=== PATIENT | female | born 1935 | race Caucasian/White ===

== ENCOUNTER 2018-10-15 16:42 | Inpatient (IN) ==
[2018-10-16] MEDS ORDERED: Naloxone 0.4 MG/ML INJ IVP PRN (03:35)
[2018-10-16] MEDS ORDERED: Ondansetron 4 MG/2 ML VIAL IVP PRN (03:35)
--- NOTE | 2018-10-16 03:49 | Internal Med History&Physical ---
<Maria Luisa Smith - Last Filed: 10/16/18 04:41> Date of Encounter: 10/16/18 Time of Encounter: 03:00 Internal Medicine - H&P: HPI Chief complaint: leg edema History of present illness: Ms. Peng is a 83 year old female past medical history of atrial fibrillation, provoked right lower extremity blood clot, diabetes on insulin, CHF, CKD stage IV, hypertension, hypothyroidism, hyperlipidemia who was transferred from [facility]. She was presented to [facility] after noticing +3 pitting edema bilateral lower extremities. She reported yesterday she started having episodes of emesis which was clear in nature she is unsure of the etiology of emesis but reported she was recently on antibiotics for UTI although no further symptoms of UTI. Emesis was nonbloody and she had no dysphasia or abdominal pain associated with it. She was able to tolerate oral intake although was limited. She reported the lower extremity edema was new in onset although she was taking her oral Lasix but she does have history of CHF. At [facility] she was noted to have elevated BNP at 693 with elevated creatinine of 2.8 and BUN at 44. She was also noted to have troponin 0.07. His morning she is resting comfortably in bed and reports after receiving IV Lasix at the outside facility she had significant improvement in lower extremity edema is feeling much better now. She denies any further episode of nausea or emesis since presenting to [facility]. She also denies chest pain, shortness of breath, follow pain, hematochezia, hematemesis or dysuria. Past Med Surg Social Fam HX - Past Medical History Medical history: arthritis, atrial fibrillation, CHF, COPD, coronary artery disease, DVT, diabetes, hyperlipidemia, hypertension, myocardial infarction, renal disease, thyroid disease Additional medical history: rt leg mole, melanoma, removed Psychiatric history: anxiety - Past Surgical History Surgical History: , cataract, hysterectomy, orthopedic, other, RAYMOND/BSO Additional surgical history: cardiac stents, cataracts,gall stones removed - Social History Smoking Status: Never smoker Smokeless Tobacco Status: No Alcohol use: none Drug use: none - Family History Mother Living Status: Hx Family Cardiac Disorders: Yes Father Adopted: No Family Member Ethnicity: Non- Living Status: Hx Family Cardiac Disorders: Yes (unknown type but of cardiac disease) Hx Family Respiratory Disorders: No Hx Family Cancer: No Hx Family GI Disorders: No Hx Family Endocrine Disorder: Yes Hx Family Neuromuscular Disorders: No Hx Family Neurologic Disorders: No Hx Family HEENT Disorders: No Hx Family Autoimmune Disorders: No Internal Medicine - H&P: Meds Levothyroxine [Synthroid] 88 mcg PO DAILY 01/22/16 [History] hydrALAZINE [HydrALAZINE] 25 mg PO QID 01/22/16 [History] Amiodarone [Cordarone] 200 mg PO DAILY 03/25/16 [History] Docusate [Colace] 100 mg PO BID 03/25/16 [History] Acetaminophen [Tylenol] 650 mg PO Q6HR PRN #0 tablet 04/15/16 [Rx] Albuterol Sulfate [Ventolin Hfa] 1 puff IH Q4H PRN 06/13/16 [History] Allopurinol [Zyloprim 100 MG] 100 mg PO DAILY 03/19/18 [History] Atorvastatin [Lipitor] 10 mg PO DAILY 03/19/18 [History] Carvedilol 3.125 mg PO BID #60 tab 03/19/18 [Rx] Cholecalciferol (Vitamin D3) [Vitamin D3] 2,000 unit PO DAILY 03/19/18 [History] Furosemide [Lasix] 40 mg PO DAILY #60 tablet 03/19/18 [Rx] Aspirin [Lo-Dose Aspirin EC] 81 mg PO DAILY 08/25/18 [History] HYDROcodone/Acet 5/325 mg [[place] 5-325 mg] 1 tab PO Q6H PRN 08/25/18 [History] Hydralazine HCl 50 mg PO QID 08/25/18 [History] Insulin DETEMIR [Levemir] 10 unit SQ HS 08/25/18 [History] Insulin DETEMIR [Levemir] 15 unit SQ QAM 08/25/18 [History] Isosorbide MONOnitrate (24 HR) [Imdur] 60 mg PO DAILY 08/25/18 [History] Loperamide HCl [Imodium A-D] 2 mg PO Q4H PRN 08/25/18 [History] NIFEdipine [Nifedipine ER] 30 mg PO DAILY 08/25/18 [History] Polyethylene Glycol 3350 [MiraLAX] 17 gm PO DAILY 08/25/18 [History] Promethazine [Phenergan] 25 mg PO Q6HR PRN 08/25/18 [History] Saliva Stimulant [Biotene Moisturizing Rinse] 44.3 ml MM TID PRN 08/25/18 [History] Sennosides [Senna] 17.2 mg PO BID 08/25/18 [History] Allergy/AdvReac Type Severity Reaction Status Date / Time acetaminophen [From Vicodin] Allergy See Verified 03/19/18 12:28 Comments Cyclobenzaprine Allergy See Verified 03/19/18 12:28 [From Flexeril] Comments hydrocodone [From Vicodin] Allergy See Verified 03/19/18 12:28 Comments simvastatin AdvReac Muscle Pain Verified 03/19/18 12:28 All Systems PM: A 10-system review of systems was performed and is negative for pertinent findings except as documented above in the HPI. - Constitutional Constitutional: no chills, no fever(s), no weakness - EENT Eyes: no blurry vision, no loss of vision Nose, mouth and throat: dry mouth, no dysphagia, no epistaxis - Cardiovascular Cardiovascular ROS IM: edema, no chest pain, no diaphoresis, no dyspnea, no orthopnea, no palpitations - Respiratory Respiratory: no cough, no dyspnea, no hemoptysis, no wheezing - Gastrointestinal Gastrointestinal: nausea, vomiting, no abdominal pain, no constipation, no diarrhea - Genitourinary Genitourinary: urinary incontinence, no difficulty urinating, no difficulty voiding, no dysuria - Musculoskeletal Musculoskeletal ROS IM: no myalgias, no numbness, no tingling - Integumentary Integumentary IM: no new lesions, no skin ulcer (sacral), no jaundice - Neurological Neurological ROS: no numbness, no paresthesias, no tingling - Psychiatric Psychiatric: no anxiety, no depression - Constitutional Vitals: Temp Pulse Resp BP Pulse Ox 99.6 F 75 15 167/68 91 10/16/18 02:41 10/16/18 02:41 10/16/18 02:41 10/16/18 02:41 10/16/18 02:41 Exam: Gen: Vitals noted. No acute distress. Appears comfortable. Eyes: anicteric sclerae, moist conjunctivae; no lid-lag HENT: Atraumatic; oropharynx clear with dry mucus membranes, and no mucosal ulcerations; normal hard and soft palate Neck: Trachea midline; supple, no thyromegaly Cardiac: RRR, no murmur, +S1/S2. No JVD noted. Pulmonary: CTA bilaterally, no wheezes, rales; mild rhonchi at all lung lobes, equal chest expansion Abdomen: soft, nontender, no guarding. No masses or hepatosplenomegaly MSK: ROM intact, no joint swelling noted Extremities: trace pitting edema bilateral lower extremities, nontender calf Skin: Normal temperature, turgor; no rash, ulcers or subcutaneous nodules Neuro: moves all extremities, no focal deficits. Psych: Appropriate mood and behavior. A&Ox3 - Assessment and Plan (1) CHF exacerbation Current Visit: Yes Status: Acute Assessment and plan: Presented to an outside facility due to bilateral lower extremity edema which was +3 in nature. Received 40 mg IV furosemide at outside facility and lower extremity edema has decreased significantly to trace pitting edema. Exacerbation likely secondary to nonabsorbing oral furosemide due to nausea and emesis. Previous echo was on 08/24/18 and showed EF of 50-55% with mild LVH and mild LV diastolic dysfunction. Continue to monitor intake and output. Continue 40 mg IV Lasix daily. Continue monitor BMP. Continue fluid restriction diet of 1.5 L Daily weight TSH peding Qualifiers: Heart failure type: diastolic Qualified Code(s): I50.33 - Acute on chronic diastolic (congestive) heart failure (2) Nausea & vomiting Current Visit: Yes Status: Acute Assessment and plan: Reports nausea and vomiting onset yesterday it was nonbloody and nonbilious in nature; unknown etiology. Denied any abdominal pain, fever or chills. Has had no further episodes of nausea and emesis since presenting to [facility] and has been tolerating diet. When necessary Zofran ordered. Qualifiers: Vomiting type: unspecified Vomiting Intractability: non-intractable Qualified Code(s): R11.2 - Nausea with vomiting, unspecified (3) Diabetes mellitus Current Visit: Yes Status: Acute Assessment and plan: History of type 2 diabetes is on long-acting insulin outside facility. Continue sliding-scale insulin with diabetic diet. Qualifiers: Diabetes mellitus type: type 2 Diabetes mellitus [facility] insulin use: with exterminator use Diabetes mellitus complication status: with unspecified complications Qualified Code(s): E11.8 - Type 2 diabetes mellitus with unspecified complications; Z79.4 - custodial (current) use of insulin (4) Elevated troponin Current Visit: Yes Status: Acute Assessment and plan: Troponin noted to be 0.07 at the outside facility, likely demand ischemia EKG does not show any acute changes Not complaining of chest pain Trending troponin (5) CKD (chronic kidney disease), stage IV Current Visit: Yes Status: Acute Assessment and plan: History of CKD stage IV baseline GFR since June has been 15. Her creatinine is 2.88 which also appears to be at baseline. Currently producing urine although she is incontinent. (6) Hypertension Current Visit: Yes Status: Acute Assessment and plan: Continue home hydralazine and carvedilol Qualifiers: Hypertension type: essential hypertension Qualified Code(s): I10 - Essential (primary) hypertension (7) Hyperlipidemia Current Visit: Yes Status: Acute Assessment and plan: Continue home atorvastatin Qualifiers: Hyperlipidemia type: unspecified Qualified Code(s): E78.5 - Hyperlipidemia, unspecified (8) Sacral decubitus ulcer, stage II Current Visit: Yes Status: Acute Assessment and plan: Decubital ulcer from outside facility received daily wound care by nursing Continue daily dressing change by nursing here. (9) Hypothyroidism Current Visit: Yes Status: Acute Assessment and plan: Continue home levothyroxine. TSH pending Qualifiers: Hypothyroidism type: unspecified Qualified Code(s): E03.9 - Hypothyroidism, unspecified (10) DVT prophylaxis Current Visit: No Status: Acute Assessment and plan: Subcutaneous heparin every 12 hours - Time Spent With Patient Total time spent is greater than 50% in coordination of care (as documented) at patient's floor/unit and/or counseling patient: <Logan Beltran - Last Filed: 10/16/18 05:44> Date of Encounter: 10/16/18 Internal Medicine - H&P: HPI History of present illness: Ms. Peng is a 83 year old female All Systems PM: A 10-system review of systems was performed and is negative for pertinent findings except as documented above in the HPI. - Constitutional Vitals: Temp Pulse Resp BP Pulse Ox 99.6 F 75 15 167/68 91 10/16/18 02:41 10/16/18 02:41 10/16/18 02:41 10/16/18 02:41 10/16/18 02:41 Internal Med - H&P Results - Labs CBC & Chem 7: 10/16/18 04:18 10/16/18 04:18 Labs: Short CBC 10/16/18 Range/Units 04:18 WBC 12.9 H (4.3-11.1) K/mcL Hgb 9.9 L (11.5-15.4) g/dL Hct 29.1 L (35.3-44.9) % Plt Count 195 (140-400) K/mcL Neutrophils # 11.0 H (1.6-8.9) K/mcL BMP 10/16/18 04:18 Sodium 137 Potassium 3.4 L Chloride 97 L Carbon Dioxide 28 BUN 43 H Creatinine 2.70 H Glucose 164 H Calcium 9.4 Cardiac Enzymes 10/16/18 Range/Units 04:18 Troponin I 0.07 H* (< 0.04) ng/mL - Time Spent With Patient Total time spent is greater than 50% in coordination of care (as documented) at patient's floor/unit and/or counseling patient: - Attending Attestation I saw and evaluated the patient. I reviewed the residents note, performed my own physical examination and agree with findings and plan as documented in the residents note. Patient seen and examined on 10/16/18. Patient presented with CHF exacerbation and lower extremity edema. Elevated troponin likely secondary to CHF as well as kidney disease. Patient also has a sacral decubital ulcer, we will continue with dressing changes, and consider wound care consult if needed. Patient does not see wound care for it out patient. We will continue with lasix, and monitor her renal function. If renal function continues to worsen, consider nephrology c onsultation.
[2018-10-16] MEDS ORDERED: Dextrose Gel 15 GM/37.5 ML TUBE PO PRN ×2 (03:55)
[2018-10-16] MEDS ORDERED: D5% in Water 1,000 ML IVC PRN (03:55)
[2018-10-16] MEDS ORDERED: *HR* Dextrose 50 % in Water (Syg) 50 ML SYRINGE IVP PRN (03:55)
[2018-10-16 04:49] LABS: Basophils % 0.2 %; Eosinophils % 0.2 %; Hematocrit 29.1 % (35.3-44.9); Hemoglobin 9.9 g/dL (11.5-15.4); Immature Granulocytes % 0.4 % (0-4); Lymphocytes # 0.8 K/mcL (0.6-4.6); Lymphocytes % 6.1 %; Mean Corpuscular Hemoglobin 35.4 pg (28.0-33.3); Mean Corpuscular Volume 103.9 fL (83.0-100.0); Mean Platelet Volume 11.2 fL (9.4-12.4); Monocytes # 0.9 K/mcL (0.0-1.3); Monocytes % 7.3 %; Platelet Count 195 K/mcL (140-400); Red Cell Distribution Width 14.6 % (11.5-14.5); Segmented Neutrophils % 85.8 %
[2018-10-16] MEDS: *HR* Heparin 5,000 UNIT/ML VIAL SQ SCH ×2 (04:56→17:55)
[2018-10-16 05:07] LABS: Magnesium 1.9 mg/dL (1.6-2.6)
[2018-10-16 05:08] LABS: Calcium 9.4 mg/dL (8.6-10.3); Potassium 3.4 mEq/L (3.5-5.1)
[2018-10-16 05:18] LABS: Troponin I 0.07 ng/mL (< 0.04)
[2018-10-16] MEDS: hydrALAZINE 25 MG TABLET PO SCH ×4 (08:33→19:49)
[2018-10-16] MEDS: Aspirin Enteric Coated 81 MG Tablet PO SCH (08:33)
[2018-10-16] MEDS: *HR* Amiodarone 200 MG TABLET PO SCH (08:33)
[2018-10-16] MEDS: Furosemide 40 MG/4 ML VIAL IVP SCH (08:34)
[2018-10-16] MEDS: Insulin LISPRO 300 UNITS/3 ML VIAL SQ SCH ×4 (08:34→21:04)
[2018-10-16] MEDS: Isosorbide MONOnitrate (24 HR) 30 MG TAB.ER.24H PO SCH (17:13)
[2018-10-17 04:46] LABS: Basophils % 0.3 %; Eosinophils # 0.2 K/mcL (0.0-0.6); Eosinophils % 2.4 %; Hematocrit 27.8 % (35.3-44.9); Hemoglobin 9.2 g/dL (11.5-15.4); Immature Granulocytes % 0.3 % (0-4); Lymphocytes % 14.7 %; Mean Corpuscular HGB Conc 33.1 g/dL (31.6-35.5); Mean Corpuscular Volume 105.7 fL (83.0-100.0); Mean Platelet Volume 11.2 fL (9.4-12.4); Monocytes # 0.7 K/mcL (0.0-1.3); Monocytes % 9.9 %; Neutrophils # 4.9 K/mcL (1.6-8.9); Platelet Count 180 K/mcL (140-400); Red Blood Count 2.63 M/mcL (3.82-4.97); Red Cell Distribution Width 14.5 % (11.5-14.5); Segmented Neutrophils % 72.4 %
[2018-10-17 05:05] LABS: Calcium 9.7 mg/dL (8.6-10.3); Potassium 3.9 mEq/L (3.5-5.1)
[2018-10-17] MEDS: *HR* Heparin 5,000 UNIT/ML VIAL SQ SCH ×2 (05:20→17:16)
[2018-10-17] MEDS: Aspirin Enteric Coated 81 MG Tablet PO SCH (09:21)
[2018-10-17] MEDS: hydrALAZINE 25 MG TABLET PO SCH ×4 (09:21→21:41)
[2018-10-17] MEDS: Furosemide 40 MG/4 ML VIAL IVP SCH (09:21)
[2018-10-17] MEDS: *HR* Amiodarone 200 MG TABLET PO SCH (09:21)
[2018-10-17] MEDS: Cholecalciferol (D-3) 1,000 UNIT TABLET PO SCH (09:21)
[2018-10-17] MEDS: Isosorbide MONOnitrate (24 HR) 30 MG TAB.ER.24H PO SCH (09:21)
[2018-10-17] MEDS: Insulin LISPRO 300 UNITS/3 ML VIAL SQ SCH ×4 (09:24→21:40)
[2018-10-17] MEDS ORDERED: Acetaminophen 325 MG TABLET PO PRN (16:05)
[2018-10-17] MEDS ORDERED: *HR* HYDROcodone/Acet 5/325 mg TABLET PO PRN (16:05)
--- NOTE | 2018-10-17 16:20 | Internal Med Progress Note ---
Hospitalist Progress Note - Encounter Date of Encounter: 10/17/18 Time of Encounter: 14:00 - Subjective Interval History: Patient was seen and examined at bedside currently states that her breathing has improved as well as lower extremity edema and is feeling much better. Denies any chest pain or shortness of breath - Exam Vitals: Temp Pulse Resp BP Pulse Ox 98.8 F 60 16 120/64 89 10/17/18 15:26 10/17/18 15:26 10/17/18 15:26 10/17/18 15:26 10/17/18 15:26 Exam: Gen: Vitals noted. No acute distress. Appears comfortable. Eyes: anicteric sclerae, moist conjunctivae; no lid-lag HENT: Atraumatic; oropharynx clear with dry mucus membranes, and no mucosal ulcerations; normal hard and soft palate Neck: Trachea midline; supple, no thyromegaly Cardiac: RRR, no murmur, +S1/S2. No JVD noted. Pulmonary: CTA bilaterally, no wheezes, rales; mild rhonchi at all lung lobes, equal chest expansion Abdomen: soft, nontender, no guarding. No masses or hepatosplenomegaly MSK: ROM intact, no joint swelling noted Extremities: trace pitting edema bilateral lower extremities, nontender calf Skin: Normal temperature, turgor; no rash, ulcers or subcutaneous nodules Neuro: moves all extremities, no focal deficits. Psych: Appropriate mood and behavior. A&Ox3 - Assessment and Plan (1) CHF exacerbation Current Visit: Yes Status: Acute Assessment and Plan: Presented to an outside facility due to bilateral lower extremity edema which was +3 in nature.- Edema has improved trace edema to lower strength bilaterally We will continue with IV Lasix today and convert to oral in the a.m. Monitor intake and output daily weights Low-sodium diet with 1.5 L fluid restriction TSH within normal limits Oxygen as needed to maintain SPO2 greater than 90% (2) DVT prophylaxis Current Visit: No Status: Acute Assessment and Plan: Subcutaneous heparin every 12 hours (3) Nausea & vomiting Current Visit: Yes Status: Acute Assessment and Plan: Reports nausea and vomiting onset it was nonbloody and nonbilious in nature; unknown etiology. Denied any abdominal pain, fever or chills. Has had no further episodes of nausea and emesis since presenting to [facility] and has been tolerating diet. When necessary Zofran ordered. (4) Diabetes mellitus Current Visit: Yes Status: Acute Assessment and Plan: History of type 2 diabetes is on long-acting insulin outside facility. Continue sliding-scale insulin with diabetic diet. (5) CKD (chronic kidney disease), stage IV Current Visit: Yes Status: Acute Assessment and Plan: History of CKD stage IV baseline GFR since June has been 15. Her creatinine is 2.75 which also appears to be at baseline. Currently producing urine although she is incontinent. (6) Hypertension Current Visit: Yes Status: Acute Assessment and Plan: Continue home hydralazine and carvedilol (7) Hyperlipidemia Current Visit: Yes Status: Acute Assessment and Plan: Continue home atorvastatin (8) Hypothyroidism Current Visit: Yes Status: Acute Assessment and Plan: Continue home levothyroxine. TSH within normal limits (9) Sacral decubitus ulcer, stage II Current Visit: Yes Status: Acute Assessment and Plan: Decubital ulcer from outside facility received daily wound care by nursing Continue daily dressing change by nursing here. (10) Elevated troponin Current Visit: Yes Status: Acute Assessment and Plan: Troponin elevated, likely demand ischemia-denies any chest pain EKG does not show any acute changes Continuous cardiac monitoring - Time Spent with Patient Total time spent is greater than 50% in coordination of care (as documented) at patient's floor/unit and/or counseling patient: Internal Medicine: Result - Labs CBC & Chem 7: 10/17/18 04:01 10/17/18 04:01 Labs: Short CBC 10/17/18 Range/Units 04:01 WBC 6.8 (4.3-11.1) K/mcL Hgb 9.2 L (11.5-15.4) g/dL Hct 27.8 L (35.3-44.9) % Plt Count 180 (140-400) K/mcL Neutrophils # 4.9 (1.6-8.9) K/mcL BMP 10/17/18 04:01 Sodium 138 Potassium 3.9 Chloride 99 Carbon Dioxide 29 BUN 49 H Creatinine 2.75 H Glucose 166 H Calcium 9.7 Cardiac Enzymes 10/16/18 Range/Units 17:51 Troponin I 0.12 H* (< 0.04) ng/mL Consult Discharge Plan - Plan Referrals: Tacos Fox MD [Partnered Physician] - (Appointment has been requested.) __ (1) CHF exacerbation Qualifiers: Heart failure type: diastolic Qualified Code(s): I50.33 - Acute on chronic diastolic (congestive) heart failure (3) Nausea & vomiting Qualifiers: Vomiting type: unspecified Vomiting Intractability: non-intractable Qualified Code(s): R11.2 - Nausea with vomiting, unspecified (4) Diabetes mellitus Qualifiers: Diabetes mellitus type: type 2 Diabetes mellitus shelter insulin use: with superintendent marine oil [employer] use Diabetes mellitus complication status: with unspecified complica tions Qualified Code(s): E11.8 - Type 2 diabetes mellitus with unspecified complications; Z79.4 - group home (current) use of insulin (6) Hypertension Qualifiers: Hypertension type: essential hypertension Qualified Code(s): I10 - Essential (primary) hypertension (7) Hyperlipidemia Qualifiers: Hyperlipidemia type: unspecified Qualified Code(s): E78.5 - Hyperlipidemia, unspecified (8) Hypothyroidism Qualifiers: Hypothyroidism type: unspecified Qualified Code(s): E03.9 - Hypothyroidism, unspecified
[2018-10-18] MEDS: *HR* Heparin 5,000 UNIT/ML VIAL SQ SCH (05:49)
[2018-10-18 06:42] LABS: Basophils % 0.2 %; Eosinophils # 0.2 K/mcL (0.0-0.6); Eosinophils % 2.7 %; Hematocrit 27.7 % (35.3-44.9); Hemoglobin 9.1 g/dL (11.5-15.4); Immature Granulocytes % 0.5 % (0-4); Lymphocytes % 18.8 %; Mean Corpuscular HGB Conc 32.9 g/dL (31.6-35.5); Mean Corpuscular Volume 106.5 fL (83.0-100.0); Mean Platelet Volume 11.1 fL (9.4-12.4); Monocytes # 0.6 K/mcL (0.0-1.3); Neutrophils # 3.7 K/mcL (1.6-8.9); Platelet Count 199 K/mcL (140-400); Red Cell Distribution Width 14.3 % (11.5-14.5); Segmented Neutrophils % 67.8 %
[2018-10-18 07:00] LABS: Calcium 10.1 mg/dL (8.6-10.3); Potassium 3.7 mEq/L (3.5-5.1)
[2018-10-18] MEDS: Aspirin Enteric Coated 81 MG Tablet PO SCH (08:13)
[2018-10-18] MEDS: Cholecalciferol (D-3) 1,000 UNIT TABLET PO SCH (08:13)
[2018-10-18] MEDS: Isosorbide MONOnitrate (24 HR) 30 MG TAB.ER.24H PO SCH (08:14)
[2018-10-18] MEDS: Insulin LISPRO 300 UNITS/3 ML VIAL SQ SCH ×2 (08:14→11:41)
[2018-10-18] MEDS: hydrALAZINE 25 MG TABLET PO SCH ×2 (08:14→11:41)
[2018-10-18] MEDS: *HR* Amiodarone 200 MG TABLET PO SCH (08:14)
[2018-10-18] MEDS ORDERED: Furosemide 40 MG TABLET PO SCH (09:00)
[2018-10-18 11:24] VITALS: BP 154/64
--- NOTE | 2018-10-18 13:32 | Discharge Summary ---
- NOTES TO OUTPATIENT PROVIDER Notes to Outpatient Provider: monitor chemistry - cont lasix 40mg daily Date of Encounter: 10/18/18 Time of Encounter: 13:29 - Discharge Diagnosis (1) CHF exacerbation Priority: Primary Status: Acute Qualifiers: Heart failure type: diastolic Qualified Code(s): I50.33 - Acute on chronic diastolic (congestive) heart failure (2) Nausea & vomiting Priority: Secondary Status: Acute Qualifiers: Vomiting type: unspecified Vomiting Intractability: non-intractable Qualified Code(s): R11.2 - Nausea with vomiting, unspecified (3) Diabetes mellitus Priority: Secondary Status: Acute Qualifiers: Diabetes mellitus type: type 2 Diabetes mellitus bliss press operator insulin use: with bliss press operator use Diabetes mellitus complication status: with unspecified complications Qualified Code(s): E11.8 - Type 2 diabetes mellitus with unspecified complications; Z79.4 - order manager (current) use of insulin (4) CKD (chronic kidney disease), stage IV Priority: Secondary Status: Acute (5) Hypertension Priority: Secondary Status: Acute Qualifiers: Hypertension type: essential hypertension Qualified Code(s): I10 - Essential (primary) hypertension (6) Hyperlipidemia Priority: Secondary Status: Acute Qualifiers: Hyperlipidemia type: unspecified Qualified Code(s): E78.5 - Hyperlipidemia, unspecified (7) Hypothyroidism Priority: Secondary Status: Acute Qualifiers: Hypothyroidism type: unspecified Qualified Code(s): E03.9 - Hypothyroidism, unspecified (8) Sacral decubitus ulcer, stage II Priority: Secondary Status: Acute (9) Elevated troponin Priority: Secondary Status: Acute Hospital course: Ms. Peng is a 83 year old female astragal history of atrial fibrillation provoked right lower extremity blood clot diabetes on insulin CHF CKG stage IV hypertension hypothyroid hyperlipidemia transferred from [facility] after presenting with 3+ pitting edema to lower extremities bilaterally. She did have episode of emesis prior to presentation was recently treated for UTI she was noted to have elevated BNP and elevated creatinine she was given IV Lasix and transferred to [facility] for further workup and evaluation. Patient was diuresed placed on fluid restriction lower extremity swelling improved-previous echo completed on 08/24/18 showed EF of 50-55% with mild LVH and mild LV diastolic dysfunction. Troponin initially elevated but no chest pain -most likely demand ischemia Patient states lower extremity swelling greatly improved no nausea or vomiting during admission or urinary complaints.-Creatinine remained around baseline during admission-patient was transitioned back to oral Lasix-vital signs are stable at this time-advised patient to follow-up with primary care provider and nephrology. Patient verbalized understanding - Time Spent with Patient Total time spent providing and/or coordinating discharge services: - Discharge Medications Prescriptions: Continue Levothyroxine [Synthroid] 88 mcg PO QAM hydrALAZINE [HydrALAZINE] 25 mg PO QID Hydralazine HCl 50 mg PO QID HYDROcodone/Acet 5/325 mg [Weldon 5-325 mg] 1 tab PO Q6H PRN PRN Reason: Pain Isosorbide MONOnitrate (24 HR) [Imdur] 60 mg PO DAILY Loperamide HCl [Imodium A-D] 2 mg PO Q4H PRN PRN Reason: Diarrhea Promethazine [Phenergan] 25 mg PO Q6HR PRN PRN Reason: Nausea Saliva Stimulant [Biotene Moisturizing Rinse] 0 ml MM AD PRN PRN Reason: Dry Mouth Insulin DETEMIR [Levemir] 15 unit SQ HS Insulin DETEMIR [Levemir] 20 unit SQ QAM Sennosides [Senna] 17.2 mg PO BID Acetaminophen [Tylenol] 650 mg PO Q6HR PRN PRN Reason: PAIN/FEVER Aspirin 81 mg PO QAM NIFEdipine [Nifedipine ER] 60 mg PO DAILY Polyethylene Glycol 3350 [Natura-Lax] 17 gm PO DAILY Docusate [Colace] 100 mg PO BID Amiodarone [Cordarone] 200 mg PO QAM Albuterol Sulfate [Ventolin Hfa] 2 puff IH Q4H PRN PRN Reason: Shortness Of Breath/Wheezing Allopurinol [Zyloprim 100 MG] 100 mg PO DAILY Atorvastatin [Lipitor] 10 mg PO DAILY Cholecalciferol (Vitamin D3) [Vitamin D3] 2,000 unit PO DAILY Carvedilol 3.125 mg PO BID #60 tab Furosemide [Lasix] 40 mg PO DAILY #60 tablet Home Medications: Levothyroxine [Synthroid] 88 mcg PO QAM 01/22/16 [History] hydrALAZINE [HydrALAZINE] 25 mg PO QID 01/22/16 [History] Amiodarone [Cordarone] 200 mg PO QAM 03/25/16 [History] Docusate [Colace] 100 mg PO BID 03/25/16 [History] Albuterol Sulfate [Ventolin Hfa] 2 puff IH Q4H PRN 06/13/16 [History] Allopurinol [Zyloprim 100 MG] 100 mg PO DAILY 03/19/18 [History] Atorvastatin [Lipitor] 10 mg PO DAILY 03/19/18 [History] Carvedilol 3.125 mg PO BID #60 tab 03/19/18 [Rx] Cholecalciferol (Vitamin D3) [Vitamin D3] 2,000 unit PO DAILY 03/19/18 [History] Furosemide [Lasix] 40 mg PO DAILY #60 tablet 03/19/18 [Rx] HYDROcodone/Acet 5/325 mg [Weldon 5-325 mg] 1 tab PO Q6H PRN 08/25/18 [History] Hydralazine HCl 50 mg PO QID 08/25/18 [History] Insulin DETEMIR [Levemir] 15 unit SQ HS 08/25/18 [History] Insulin DETEMIR [Levemir] 20 unit SQ QAM 08/25/18 [History] Isosorbide MONOnitrate (24 HR) [Imdur] 60 mg PO DAILY 08/25/18 [History] Loperamide HCl [Imodium A-D] 2 mg PO Q4H PRN 08/25/18 [History] Promethazine [Phenergan] 25 mg PO Q6HR PRN 08/25/18 [History] Saliva Stimulant [Biotene Moisturizing Rinse] 0 ml MM AD PRN 08/25/18 [History] Sennosides [Senna] 17.2 mg PO BID 08/25/18 [History] Acetaminophen [Tylenol] 650 mg PO Q6HR PRN 10/17/18 [History] Aspirin 81 mg PO QAM 10/17/18 [History] NIFEdipine [Nifedipine ER] 60 mg PO DAILY 10/17/18 [History] Polyethylene Glycol 3350 [Natura-Lax] 17 gm PO DAILY 10/17/18 [History] Allergies/Adverse Reactions: Allergy/AdvReac Type Severity Reaction Status Date / Time acetaminophen [From Vicodin] Allergy See Verified 03/19/18 12:28 Comments Cyclobenzaprine Allergy See Verified 03/19/18 12:28 [From Flexeril] Comments hydrocodone [From Vicodin] Allergy See Verified 03/19/18 12:28 Comments simvastatin AdvReac Muscle Pain Verified 03/19/18 12:28 Date of admission: 10/17/18 17:56 Primary care physician: PCP NONE Consults: 10/16/18 08:22 Consult to Nurse Navigator [CONS] Routine Comment: CHF Discharging clinician: Gloria Herrera Anticipated date of discharge: 10/18/18 - Constitutional Vitals: Temp Pulse Resp BP Pulse Ox 98.9 F 54 20 154/64 94 10/18/18 11:22 10/18/18 11:22 10/18/18 11:22 10/18/18 11:22 10/18/18 12:11 Exam: Skin: Free of rash and discoloration. Eyes: Sclera is white. There is no discharge from eyes. ENMT: Oral/pharyngeal mucosa is normal in appearance. There is no discharge from nose or ears. Respiratory: Normal breath sounds with no crackles and wheezes bilaterally. CV: Heart is regular with no gallop or murmur. GI: Abdomen is flat and soft with no palpable mass or visceromegaly. : There is no tenderness in patient's flanks bilaterally. Neuro exam: He has good strength in upper and lower extremities. He has normal eye movements. Psychiatric: He has normal affect. His thought process is appropriate to the situation. - Patient Status Disposition: Home, Self-Care Condition: Good Functional capacity at discharge: wheelchair bound Overall status at discharge: patient is back to baseline - Discharge Instructions Follow Up With: Tacos Fox MD [Partnered Physician] - (Appointment has been requested.) - Diet and Activity Activity: wear oxygen at all times Diet: advance to your usual diet
== END 2018-10-18 17:28 | disposition home or self-care (01) | DRG 291 ==
LOC: 3BNU
PROVIDERS: ADMIT Internal Medicine Nephrology; ATTEND Internal Medicine Nephrology

== ENCOUNTER 2019-02-25 18:16 | Inpatient (IN) ==
[2019-02-26] MEDS ORDERED: D5% in Water 1,000 ML IVC PRN
[2019-02-26] MEDS ORDERED: Dextrose Gel 15 GM/37.5 ML TUBE PO PRN ×2
[2019-02-26] MEDS ORDERED: *HR* Dextrose 50 % in Water (Syg) 50 ML SYRINGE IVP PRN
[2019-02-26] MEDS ORDERED: Albuterol 2.5 MG/3 ML NEBULIZER IH PRN (01:14)
[2019-02-26] MEDS ORDERED: 0.9 % Sodium Chloride 1,000 ML IVC SCH (01:15)
[2019-02-26] MEDS ORDERED: *HR* HYDROcodone/Acet 5/325 mg TABLET PO PRN (01:19)
[2019-02-26] MEDS ORDERED: Naloxone 0.4 MG/ML INJ IVP PRN (01:21)
[2019-02-26 01:55] LABS: Basophils % 0.1 %; Eosinophils # 0.2 K/mcL (0.0-0.6); Eosinophils % 1.7 %; Hematocrit 27.6 % (35.3-44.9); Hemoglobin 9.2 g/dL (11.5-15.4); Immature Granulocytes % 0.4 % (0-4); Lymphocytes # 1.1 K/mcL (0.6-4.6); Mean Corpuscular HGB Conc 33.3 g/dL (31.6-35.5); Mean Corpuscular Hemoglobin 34.2 pg (28.0-33.3); Mean Corpuscular Volume 102.6 fL (83.0-100.0); Monocytes % 9.3 %; Neutrophils # 8.6 K/mcL (1.6-8.9); Platelet Count 194 K/mcL (140-400); Red Blood Count 2.69 M/mcL (3.82-4.97); Red Cell Distribution Width 14.3 % (11.5-14.5); Segmented Neutrophils % 78.5 %
[2019-02-26] MEDS ORDERED: cefTRIAXone 2,000 MG in Water for inj. (sterile) 20 ML IVP SCH ×2 (02:00→11:00)
[2019-02-26] MEDS ORDERED: Azithromycin 500 MG in 0.9 % Sodium Chloride 250 ML IVPB SCH (02:00)
[2019-02-26 02:04] LABS: Albumin 3.7 g/dL (3.5-5.7); Albumin/Globulin Ratio 1.7 (1.1-2.2); Bilirubin,Total 1.3 mg/dL (0.3-1.0); Calcium 9.7 mg/dL (8.6-10.3); Globulin 2.2 g/dL (2.4-3.5); Magnesium 2.1 mg/dL (1.6-2.6); Potassium 3.4 mEq/L (3.5-5.1); Total Protein 5.9 g/dL (6.4-8.9)
[2019-02-26 02:08] LABS: Prothrombin Time 11.8 Seconds (9.4-12.1)
[2019-02-26 02:11] LABS: Activated Partial Thrombo Time 23.1 Seconds (26.0-36.0)
[2019-02-26] MEDS: *HR* Promethazine 25 MG/ML VIAL IVP PRN (02:50)
[2019-02-26] MEDS: *HR* Heparin 5,000 UNIT/ML VIAL SQ SCH ×3 (05:06→21:41)
[2019-02-26] MEDS ORDERED: Prochlorperazine 10 MG/2 ML VIAL IVP PRN (05:22)
[2019-02-26] MEDS ORDERED: Pantoprazole 40 MG VIAL IVP SCH (06:00)
[2019-02-26 07:34] LABS: Estimated Average Glucose 137 mg/dl
[2019-02-26] MEDS: Insulin LISPRO 300 UNITS/3 ML VIAL SQ SCH ×3 (08:05→16:46)
[2019-02-26] MEDS: carvediloL 6.25 MG TABLET PO SCH ×2 (08:06→17:42)
[2019-02-26] MEDS: Isosorbide MONOnitrate (24 HR) 60 MG TAB.ER.24H PO SCH (08:06)
[2019-02-26] MEDS: Sennosides 8.6 MG TABLET PO SCH ×2 (08:06→21:44)
[2019-02-26] MEDS: Aspirin 81 MG TAB.CHEW PO SCH (08:06)
[2019-02-26] MEDS: *HR* Amiodarone 200 MG TABLET PO SCH (08:06)
[2019-02-26] MEDS: Cholecalciferol (D-3) 1,000 UNIT (25MCG) TABLET PO SCH (08:06)
[2019-02-26] MEDS: hydrALAZINE 25 MG TABLET PO SCH ×4 (08:07→21:41)
[2019-02-26] MEDS: Insulin DETEMIR 100 UNIT/ML X5UNITS SQ SCH ×2 (08:11→21:41)
[2019-02-26] MEDS ORDERED: Azithromycin 250 MG TABLET PO SCH (11:00)
[2019-02-26] MEDS: Azithromycin 250 MG TABLET PO SCH (14:31)
[2019-02-27] MEDS ORDERED: *HR* Metoprolol 5 MG/5 ML VIAL IVP ONE (00:55)
[2019-02-27 04:21] LABS: Folate 11.6 ng/mL (3.0-16.0)
[2019-02-27] MEDS: *HR* Heparin 5,000 UNIT/ML VIAL SQ SCH ×3 (05:43→21:38)
[2019-02-27] MEDS: hydrALAZINE 25 MG TABLET PO SCH ×4 (07:20→22:22)
[2019-02-27] MEDS: Azithromycin 250 MG TABLET PO SCH (07:20)
[2019-02-27] MEDS: Cholecalciferol (D-3) 1,000 UNIT (25MCG) TABLET PO SCH (07:20)
[2019-02-27] MEDS: carvediloL 6.25 MG TABLET PO SCH ×2 (07:21→16:36)
[2019-02-27] MEDS: Aspirin 81 MG TAB.CHEW PO SCH (07:21)
[2019-02-27] MEDS: Insulin LISPRO 300 UNITS/3 ML VIAL SQ SCH ×3 (07:21→17:59)
[2019-02-27] MEDS: Sennosides 8.6 MG TABLET PO SCH ×2 (07:21→21:38)
[2019-02-27] MEDS: Isosorbide MONOnitrate (24 HR) 60 MG TAB.ER.24H PO SCH (07:21)
[2019-02-27] MEDS: Cefdinir 300 MG CAPSULE PO SCH (07:21)
[2019-02-27] MEDS: *HR* Amiodarone 200 MG TABLET PO SCH (07:21)
[2019-02-27] MEDS: Insulin DETEMIR 100 UNIT/ML X5UNITS SQ SCH ×2 (07:24→19:52)
[2019-02-27] MEDS: *HR* Promethazine 25 MG/ML VIAL IVP PRN (07:29)
[2019-02-27 09:28] LABS: Calcium 9.8 mg/dL (8.6-10.3)
[2019-02-27] MEDS ORDERED: Albuterol 2.5 MG/3 ML NEBULIZER IH PRN (10:07)
[2019-02-27] MEDS ORDERED: Lactulose Oral Soln 20 GM/30 ML UDC PO ONE (10:32)
[2019-02-27] MEDS: MethylPREDNISolone 40 MG/ML VIAL IVP SCH ×2 (11:11→16:36)
[2019-02-27] MEDS: Ipratropium/Albuterol Neb 3 ML IH SCH ×3 (11:20→19:52)
[2019-02-27] MEDS ORDERED: Albumin 25% 25gram/100mL 25 GM/100 ML IV.SOLN IVPB SCH (16:01)
[2019-02-27] MEDS: Albumin 25% 25gram/100mL 25 GM/100 ML IV.SOLN IVPB SCH (16:36)
[2019-02-27] MEDS: Furosemide 40 MG/4 ML VIAL IVP SCH (17:59)
[2019-02-28 05:15] LABS: Calcium 9.5 mg/dL (8.6-10.3); Potassium 3.8 mEq/L (3.5-5.1)
[2019-02-28] MEDS: *HR* Heparin 5,000 UNIT/ML VIAL SQ SCH ×3 (06:46→21:04)
[2019-02-28] MEDS: MethylPREDNISolone 40 MG/ML VIAL IVP SCH ×2 (06:46→17:07)
[2019-02-28] MEDS: Albumin 25% 25gram/100mL 25 GM/100 ML IV.SOLN IVPB SCH ×2 (06:47→14:46)
[2019-02-28] MEDS: Ipratropium/Albuterol Neb 3 ML IH SCH ×4 (07:27→20:04)
[2019-02-28] MEDS: Insulin LISPRO 300 UNITS/3 ML VIAL SQ SCH ×3 (08:58→17:07)
[2019-02-28] MEDS: Furosemide 40 MG/4 ML VIAL IVP SCH ×2 (08:58→17:07)
[2019-02-28] MEDS: Azithromycin 250 MG TABLET PO SCH (08:58)
[2019-02-28] MEDS: Cholecalciferol (D-3) 1,000 UNIT (25MCG) TABLET PO SCH (08:58)
[2019-02-28] MEDS: Cefdinir 300 MG CAPSULE PO SCH (08:59)
[2019-02-28] MEDS: Aspirin 81 MG TAB.CHEW PO SCH (08:59)
[2019-02-28] MEDS: *HR* Amiodarone 200 MG TABLET PO SCH (08:59)
[2019-02-28] MEDS: Sennosides 8.6 MG TABLET PO SCH ×2 (08:59→21:04)
[2019-02-28] MEDS: carvediloL 6.25 MG TABLET PO SCH ×2 (08:59→17:07)
[2019-02-28] MEDS: Isosorbide MONOnitrate (24 HR) 60 MG TAB.ER.24H PO SCH (08:59)
[2019-02-28] MEDS: hydrALAZINE 25 MG TABLET PO SCH ×4 (08:59→21:04)
[2019-02-28] MEDS: Insulin DETEMIR 100 UNIT/ML X5UNITS SQ SCH ×2 (10:21→21:04)
[2019-03-01] MEDS: Albumin 25% 25gram/100mL 25 GM/100 ML IV.SOLN IVPB SCH (06:02)
[2019-03-01] MEDS: *HR* Heparin 5,000 UNIT/ML VIAL SQ SCH ×3 (06:07→21:41)
[2019-03-01] MEDS: MethylPREDNISolone 40 MG/ML VIAL IVP SCH ×2 (06:07→18:01)
[2019-03-01 06:09] LABS: Calcium 9.9 mg/dL (8.6-10.3); Potassium 3.7 mEq/L (3.5-5.1)
[2019-03-01] MEDS: Ipratropium/Albuterol Neb 3 ML IH SCH ×4 (07:23→19:58)
[2019-03-01] MEDS: Insulin LISPRO 300 UNITS/3 ML VIAL SQ SCH ×3 (09:31→18:00)
[2019-03-01] MEDS: Furosemide 40 MG/4 ML VIAL IVP SCH (09:34)
[2019-03-01] MEDS: Aspirin 81 MG TAB.CHEW PO SCH (10:16)
[2019-03-01] MEDS: Sennosides 8.6 MG TABLET PO SCH ×2 (10:16→21:42)
[2019-03-01] MEDS: hydrALAZINE 25 MG TABLET PO SCH ×4 (10:16→21:42)
[2019-03-01] MEDS: Azithromycin 250 MG TABLET PO SCH (10:16)
[2019-03-01] MEDS: Cefdinir 300 MG CAPSULE PO SCH (10:16)
[2019-03-01] MEDS: Isosorbide MONOnitrate (24 HR) 60 MG TAB.ER.24H PO SCH (10:17)
[2019-03-01] MEDS: *HR* Amiodarone 200 MG TABLET PO SCH (10:17)
[2019-03-01] MEDS: carvediloL 6.25 MG TABLET PO SCH ×2 (10:17→17:59)
[2019-03-01] MEDS: Cholecalciferol (D-3) 1,000 UNIT (25MCG) TABLET PO SCH (10:17)
[2019-03-01] MEDS: Insulin DETEMIR 100 UNIT/ML X5UNITS SQ SCH ×2 (10:31→21:42)
[2019-03-02] MEDS: *HR* Heparin 5,000 UNIT/ML VIAL SQ SCH ×3 (05:31→21:57)
[2019-03-02 06:23] LABS: Hematocrit 26.4 % (35.3-44.9); Hemoglobin 8.5 g/dL (11.5-15.4); Immature Granulocytes % 0.3 % (0-4); Lymphocytes # 0.4 K/mcL (0.6-4.6); Lymphocytes % 5.5 %; Mean Corpuscular HGB Conc 32.2 g/dL (31.6-35.5); Mean Corpuscular Hemoglobin 33.7 pg (28.0-33.3); Mean Corpuscular Volume 104.8 fL (83.0-100.0); Mean Platelet Volume 11.8 fL (9.4-12.4); Monocytes # 0.3 K/mcL (0.0-1.3); Monocytes % 4.8 %; Neutrophils # 5.8 K/mcL (1.6-8.9); Platelet Count 194 K/mcL (140-400); Red Blood Count 2.52 M/mcL (3.82-4.97); Red Cell Distribution Width 14.5 % (11.5-14.5); Segmented Neutrophils % 89.4 %; White Blood Count 6.5 K/mcL (4.3-11.1)
[2019-03-02 06:40] LABS: BUN/Creatinine Ratio 23 (6-26); Blood Urea Nitrogen 76 mg/dL (8-23); Carbon Dioxide 30 mEq/L (23-29); Chloride 99 mEq/L (98-107); Glucose 93 mg/dL (70-105); Lactate Dehydrogenase 194 Units/L (140-271); Magnesium 2.9 mg/dL (1.6-2.6); Osmolality,Calculated 314 (280-300); Sodium 141 mEq/L (136-145); Total Protein 6.3 g/dL (6.4-8.9); eGFR For African Americans 16 (> 60); eGFR For Non-African Americans 13 (> 60)
[2019-03-02] MEDS: Ipratropium/Albuterol Neb 3 ML IH SCH ×4 (07:31→20:21)
[2019-03-02] MEDS: hydrALAZINE 25 MG TABLET PO SCH ×4 (07:56→21:58)
[2019-03-02] MEDS: Cefdinir 300 MG CAPSULE PO SCH (07:57)
[2019-03-02] MEDS: Cholecalciferol (D-3) 1,000 UNIT (25MCG) TABLET PO SCH (07:57)
[2019-03-02] MEDS: *HR* Amiodarone 200 MG TABLET PO SCH (07:57)
[2019-03-02] MEDS: Aspirin 81 MG TAB.CHEW PO SCH (07:57)
[2019-03-02] MEDS: carvediloL 6.25 MG TABLET PO SCH ×2 (07:57→18:02)
[2019-03-02] MEDS: Azithromycin 250 MG TABLET PO SCH (07:57)
[2019-03-02] MEDS: Isosorbide MONOnitrate (24 HR) 60 MG TAB.ER.24H PO SCH (07:57)
[2019-03-02] MEDS: Sennosides 8.6 MG TABLET PO SCH ×2 (07:57→21:58)
[2019-03-02] MEDS: Insulin LISPRO 300 UNITS/3 ML VIAL SQ SCH ×3 (07:58→18:02)
[2019-03-02] MEDS ORDERED: MethylPREDNISolone 40 MG/ML VIAL IVP SCH (09:00)
[2019-03-02] MEDS: Insulin DETEMIR 100 UNIT/ML X5UNITS SQ SCH ×2 (09:56→21:57)
[2019-03-03] MEDS: *HR* Heparin 5,000 UNIT/ML VIAL SQ SCH ×2 (05:44→21:06)
[2019-03-03 07:23] LABS: Calcium 9.6 mg/dL (8.6-10.3); Potassium 4.4 mEq/L (3.5-5.1)
[2019-03-03] MEDS: Ipratropium/Albuterol Neb 3 ML IH SCH ×4 (07:54→20:09)
[2019-03-03] MEDS: Sennosides 8.6 MG TABLET PO SCH ×2 (08:29→21:06)
[2019-03-03] MEDS: carvediloL 6.25 MG TABLET PO SCH (08:30)
[2019-03-03] MEDS: *HR* Amiodarone 200 MG TABLET PO SCH (08:30)
[2019-03-03] MEDS: hydrALAZINE 25 MG TABLET PO SCH ×2 (08:30→21:06)
[2019-03-03] MEDS: Isosorbide MONOnitrate (24 HR) 60 MG TAB.ER.24H PO SCH (08:30)
[2019-03-03] MEDS: Cefdinir 300 MG CAPSULE PO SCH (08:30)
[2019-03-03] MEDS: Insulin DETEMIR 100 UNIT/ML X5UNITS SQ SCH (08:31)
[2019-03-03] MEDS: Insulin LISPRO 300 UNITS/3 ML VIAL SQ SCH ×2 (08:37→12:03)
[2019-03-03] MEDS: Cholecalciferol (D-3) 1,000 UNIT (25MCG) TABLET PO SCH (08:37)
[2019-03-03] MEDS ORDERED: *HR* PHENYLEPHRINE 1,000 MCG/10 ML SYRINGE IVP ONE (12:37)
[2019-03-03] MEDS ORDERED: Lidocaine -MPF 4% 5 ML AMPUL ONE (12:38)
[2019-03-03] MEDS ORDERED: Dexamethasone 4 MG/ML VIAL ONE (12:38)
[2019-03-03] MEDS ORDERED: *HR* Rocuronium Bromide 50 MG/5 ML VIAL ONE (12:38)
[2019-03-03] MEDS ORDERED: Lidocaine -MPF 2% 2 ML VIAL ONE (12:38)
[2019-03-03] MEDS ORDERED: Ondansetron 4 MG/2 ML VIAL ONE (12:38)
[2019-03-03] MEDS ORDERED: *HR* Propofol 200 MG/20 ML VIAL IVP ONE (12:38)
[2019-03-03] MEDS ORDERED: *HR* FentaNYL (PF) 100 MCG/2 ML VIAL ONE (12:38)
[2019-03-03] MEDS ORDERED: *HR* OxyCODONE Immed Rel 5 MG TABLET PO PRN (13:36)
[2019-03-03] MEDS ORDERED: *HR* HYDROmorphone (PF) 1 MG/ML SYRINGE IVP PRN (13:36)
[2019-03-03] MEDS ORDERED: Bupivacaine/EPI 1:200k 0.5%PF 30 ML VIAL ONE (13:44)
[2019-03-03] MEDS ORDERED: Isovue-300 50ML VIAL ONE (13:44)
[2019-03-03] MEDS ORDERED: *HR* Atropine Sulfate 8 MG/20 ML VIAL IVP ONE (14:33)
[2019-03-03] MEDS ORDERED: Neostigmine Methylsulfate 3 MG/3 ML SYRINGE ONE (15:36)
[2019-03-03] MEDS ORDERED: D5% in 0.45% NACL 1,000 ML IVC ONE (16:16)
[2019-03-03] MEDS ORDERED: Dextrose Gel 15 GM/37.5 ML TUBE PO PRN ×2 (17:08)
[2019-03-03] MEDS ORDERED: *HR* Promethazine 25 MG/ML VIAL IVP PRN (17:08)
[2019-03-03] MEDS ORDERED: Prochlorperazine 10 MG/2 ML VIAL IVP PRN (17:08)
[2019-03-03] MEDS ORDERED: Naloxone 0.4 MG/ML INJ IVP PRN (17:08)
[2019-03-03] MEDS ORDERED: *HR* HYDROcodone/Acet 5/325 mg TABLET PO PRN (17:08)
[2019-03-03] MEDS ORDERED: *HR* Dextrose 50 % in Water (Syg) 50 ML SYRINGE IVP PRN (17:08)
[2019-03-03] MEDS ORDERED: Albuterol 2.5 MG/3 ML NEBULIZER IH PRN (17:08)
[2019-03-03] MEDS ORDERED: D5% in Water 1,000 ML IVC PRN (17:08)
[2019-03-03] MEDS ORDERED: Insulin DETEMIR 100 UNIT/ML X5UNITS SQ SCH (21:00)
[2019-03-04] MEDS: *HR* Heparin 5,000 UNIT/ML VIAL SQ SCH (05:18)
[2019-03-04 06:15] LABS: Hematocrit 25.7 % (35.3-44.9); Hemoglobin 8.3 g/dL (11.5-15.4)
[2019-03-04 06:36] LABS: Calcium 9.4 mg/dL (8.6-10.3); Potassium 4.6 mEq/L (3.5-5.1)
[2019-03-04] MEDS: Ipratropium/Albuterol Neb 3 ML IH SCH ×2 (07:34→11:12)
[2019-03-04] MEDS: Insulin LISPRO 300 UNITS/3 ML VIAL SQ SCH ×2 (07:57→11:54)
[2019-03-04] MEDS: hydrALAZINE 25 MG TABLET PO SCH ×2 (07:59→11:54)
[2019-03-04] MEDS ORDERED: carvediloL 6.25 MG TABLET PO SCH (08:00)
[2019-03-04] MEDS: Sennosides 8.6 MG TABLET PO SCH (08:00)
[2019-03-04] MEDS ORDERED: Cholecalciferol (D-3) 1,000 UNIT (25MCG) TABLET PO SCH (09:00)
[2019-03-04] MEDS ORDERED: Isosorbide MONOnitrate (24 HR) 60 MG TAB.ER.24H PO SCH (09:00)
[2019-03-04] MEDS ORDERED: *HR* Amiodarone 200 MG TABLET PO SCH (09:00)
[2019-03-04] MEDS ORDERED: Insulin DETEMIR 100 UNIT/ML X5UNITS SQ SCH (09:00)
[2019-03-04 10:48] VITALS: BP 176/71
== END 2019-03-04 14:47 | DRG 417 ==
LOC: 2ANU → SUATTDRO 21:16
PROVIDERS: ADMIT Internal Medicine; ATTEND Internal Medicine

== ENCOUNTER 2019-03-09 02:32 | Inpatient (IN) ==
[2019-03-09] MEDS ORDERED: Naloxone 0.4 MG/ML INJ IVP PRN (08:22)
--- NOTE | 2019-03-09 08:29 | Internal Med History&Physical ---
Date of Encounter: 03/09/19 Time of Encounter: 08:28 Internal Medicine - H&P: HPI Chief complaint: Abd pain Admitted From: Intrahospital Transfer History of present illness: Juanita Peng is an 83 F w hx HFpEF, A-Fib not on AC, DM2, CKD4, hypothyroidism, who is transferred from [place] [facility] for abd pain. Patient recently admitted here, discharged 03/04, for CAP and CHF exacerbation requiring intubation, abx, and neph-guided diuresis. A pleural effusion was tapped; transudative. During her stay, noted to have constipation w no BMs, and thus CT abd obtained which showed stable/known retroperitoneal hematoma but also pneumobilia and choledocho lithiasis. MRCP confirmed filling defect and thus GenSurg took patient for lap igor. She completed abx and was discharged to SNF. During her stay, she did have imaging evidence of cirrhosis felt possibly 2/2 amiodarone use. Mildly elevated troponin felt 2/2 CKD and demand ischemia. Given iron for iron deficiency anemia. During her stay, despite aggressive efforts, she did not have a BM although no stool burden was appreciated on imaging. Her PO intake remains poor. Following discharge to SNF, a few days later she developed lower abdominal pain. She did have her first BM yesterday, which was quite loose, and then today has had three subsequent small episodes diarrhea. She went to [place] [facility] yesterday, where a CT scan showed all stable findings as mentioned above but also colon wall thickening and edema suggestive of colitis. Pt WBC up to 13. They checked BCx x2, gave fluids and started Zosyn, and transferred to [place]. During my interview, pt and family do have some concerns. Say that her appetite is absent. Thrush in mouth. Difficulty swallowing. Abd pain and diarrhea as noted above. Skin breakdown on sacrum. Past medical, surgical, social, and family histories reviewed and updated as below. Past Med Surg Social Fam HX - Past Medical History Medical history: arthritis, atrial fibrillation, CHF, COPD, coronary artery disease, DVT, diabetes, hyperlipidemia, hypertension, myocardial infarction, renal disease, thyroid disease Additional medical history: left leg mole, melanoma, removed Psychiatric history: anxiety - Past Surgical History Surgical History: cataract, hysterectomy, knee replacement, orthopedic, other, T AH/BSO Additional surgical history: cardiac stents, cataracts,gall stones removed, right knee - Social History Smoking Status: Never smoker Smokeless Tobacco Status: No Alcohol use: none Drug use: none - Family History Mother Living Status: Hx Family Cardiac Disorders: Yes Father Adopted: No Family Member Ethnicity: Non- Living Status: Hx Family Cardiac Disorders: Yes (unknown type but of cardiac disease) Hx Family Respiratory Disorders: No Hx Family Cancer: No Hx Family GI Disorders: No Hx Family Endocrine Disorder: Yes Hx Family Neuromuscular Disorders: No Hx Family Neurologic Disorders: No Hx Family HEENT Disorders: No Hx Family Autoimmune Disorders: No Internal Medicine - H&P: Meds Levothyroxine [Synthroid] 88 mcg PO QAM 01/22/16 [History] hydrALAZINE [HydrALAZINE] 25 mg PO QID 01/22/16 [History] Amiodarone [Cordarone] 200 mg PO QAM 03/25/16 [History] Docusate [Colace] 100 mg PO BID 03/25/16 [History] Albuterol Sulfate [Ventolin Hfa] 1 - 2 puff IH Q4H PRN 06/13/16 [History] Allopurinol [Zyloprim 100 MG] 100 mg PO QAM 03/19/18 [History] Atorvastatin [Lipitor] 10 mg PO QAM 03/19/18 [History] Carvedilol 3.125 mg PO BID #60 tab 03/19/18 [Rx] Cholecalciferol (Vitamin D3) [Vitamin D3] 2,000 unit PO QAM 03/19/18 [History] Hydralazine HCl 50 mg PO QID 08/25/18 [History] Insulin DETEMIR [Levemir] 12 unit SQ HS 08/25/18 [History] Insulin DETEMIR [Levemir] 20 unit SQ QAM 08/25/18 [History] Isosorbide MONOnitrate (24 HR) [Imdur] 60 mg PO QAM 08/25/18 [History] Loperamide HCl [Imodium A-D] 2 mg PO Q4H PRN 08/25/18 [History] Promethazine [Phenergan] 25 mg PO Q6HR PRN 08/25/18 [History] Saliva Stimulant [Biotene Moisturizing Rinse] 0 ml MM AD PRN 08/25/18 [History] Sennosides [Senna] 17.2 mg PO BID 08/25/18 [History] Acetaminophen [Tylenol] 650 mg PO Q6HR PRN 10/17/18 [History] Aspirin 81 mg PO QAM 10/17/18 [History] NIFEdipine [Nifedipine ER] 60 mg PO QAM 10/17/18 [History] Polyethylene Glycol 3350 [Natura-Lax] 17 gm PO QAM 10/17/18 [History] Furosemide [Lasix] 40 mg PO QAM 02/25/19 [History] Ferrous Sulfate 325 mg PO BIDWM 30 Days #60 tablet 03/04/19 [Rx] Allergy/AdvReac Type Severity Reaction Status Date / Time Cyclobenzaprine Allergy Dizziness Verified 02/25/19 21:54 [From Flexeril] simvastatin AdvReac Muscle Pain Verified 02/25/19 21:54 All Systems PM: A 10-system review of systems was performed and is negative for pertinent findings except as documented above in the HPI. - Constitutional Vitals: Temp Pulse Resp BP Pulse Ox 98.1 F 60 15 157/69 95 03/09/19 06:52 03/09/19 06:52 03/09/19 06:52 03/09/19 06:52 03/09/19 06:52 Exam: General: NAD, good eye contact, elderly and frail appearing Head: Atraumatic, normocephalic. Face symmetric Eyes: EOMI, sclerae anicteric ENT: Mucous membranes moist. Oral mucosa with whitish plaques. Trachea midline. Thoracic: No visible chest wall deformities. Bibasilar blunted breath sounds Cardio: Normal S1 and S2, regular rate and rhythm, no murmurs. Abdomen: Soft, nontender, nondistended. Bowel sounds present. No rebound Extremities: Warm, well perfused. DP pulses 2+ b/l. No clubbing, cyanosis. Does have mild pitting edema b/l legs Skin: Mild irritation of sacral skin Neuro: Awake, fully oriented. Good memory, concentration, attention. Speech fluent. CN II-XII grossly intact. Strength 5/5 in b/l UE and LE Internal Med - H&P Results - Labs CBC & Chem 7: 03/09/19 09:56 03/09/19 09:56 - Summary of Assessment and Plan Summary of Assessment and Plan: Juanita Peng is an 83 F w hx HFpEF, HTN, A-Fib not on AC, DM2, CKD4, hypothyroidism, recent admission for PNA and CHF and cholecystectomy, who p/w abd pain and diarrhea, found to have leukocytosis, CT showing colonic wall thickening and surrounding edema, concerning for colitis. Colitis: ?stercoral given no BMs for last 2 weeks despite laxatives - molecular enteric panel - Zosyn, anticipate end date 03/18, consider switch to PO augmentin or cipro/flagyl when symptoms improve Oral candidiasis: - nystatin swish and swallow HFpEF: mild pedal edema and pleural effusions but no crackles, is making urine - continue home lasix 40 daily and monitor weight/UOP - consider neph consult if continues with or has progression from her mild hypervolemic state at present CKD4: baseline Cr ~3 noted, monitor renal function daily Poor appetite: multifactorial, contributors include oral thrush, colitis, concern for fluid overload and gut edema - nutrition consult Skin breakdown: woundRN consult HTN: home coreg 3 bid, nifedipine 60, hydral 75 qid, imdur 60 A-Fib: not on AC, rate on coreg 3 bid, rhythm on amio 200 daily DM2: home basal 20/12 bid, +SSI Hypothyroidism: home synthroid PPx: SCDs Tele: no Activity: up w assist FEN: cardiac ADA, no MIVF Lines: PIV Consults: speech, wound, nutrition, SW, PT/OT Code: Full Dispo: obs for abd pain and colitis, anticipate 2-3 days, will return to SNF
[2019-03-09] MEDS: Acetaminophen 325 MG TABLET PO PRN (09:34)
[2019-03-09] MEDS: Ondansetron 4 MG/2 ML VIAL IVP PRN (09:38)
[2019-03-09 10:15] LABS: Hematocrit 27.4 % (35.3-44.9); Hemoglobin 8.8 g/dL (11.5-15.4); Mean Corpuscular HGB Conc 32.1 g/dL (31.6-35.5); Mean Corpuscular Hemoglobin 34.4 pg (28.0-33.3); Mean Platelet Volume 11.3 fL (9.4-12.4); Platelet Count 242 K/mcL (140-400); Red Blood Count 2.56 M/mcL (3.82-4.97); Red Cell Distribution Width 15.1 % (11.5-14.5); White Blood Count 13.9 K/mcL (4.3-11.1)
[2019-03-09 10:23] LABS: Prothrombin Time 11.1 Seconds (9.4-12.1)
[2019-03-09 10:36] LABS: Albumin 3.7 g/dL (3.5-5.7); Albumin/Globulin Ratio 1.8 (1.1-2.2); Bilirubin,Direct 0.2 mg/dL (0.0-0.2); Bilirubin,Indirect 0.6 mg/dL (0.0-1.2); Bilirubin,Total 0.8 mg/dL (0.3-1.0); Calcium 9.9 mg/dL (8.6-10.3); Globulin 2.1 g/dL (2.4-3.5); Phosphorous 2.9 mg/dL (2.7-4.5); Potassium 4.1 mEq/L (3.5-5.1); Total Protein 5.8 g/dL (6.4-8.9)
[2019-03-09] MEDS ORDERED: Piperacillin/Tazobactam 3.375 GM in 0.9 % Sodium Chloride Mini Bag 100 ML IVPB ONE (10:42)
[2019-03-09] MEDS: Furosemide 40 MG TABLET PO SCH (12:40)
[2019-03-09] MEDS: Aspirin 81 MG TAB.CHEW PO SCH (12:40)
[2019-03-09] MEDS: Nystatin SUSP 5 ML UD.LIQ PO SCH ×4 (12:40→22:04)
[2019-03-09] MEDS: *HR* Amiodarone 200 MG TABLET PO SCH (12:40)
[2019-03-09] MEDS: hydrALAZINE 25 MG TABLET PO SCH ×3 (12:40→22:02)
[2019-03-09] MEDS: Isosorbide MONOnitrate (24 HR) 60 MG TAB.ER.24H PO SCH (12:40)
[2019-03-09] MEDS: Insulin DETEMIR 100 UNIT/ML X5UNITS SQ SCH ×2 (12:41→22:04)
[2019-03-09] MEDS: NIFEdipine XL (24 HR) 60 MG TAB.ER.24 PO SCH (12:46)
[2019-03-09] MEDS ORDERED: HYDRALAZINE HCL 50 MG PO SCH (13:00)
[2019-03-09] MEDS ORDERED: Dextrose Gel 15 GM/37.5 ML TUBE PO PRN ×2 (23:44)
[2019-03-10] MEDS: Piperacillin/Tazobactam 3.375 GM in 0.9 % Sodium Chloride Mini Bag 100 ML IVPB SCH ×2 (02:51→14:07)
[2019-03-10] MEDS: D5% in Water 1,000 ML IVC PRN (03:03)
[2019-03-10 05:03] LABS: Hematocrit 24.7 % (35.3-44.9); Hemoglobin 7.9 g/dL (11.5-15.4); Mean Corpuscular Hemoglobin 34.3 pg (28.0-33.3); Mean Corpuscular Volume 107.4 fL (83.0-100.0); Mean Platelet Volume 11.2 fL (9.4-12.4); Platelet Count 204 K/mcL (140-400); Red Cell Distribution Width 15.2 % (11.5-14.5); White Blood Count 8.9 K/mcL (4.3-11.1)
[2019-03-10 05:16] LABS: Calcium 9.2 mg/dL (8.6-10.3); Magnesium 2.8 mg/dL (1.6-2.6); Potassium 3.9 mEq/L (3.5-5.1)
[2019-03-10] MEDS: hydrALAZINE 25 MG TABLET PO SCH ×3 (11:21→18:16)
[2019-03-10] MEDS: Nystatin SUSP 5 ML UD.LIQ PO SCH ×2 (11:21→14:07)
[2019-03-10] MEDS: NIFEdipine XL (24 HR) 60 MG TAB.ER.24 PO SCH (11:27)
[2019-03-10] MEDS: Aspirin 81 MG TAB.CHEW PO SCH (11:27)
[2019-03-10] MEDS: Furosemide 40 MG TABLET PO SCH (11:27)
[2019-03-10] MEDS: Isosorbide MONOnitrate (24 HR) 60 MG TAB.ER.24H PO SCH (11:27)
[2019-03-10] MEDS: *HR* Amiodarone 200 MG TABLET PO SCH (11:27)
[2019-03-10] MEDS: Insulin DETEMIR 100 UNIT/ML X5UNITS SQ SCH (11:53)
--- NOTE | 2019-03-10 14:34 | Internal Med Progress Note ---
Hospitalist Progress Note - Encounter Date of Encounter: 03/10/19 Time of Encounter: 14:31 - Subjective Interval History: Had formed bowel movement yesterday so stool sample could not be collected. Still having abdominal pain today. - Exam Vitals: Temp Pulse Resp BP Pulse Ox 97.7 F 57 17 145/65 96 03/10/19 11:12 03/10/19 11:12 03/10/19 11:12 03/10/19 11:12 03/10/19 11:12 Exam: General: Ill-appearing and in no acute distress HEENT: No erythema of posterior pharynx. No exudates. Lymphatics: No mandibular or cervical lymphadenopathy Cardiovascular: RRR. No murmurs. No chest wall tenderness. Lungs: Clear to auscelltation bilaterally. Regular chest rise. Abdomen: LLQ tenderness. No rebound or gaurding. Nl bowel sounds. Extremities: No edema. 2+ pulses radial and pedal pulses Skin: No rahses, abrasions, or contusions. Nl cap refill. Psych: Nl attention. A&Ox3 Neuro: television mechanic II-XII intact. 5/5 strength. Sensation to light touch and pinprick intact. - Assessment and Plan (1) Colitis Current Visit: Yes Status: Acute Assessment and Plan: Patient with history of recent admission in which she underwent a laparoscopic cholecystectomy for choledocholithiasis complicated by post-op constipation after surgery presents with left lower quadrant pain and loose stools in the setting of stable vitals, left lower quadrant abdominal tenderness on physical exam, leukocytosis, and CT with evidence of stool burden with concern for colitis distal perirectal segments of colon. -Concern for stercoral colitis given evidence of colitis in the setting of significant stool burden Patient clinically stable, however, given recent surgery and high mortality with stercoral colitis will consult general surgery -Also concern for infectious colitis (C diff) but stool has been formed since admission so unable to get stool sample -Will also obtain lactate to eval for ischemia PLAN: - General surgery consult - Zosyn - Lactate - Will consider empiric Vancomycin for C diff if worsens, however, no diarrhea currently so low suspicion for this (2) History of recent surgery Current Visit: Yes Status: Acute Assessment and Plan: Recent admission in which she underwent a laparoscopic cholecystectomy for choledocholithiasis (3) CKD (chronic kidney disease), stage IV Current Visit: Yes Status: Chronic Assessment and Plan: Currently appears to be at baseline. Appears to be slightly hypervolemic, however, given severe CTV will not push for more diuresis. - Home lasix 40mg qd (4) Thrush Current Visit: Yes Status: Acute Assessment and Plan: Will switch patient from nystatin to fluconazole given superior therapy. DVT Prophylaxis: heparin Internal Medicine: Result - Labs CBC & Chem 7: 03/10/19 04:53 03/10/19 04:53 Labs: Short CBC 03/10/19 Range/Units 04:53 WBC 8.9 (4.3-11.1) K/mcL Hgb 7.9 L (11.5-15.4) g/dL Hct 24.7 L (35.3-44.9) % Plt Count 204 (140-400) K/mcL BMP 03/10/19 04:53 Sodium 139 Potassium 3.9 Chloride 102 Carbon Dioxide 29 BUN 63 H Creatinine 3.04 H Glucose 72 Calcium 9.2 - ABG Interpretation ABG results: PT/INR, D-dimer PT 11.1 Seconds (9.4-12.1) 03/09/19 09:56 - Impressions Impressions Chest X-Ray 03/10/19 10:42 IMPRESSION: Progressing edema and small effusions. D/ / 03/10/2019 14:10:58 Gurpreet May MD / son Interpreting Provider: Gurpreet May MD KUB X-Ray 03/10/19 10:48 IMPRESSION: Large amount of colonic stool burden. Bowel gas pattern is nonspecific and nonobstructive. Severe degenerative changes of the right hip, with [id number] articulation. D/ / 03/10/2019 14:16:01 Kendall Caruso MD / son Interpreting Provider: Kendall Caruso MD Consult Discharge Plan - Plan Referrals: NONE,PCP [Primary Care Provider] -
[2019-03-10] MEDS: Fluconazole 40 MG/ML UDC PO SCH (16:16)
[2019-03-10] MEDS: *HR* Heparin 5,000 UNIT/ML VIAL SQ SCH (18:16)
--- NOTE | 2019-03-10 19:32 | AcuteCare Surgery Consult Note ---
Date of Encounter: 03/10/19 Time of Encounter: 19:30 Assessment and Plan (1) Colitis Current Visit: Yes Status: Acute Concern for stercoral colitis. Recommend colonoscopy. Indications for colonoscopy are discussed in detail. Procedure, risk and benefits of colonscopy are discussed. Pt understands risks and possible complications. Possible complications include but, are not limited to bleeding, infection or perforation. Pt understands and wishes to proceed as recommended. Consent is obtained. Inpatient colonoscopy is scheduled. Prep today and scope tomorrow. (2) Insulin dependent diabetes mellitus Current Visit: No Status: Chronic (3) CKD (chronic kidney disease) stage 3, GFR 30-59 ml/min Current Visit: No Status: Chronic (4) Essential hypertension Current Visit: No Status: Chronic (5) Physical deconditioning Current Visit: No Status: Chronic History of Present Illness Consult date: 03/10/19 Reason for consult: other (constipation) Requesting physician: Zeke Rodriguez History of present illness: Pt presents to [facility] from [facility] c/o new onset lower abdominal pain. She has had chronic upper abdominal pain that has recently resolved since lap igor a couple of weeks ago. She has a known hx of severe and chronic constipation. She did have her first BM yesterday, which was quite loose, and then today has had three subsequent small episodes diarrhea. She went to [facility] yesterday, where a CT scan showed all stable findings as mentioned above but also colon wall thickening and edema suggestive of colitis associated with heavy stool burden and concern for stercoral colitis. s/p Lap igor recently. Past Med Surg Social Fam HX - Past Medical History Medical history: arthritis, atrial fibrillation, CHF, COPD, coronary artery disease, DVT, diabetes, hyperlipidemia, hypertension, myocardial infarction, renal disease, thyroid disease Additional medical history: left leg mole, melanoma, removed Psychiatric history: anxiety - Past Surgical History Surgical History: cataract, hysterectomy, knee replacement, orthopedic, other, RAYMOND/BSO Additional surgical history: cardiac stents, cataracts,gall stones removed, right knee - Social History Smoking Status: Never smoker Smokeless Tobacco Status: No Alcohol use: none Drug use: none - Family History Mother Living Status: Hx Family Cardiac Disorders: Yes Father Adopted: No Family Member Ethnicity: Non- Living Status: Hx Family Cardiac Disorders: Yes (unknown type but of cardiac disease) Hx Family Respiratory Disorders: No Hx Family Cancer: No Hx Family GI Disorders: No Hx Family Endocrine Disorder: Yes Hx Family Neuromuscular Disorders: No Hx Family Neurologic Disorders: No Hx Family HEENT Disorders: No Hx Family Autoimmune Disorders: No Medications and Allergies Levothyroxine [Synthroid] 88 mcg PO QAM 01/22/16 [History] hydrALAZINE [HydrALAZINE] 25 mg PO QID 01/22/16 [History] Amiodarone [Cordarone] 200 mg PO QAM 03/25/16 [History] Docusate [Colace] 100 mg PO BID 03/25/16 [History] Albuterol Sulfate [Ventolin Hfa] 1 - 2 puff IH Q4H PRN 06/13/16 [History] Allopurinol [Zyloprim 100 MG] 100 mg PO QAM 03/19/18 [History] Atorvastatin [Lipitor] 10 mg PO QAM 03/19/18 [History] Carvedilol 3.125 mg PO BID #60 tab 03/19/18 [Rx] Cholecalciferol (Vitamin D3) [Vitamin D3] 2,000 unit PO QAM 03/19/18 [History] Hydralazine HCl 50 mg PO QID 08/25/18 [History] Insulin DETEMIR [Levemir] 12 unit SQ HS 08/25/18 [History] Insulin DETEMIR [Levemir] 20 unit SQ QAM 08/25/18 [History] Isosorbide MONOnitrate (24 HR) [Imdur] 60 mg PO QAM 08/25/18 [History] Loperamide HCl [Imodium A-D] 2 mg PO Q4H PRN 08/25/18 [History] Promethazine [Phenergan] 25 mg PO Q6HR PRN 08/25/18 [History] Saliva Stimulant [Biotene Moisturizing Rinse] 0 ml MM AD PRN 08/25/18 [History] Sennosides [Senna] 17.2 mg PO BID 08/25/18 [History] Acetaminophen [Tylenol] 650 mg PO Q6HR PRN 10/17/18 [History] Aspirin 81 mg PO QAM 10/17/18 [History] NIFEdipine [Nifedipine ER] 60 mg PO QAM 10/17/18 [History] Polyethylene Glycol 3350 [Natura-Lax] 17 gm PO QAM 10/17/18 [History] Furosemide [Lasix] 40 mg PO QAM 02/25/19 [History] HYDROcodone/Acet 5/325 mg [[place] 5-325 mg] 1 tab PO Q6H PRN 03/09/19 [History] Ondansetron HCl [Zofran] 4 mg PO Q6H PRN 03/09/19 [History] Pyridoxine HCl [Vitamin B-6] 50 mg PO QAM 03/09/19 [History] Allergy/AdvReac Type Severity Reaction Status Date / Time Cyclobenzaprine Allergy Dizziness Verified 02/25/19 21:54 [From Flexeril] simvastatin AdvReac Muscle Pain Verified 02/25/19 21:54 Review of Systems All systems PM: The remainder of the systems were reviewed and are negative - Constitutional fatigue, weakness, no anorexia, no chills, no fever(s), no night sweats - EENT Nose, mouth and throat: no dizziness, no dysphagia, no nasal congestion, no reji al discharge, no sinus pain, no sinus pressure, no sore throat - Cardiovascular no chest pain, no diaphoresis, no dyspnea, no edema - Respiratory no cough, no dyspnea, no wheezing - Gastrointestinal abdominal pain, belching, bloating, constipation, diarrhea, no nausea, no vomiting - Genitourinary Genitourinary: no dysuria, no flank pain, no urinary frequency - Musculoskeletal back pain, limited range of motion, no joint swelling, no neck pain - Integumentary no dry skin, no pruritus, no rash, no wounds, no jaundice - Neurological weakness, no confusion, no dizziness, no focal weakness - Psychiatric anxiety, depression - Hematologic/Lymphatic no easy bleeding, no easy bruising General Surgery Exam Initial Vital Signs Temp Pulse Resp BP Pulse Ox 98.1 F 60 15 157/69 95 03/09/19 06:52 03/09/19 06:52 03/09/19 06:52 03/09/19 06:52 03/09/19 06:52 - General physical appearance moderate distress, moderate pain. negative: jaundice - Eyes PERRL, normal ocular movement. negative: icteric - ENT no congestion, dry mucosa. negative: nasal discharge - Neck no masses, trachea midline, no lymphadectomy, no venous distension - Respiratory normal respiratory effort, clear to auscultation - Cardiovascular Cardiovascular exam: Present: RRR. Absent: JVD - Abdomen Abdomen general surgery: Present: bowel sounds present, soft, distended, tender. Absent: guarding, rebound Abdominal Tenderness: Present: diffusely - Genitourinary Present: normal external genitalia - Neurologic Present: CN 2-12 grossly intact, normal coordination - Musculoskeletal Present: normal posture - Psychiatric Psychiatric general surgery: Present: A&Ox3, appropriate Exam Initial Vital Signs Temp Pulse Resp BP Pulse Ox 98.1 F 60 15 157/69 95 03/09/19 06:52 03/09/19 06:52 03/09/19 06:52 03/09/19 06:52 03/09/19 06:52 Results - Labs 03/10/19 04:53 03/10/19 04:53 Abnormal lab results WBC 13.9 K/mcL (4.3-11.1) H 03/09/19 09:56 RBC 2.30 M/mcL (3.82-4.97) L 03/10/19 04:53 Hgb 7.9 g/dL (11.5-15.4) L 03/10/19 04:53 Hct 24.7 % (35.3-44.9) L 03/10/19 04:53 MCV 107.4 fL (83.0-100.0) H 03/10/19 04:53 MCH 34.3 pg (28.0-33.3) H 03/10/19 04:53 RDW 15.2 % (11.5-14.5) H 03/10/19 04:53 BUN 63 mg/dL (8-23) H 03/10/19 04:53 Creatinine 3.04 mg/dL (0.60-1.20) H 03/10/19 04:53 Est GFR ( Amer) 18 (> 60) L 03/10/19 04:53 Est GFR (Non-Af Amer) 15 (> 60) L 03/10/19 04:53 Glucose 128 mg/dL (70-105) H 03/09/19 09:56 POC Glucose 166 mg/dL (70-99) H 03/09/19 16:18 Calculated Osmolality 305 (280-300) H 03/10/19 04:53 Magnesium 2.8 mg/dL (1.6-2.6) H 03/10/19 04:53 Serum Total Protein 5.8 g/dL (6.4-8.9) L 03/09/19 09:56 Globulin 2.1 g/dL (2.4-3.5) L 03/09/19 09:56 Prealbumin 15.5 mg/dL (17.0-34.0) L 03/09/19 09:56 Diabetes panel 03/10/19 Range/Units 04:53 Sodium 139 (136-145) mEq/L Potassium 3.9 (3.5-5.1) mEq/L Chloride 102 (98-107) mEq/L Carbon Dioxide 29 (23-29) mEq/L BUN 63 H (8-23) mg/dL Creatinine 3.04 H (0.60-1.20) mg/dL Glucose 72 (70-105) mg/dL Calcium 9.2 (8.6-10.3) mg/dL Calcium panel 03/10/19 Range/Units 04:53 Calcium 9.2 (8.6-10.3) mg/dL Pituitary panel 03/10/19 Range/Units 04:53 Sodium 139 (136-145) mEq/L Potassium 3.9 (3.5-5.1) mEq/L Chloride 102 (98-107) mEq/L Carbon Dioxide 29 (23-29) mEq/L BUN 63 H (8-23) mg/dL Creatinine 3.04 H (0.60-1.20) mg/dL Glucose 72 (70-105) mg/dL Calcium 9.2 (8.6-10.3) mg/dL Adrenal panel 03/10/19 Range/Units 04:53 Sodium 139 (136-145) mEq/L Potassium 3.9 (3.5-5.1) mEq/L Chloride 102 (98-107) mEq/L Carbon Dioxide 29 (23-29) mEq/L BUN 63 H (8-23) mg/dL Creatinine 3.04 H (0.60-1.20) mg/dL Glucose 72 (70-105) mg/dL Calcium 9.2 (8.6-10.3) mg/dL All other labs normal. - Imaging CT scan - abdomen: report reviewed (some findings c/w colitis) CT scan - pelvis: report reviewed Consult Discharge Plan - Plan Referrals: NONE,PCP [Primary Care Provider] -
[2019-03-10] MEDS ORDERED: Milk and Molasses Enema 200 ML RC ONE (19:38)
[2019-03-11] MEDS: Insulin DETEMIR 100 UNIT/ML X5UNITS SQ SCH ×2 (00:03→10:11)
[2019-03-11] MEDS: Piperacillin/Tazobactam 3.375 GM in 0.9 % Sodium Chloride Mini Bag 100 ML IVPB SCH ×2 (00:53→12:40)
[2019-03-11] MEDS: hydrALAZINE 25 MG TABLET PO SCH ×3 (00:54→21:08)
[2019-03-11 04:37] LABS: Hematocrit 26.8 % (35.3-44.9); Hemoglobin 8.6 g/dL (11.5-15.4); Mean Corpuscular HGB Conc 32.1 g/dL (31.6-35.5); Mean Corpuscular Hemoglobin 34.8 pg (28.0-33.3); Mean Corpuscular Volume 108.5 fL (83.0-100.0); Mean Platelet Volume 10.7 fL (9.4-12.4); Platelet Count 226 K/mcL (140-400); Red Blood Count 2.47 M/mcL (3.82-4.97); Red Cell Distribution Width 15.1 % (11.5-14.5); White Blood Count 7.8 K/mcL (4.3-11.1)
[2019-03-11 04:56] LABS: Calcium 9.3 mg/dL (8.6-10.3); Magnesium 2.7 mg/dL (1.6-2.6); Potassium 4.1 mEq/L (3.5-5.1)
[2019-03-11] MEDS: *HR* Heparin 5,000 UNIT/ML VIAL SQ SCH ×2 (07:47→18:46)
--- NOTE | 2019-03-11 09:15 | AcuteCareSurgery Progress Note ---
Date of Encounter: 03/11/19 Time of Encounter: 08:00 - Assessment and Plan (1) Colitis Current Visit: Yes Status: Acute The patient has abnormal CAT scan of the abdomen suggesting colitis area and certainly there is abnormal colon wall. Colonoscopy will be required. The patient has chronic constipation. The patient did not finish her bowel prep yesterday and has inadequate prep for colonoscopy. I recommended that she complete her bowel prep with additional bowel cleanout this afternoon. We will try again tomorrow for colonoscopy and this depends on her ability to adequately prep the colon for visualization Subjective Narrative: The patient is seen and evaluated on morning rounds with the acute care surgery team. The patient did not complete her bowel prep. She has only had 1 bowel movement and this was solid. This is completely inadequate. She will need to finish her bowel prep today with additional bowel prep this afternoon. She needs to finish her bowel prep and then have additional magnesium citrate. We will try to reschedule her for tomorrow. Objective Vital Signs - Last 8 Hours Temp Pulse Resp BP Pulse Ox 03/11/19 07:16 98.5 F 57 16 125/67 92 03/11/19 03:38 98.3 F 56 15 149/70 93 Intake and Output 03/10/19 03/11/19 03/11/19 23:59 07:59 15:59 Intake Total 220 / 1360 Balance 220 / 1360 Intake: IV Fluids 100 / 1000 Zosyn 3.375 GM In 0.9 % Sodium 100 / 200 Chloride (Mini-Bag +) 100 ML @ 25 mls/hr IVPB Q12H [facility] Rx#: [id number] Oral 120 / 360 Other: Percent of Meal Consumed 100% Stool Size Large Small Stool Consistency soft liquid Stool Color Brown Brown # Voids 1 # Urine Diapers 1 # Bowel Movements 1 Weight 86.6 kg Blood Glucose* 182 225 Patient Weight 03/11/19 23:59 Weight 86.6 kg - General physical appearance well developed, well nourished, chronically ill - Respiratory normal respiratory effort, clear to auscultation - Cardiovascular Cardiovascular exam: Present: RRR, no murmurs/rubs/gallops - Abdomen Abdomen: Present: bowel sounds present, soft, non tender - Incision Incision: Present: clean and dry - Neurologic CN 2-12 grossly intact - Psychiatric oriented to time, oriented to person, oriented to place, speech is normal, memory intact - Labs 03/11/19 04:16 03/11/19 04:16 Diabetes panel 03/11/19 Range/Units 04:16 Sodium 139 (136-145) mEq/L Potassium 4.1 (3.5-5.1) mEq/L Chloride 97 L (98-107) mEq/L Carbon Dioxide 31 H (23-29) mEq/L BUN 54 H (8-23) mg/dL Creatinine 3.11 H (0.60-1.20) mg/dL Glucose 232 H (70-105) mg/dL Calcium 9.3 (8.6-10.3) mg/dL Calcium panel 03/11/19 Range/Units 04:16 Calcium 9.3 (8.6-10.3) mg/dL Pituitary panel 03/11/19 Range/Units 04:16 Sodium 139 (136-145) mEq/L Potassium 4.1 (3.5-5.1) mEq/L Chloride 97 L (98-107) mEq/L Carbon Dioxide 31 H (23-29) mEq/L BUN 54 H (8-23) mg/dL Creatinine 3.11 H (0.60-1.20) mg/dL Glucose 232 H (70-105) mg/dL Calcium 9.3 (8.6-10.3) mg/dL Adrenal panel 03/11/19 Range/Units 04:16 Sodium 139 (136-145) mEq/L Potassium 4.1 (3.5-5.1) mEq/L Chloride 97 L (98-107) mEq/L Carbon Dioxide 31 H (23-29) mEq/L BUN 54 H (8-23) mg/dL Creatinine 3.11 H (0.60-1.20) mg/dL Glucose 232 H (70-105) mg/dL Calcium 9.3 (8.6-10.3) mg/dL Consult Discharge Plan - Plan Referrals: NONE,PCP [Primary Care Provider] -
[2019-03-11] MEDS: *HR* Amiodarone 200 MG TABLET PO SCH (09:53)
[2019-03-11] MEDS: Isosorbide MONOnitrate (24 HR) 60 MG TAB.ER.24H PO SCH (09:53)
[2019-03-11] MEDS: NIFEdipine XL (24 HR) 60 MG TAB.ER.24 PO SCH (09:53)
[2019-03-11] MEDS: Aspirin 81 MG TAB.CHEW PO SCH (09:53)
[2019-03-11] MEDS: Furosemide 40 MG TABLET PO SCH (09:53)
[2019-03-11] MEDS: Fluconazole 40 MG/ML UDC PO SCH (10:11)
--- NOTE | 2019-03-11 10:27 | Internal Med Progress Note ---
Hospitalist Progress Note - Encounter Date of Encounter: 03/11/19 Time of Encounter: 10:25 - Subjective Interval History: Has had a few small bowel movements but not enough to undergo colonoscopy today. Feeling better than yesterday with regards to abdominal pain. - Exam Vitals: Temp Pulse Resp BP Pulse Ox 98.5 F 57 16 125/67 92 03/11/19 07:16 03/11/19 07:16 03/11/19 07:16 03/11/19 07:16 03/11/19 07:16 Exam: General: Ill-appearing and in no acute distress HEENT: No erythema of posterior pharynx. No exudates. Lymphatics: No mandibular or cervical lymphadenopathy Cardiovascular: RRR. No murmurs. No chest wall tenderness. Lungs: Clear to auscelltation bilaterally. Regular chest rise. Abdomen: LLQ tenderness. No rebound or gaurding. Nl bowel sounds. Extremities: No edema. 2+ pulses radial and pedal pulses Skin: No rahses, abrasions, or contusions. Nl cap refill. Psych: Nl attention. A&Ox3 Neuro: batch room technician II-XII intact. 5/5 strength. Sensation to light touch and pinprick intact. - Assessment and Plan (1) Colitis Current Visit: Yes Status: Acute Assessment and Plan: Patient with history of recent admission in which she underwent a laparoscopic cholecystectomy for choledocholithiasis complicated by post-op constipation after surgery presents with left lower quadrant pain and loose stools in the setting of stable vitals, left lower quadrant abdominal tenderness on physical exam, leukocytosis, and CT with evidence of stool burden with concern for colitis distal perirectal segments of colon. -Concern for stercoral colitis given evidence of colitis in the setting of significant stool burden Patient clinically stable, however, given recent surgery and high mortality with stercoral colitis will consult general surgery Gen. surgery recommending colonoscopy. Patient unable to complete enough bowel prep yesterday so we will plan to prep today with colonoscopy tomorrow PLAN: - Bowel prep - Colonoscopy tomorrow - Zosyn - Will consider empiric Vancomycin for C diff if worsens, however, no diarrhea currently so low suspicion for this (2) History of recent surgery Current Visit: Yes Status: Acute Assessment and Plan: Recent admission in which she underwent a laparoscopic cholecystectomy for choledocholithiasis (3) CKD (chronic kidney disease), stage IV Current Visit: Yes Status: Chronic Assessment and Plan: Currently appears to be at baseline. Appears to be slightly hypervolemic, however, given severe CTV will not push for more diuresis. - Home lasix 40mg qd (4) Thrush Current Visit: Yes Status: Acute Assessment and Plan: Will switch patient from nystatin to fluconazole given superior therapy. DVT Prophylaxis: heparin Internal Medicine: Result - Labs CBC & Chem 7: 03/11/19 04:16 03/11/19 04:16 Labs: Short CBC 03/11/19 Range/Units 04:16 WBC 7.8 (4.3-11.1) K/mcL Hgb 8.6 L (11.5-15.4) g/dL Hct 26.8 L (35.3-44.9) % Plt Count 226 (140-400) K/mcL BMP 03/11/19 04:16 Sodium 139 Potassium 4.1 Chloride 97 L Carbon Dioxide 31 H BUN 54 H Creatinine 3.11 H Glucose 232 H Calcium 9.3 - ABG Interpretation ABG results: PT/INR, D-dimer PT 11.1 Seconds (9.4-12.1) 03/09/19 09:56 - Impressions Impressions Chest X-Ray 03/10/19 10:42 IMPRESSION: Progressing edema and small effusions. D/ / 03/10/2019 14:10:58 Gurpreet May MD / son Interpreting Provider: Gurpreet May MD X-Ray 03/10/19 10:48 IMPRESSION: Large amount of colonic stool burden. Bowel gas pattern is nonspecific and nonobstructive. Severe degenerative changes of the right hip, with [id number] articulation. D/ / 03/10/2019 14:16:01 Kendall Caruso MD / son Interpreting Provider: Kendall Caruso MD Consult Discharge Plan - Plan Referrals: NONE,PCP [Primary Care Provider] -
[2019-03-11] MEDS: *HR* Dextrose 50 % in Water (Syg) 50 ML SYRINGE IVP PRN ×2 (20:09→22:31)
[2019-03-11] MEDS: Insulin LISPRO 300 UNITS/3 ML VIAL SQ SCH (20:10)
[2019-03-11] MEDS ORDERED: Simethicone 80 MG TAB.CHEW PO PRN (20:18)
[2019-03-12] MEDS: Piperacillin/Tazobactam 3.375 GM in 0.9 % Sodium Chloride Mini Bag 100 ML IVPB SCH (00:13)
[2019-03-12] MEDS: D5% in Water 1,000 ML IVC PRN (03:53)
[2019-03-12] MEDS: *HR* Heparin 5,000 UNIT/ML VIAL SQ SCH ×2 (04:52→17:43)
--- NOTE | 2019-03-12 05:24 | Event Note ---
Date of Encounter: 03/11/19 Time of Encounter: 19:58 Alerted by patient's nurse ROXANA Melton that the pts. BG was 45 and 47 on recheck. Patient lethargic and diaphoretic. Two calls to Pharmacy for D50 and nurse finally took dextrose from crash cart to administer. Went to see the pt. immediately and family present. Pt. stated she was feeling better. I told her that I would be monitoring her BG closely overnight. She reported she drops quickly. Patient is on bowel prep and currently NPO for colonoscopy planned for Monday. Nurse instructed to check BG Q15MIN and alert me of results. 20:20 BG was 129. 20:59 BG was 107. 21:21 BG 93. Nurse instructed to give 25 ml dextrose if 90 or below. 22:06 BG 91. Nurse instructed to give IVP dextrose. 22:54 BG 155. Nurse instructed to check hourly. 23:01 BG 124. 02:30 BG 113. 03:41 BG 99. Nurse instructed to hang D5 IVPB at 100/hr. 04:50 BG 93. 04:51 BG 100. Nurse instructed to check BG Q30MIN, give me the results, and continue monitoring the pt. very closely and alert me immediately of any adverse changes.
[2019-03-12] MEDS ORDERED: D10% in Water 500 ML IVC SCH (06:15)
[2019-03-12] MEDS ORDERED: *HR* Propofol 200 MG/20 ML VIAL IVP ONE (09:39)
[2019-03-12] MEDS ORDERED: Lidocaine -MPF 2% 2 ML VIAL ONE (09:40)
[2019-03-12] MEDS: Insulin LISPRO 300 UNITS/3 ML VIAL SQ SCH ×4 (09:51→20:35)
[2019-03-12] MEDS: NIFEdipine XL (24 HR) 60 MG TAB.ER.24 PO SCH (09:54)
[2019-03-12] MEDS: *HR* Amiodarone 200 MG TABLET PO SCH (09:55)
[2019-03-12] MEDS: hydrALAZINE 25 MG TABLET PO SCH ×2 (09:55→20:30)
[2019-03-12] MEDS: Furosemide 40 MG TABLET PO SCH (09:55)
[2019-03-12] MEDS: Isosorbide MONOnitrate (24 HR) 60 MG TAB.ER.24H PO SCH (09:55)
[2019-03-12] MEDS: Aspirin 81 MG TAB.CHEW PO SCH (09:55)
[2019-03-12] MEDS ORDERED: *HR* Midazolam HCl 5 MG/5 ML VIAL IVP ONE (09:59)
[2019-03-12] MEDS ORDERED: *HR* FentaNYL (PF) 100 MCG/2 ML VIAL ONE (09:59)
[2019-03-12] MEDS ORDERED: Simethicone 40 MG/0.6 ML MLS IR ONE (10:28)
[2019-03-12] MEDS ORDERED: 0.9 % Sodium Chloride 1,000 ML IVC SCH (10:30)
--- NOTE | 2019-03-12 10:42 | Anesthesia Evaluation PreOp ---
Date of Encounter: 03/12/19 Time of Encounter: 10:40 - Past History Planned Operation: colonoscopy Cardiac History: CHF (preserved EF), HTN, Hyperlipidemia, Arrhythmia (Afib), Cardiac Stent (2016 x 3) Pulmonary History: COPD (2 L oxygen) METHODS EXAMINER History: Denies Any Significant HX Other Medical History: Renal (CKD stage 4), Diabetes Type II, Thyroid (hypo), Other (colitis) Anesthesia History: No Prior Anesthetic Complications, Past Anesthesia : No Alcohol Use: none Drug use: none Medications and Allergies Levothyroxine [Synthroid] 88 mcg PO QAM 01/22/16 [History] hydrALAZINE [HydrALAZINE] 25 mg PO QID 01/22/16 [History] Amiodarone [Cordarone] 200 mg PO QAM 03/25/16 [History] Docusate [Colace] 100 mg PO BID 03/25/16 [History] Albuterol Sulfate [Ventolin Hfa] 1 - 2 puff IH Q4H PRN 06/13/16 [History] Allopurinol [Zyloprim 100 MG] 100 mg PO QAM 03/19/18 [History] Atorvastatin [Lipitor] 10 mg PO QAM 03/19/18 [History] Carvedilol 3.125 mg PO BID #60 tab 03/19/18 [Rx] Cholecalciferol (Vitamin D3) [Vitamin D3] 2,000 unit PO QAM 03/19/18 [History] Hydralazine HCl 50 mg PO QID 08/25/18 [History] Insulin DETEMIR [Levemir] 12 unit SQ HS 08/25/18 [History] Insulin DETEMIR [Levemir] 20 unit SQ QAM 08/25/18 [History] Isosorbide MONOnitrate (24 HR) [Imdur] 60 mg PO QAM 08/25/18 [History] Loperamide HCl [Imodium A-D] 2 mg PO Q4H PRN 08/25/18 [History] Promethazine [Phenergan] 25 mg PO Q6HR PRN 08/25/18 [History] Saliva Stimulant [Biotene Moisturizing Rinse] 0 ml MM AD PRN 08/25/18 [History] Sennosides [Senna] 17.2 mg PO BID 08/25/18 [History] Acetaminophen [Tylenol] 650 mg PO Q6HR PRN 10/17/18 [History] Aspirin 81 mg PO QAM 10/17/18 [History] NIFEdipine [Nifedipine ER] 60 mg PO QAM 10/17/18 [History] Polyethylene Glycol 3350 [Natura-Lax] 17 gm PO QAM 10/17/18 [History] Furosemide [Lasix] 40 mg PO QAM 02/25/19 [History] HYDROcodone/Acet 5/325 mg [[place] 5-325 mg] 1 tab PO Q6H PRN 03/09/19 [History] Ondansetron HCl [Zofran] 4 mg PO Q6H PRN 03/09/19 [History] Pyridoxine HCl [Vitamin B-6] 50 mg PO QAM 03/09/19 [History] Allergy/AdvReac Type Severity Reaction Status Date / Time Cyclobenzaprine Allergy Dizziness Verified 02/25/19 21:54 [From Flexeril] simvastatin AdvReac Muscle Pain Verified 02/25/19 21:54 - Meds/Allergy Pre-op Review Medications Reviewed: Yes Allergies Reviewed: Yes Beta Blockers on Current Med List: Yes (coreg ) If Beta Blockers taken, Date/Time (Last Dose taken): 0954 Anesthesia Results - Labs 03/11/19 04:16 03/11/19 04:16 - Imaging EKG: report reviewed Additional studies: 08/2018 echocardiogram Impressions: LVEF 50-55%. Normal LV chamber size and systolic function. Mild concentric left ventricular hypertrophy. Mild left ventricular diastolic dysfunction. Moderately dilated left atrium. Normal right ventricular structure and function. Mild aortic stenosis. Mild-moderate tricuspid regurgitation. Moderate pulmonary hypertension. Anesthesia Exam Vital Signs/O2 Sat/Glucose, Most Recent Temp Pulse Resp BP Pulse Ox 98.2 F 61 16 134/63 92 03/12/19 10:17 03/12/19 10:25 03/12/19 10:25 03/12/19 10:25 03/12/19 10:25 Blood Glucose* 128 Weight: 86 kg NPO (# of Hours): > 8 hr - HEENT Pupil (Motor): Pupils equal Mallampati: II - METHODS EXAMINER LOC: Oriented - Cardiac Rhythm: Regular Murmur: None - Pulmonary Breath Sounds: bilateral Clear Respiratory Effort: Symmetrical Anesthesia Assess/Plan ASA Score: 4 Level of consciousness: Cooperative, Oriented Anesthetic Plan: MAC Monitoring Plan: Standard Monitors Recovery Plan: PACU
[2019-03-12] MEDS ORDERED: Fluconazole 100 MG TABLET PO SCH (12:00)
--- NOTE | 2019-03-12 12:29 | Internal Med Progress Note ---
Hospitalist Progress Note - Encounter Date of Encounter: 03/12/19 Time of Encounter: 12:28 - Subjective Interval History: Had episodes of hypoglycemia overnight when she is nothing by mouth. Patient underwent colonoscopy this morning with small ulcerations and polyp that was removed. Feeling well this morning without any abdominal pain. - Exam Vitals: Temp Pulse Resp BP Pulse Ox 97.6 F 58 20 117/62 92 03/12/19 11:24 03/12/19 11:24 03/12/19 11:24 03/12/19 11:24 03/12/19 11:24 Exam: General: Ill-appearing and in no acute distress HEENT: No erythema of posterior pharynx. No exudates. Lymphatics: No mandibular or cervical lymphadenopathy Cardiovascular: RRR. No murmurs. No chest wall tenderness. Lungs: Clear to auscelltation bilaterally. Regular chest rise. Abdomen: LLQ tenderness. No rebound or gaurding. Nl bowel sounds. Extremities: No edema. 2+ pulses radial and pedal pulses Skin: No rahses, abrasions, or contusions. Nl cap refill. Psych: Nl attention. A&Ox3 Neuro: medical facilities section director II-XII intact. 5/5 strength. Sensation to light touch and pinprick intact. - Assessment and Plan (1) Colitis Current Visit: Yes Status: Acute Assessment and Plan: Patient with history of recent admission in which she underwent a laparoscopic cholecystectomy for choledocholithiasis complicated by post-op constipation after surgery presents with left lower quadrant pain and loose stools in the setting of stable vitals, left lower quadrant abdominal tenderness on physical exam, leukocytosis, and CT with evidence of stool burden with concern for co litis distal perirectal segments of colon. -Concern for stercoral colitis given evidence of colitis in the setting of significant stool burden Patient clinically stable, however, given recent surgery and high mortality with stercoral colitis will consult general surgery Gen. surgery recommending colonoscopy Colonoscopy completed with small ulcerations and polyp present. Discussed with Dr. Perez - need aggressive bowel regimen going forward PLAN: - Discharge bowel regimen: Metamucil tid w/ meals Miralax bid Milk of mag if not having BM every 48hrs - Will need f/u colonoscopy in 5 years (2) History of recent surgery Current Visit: Yes Status: Acute Assessment and Plan: Recent admission in which she underwent a laparoscopic cholecystectomy for choledocholithiasis (3) CKD (chronic kidney disease), stage IV Current Visit: Yes Status: Chronic Assessment and Plan: Currently appears to be at baseline. Appears to be slightly hypervolemic, however, given severe CKD will not push for more diuresis. - Home lasix 40mg qd (4) Type 2 diabetes mellitus Current Visit: Yes Status: Acute Assessment and Plan: Has had several hypoglycemic episodes this admission when nothing by mouth for bowel prep. Insulin has been discontinued. We will likely need to scale back on insulin dosing for discharge. - Hold insulin for today and monitor - DC patient on decrease insulin dose (5) Thrush Current Visit: Yes Status: Acute Assessment and Plan: Fluconazole started this admission, stop date 03/21 (10 days of therapy) DVT Prophylaxis: heparin Internal Medicine: Result - Labs CBC & Chem 7: 03/11/19 04:16 03/11/19 04:16 - ABG Interpretation ABG results: PT/INR, D-dimer PT 11.1 Seconds (9.4-12.1) 03/09/19 09:56 Consult Discharge Plan - Plan Referrals: NONE,PCP [Primary Care Provider] -
--- NOTE | 2019-03-12 13:28 | Anesthesia Evaluation Post Op ---
Date of Encounter: 03/12/19 Time of Encounter: 13:27 - Vital Signs Vital Signs: Vital Signs/O2 Sat/Glucose, Most Recent Temp Pulse Resp BP Pulse Ox 97.6 F 58 20 117/62 92 03/12/19 11:24 03/12/19 11:24 03/12/19 11:24 03/12/19 11:24 03/12/19 11:24 Blood Glucose* 194 - Lungs Lungs: Clear Ascult./Percussion - Airway Airway: Non-obstructed - Cardiovascular Baseline Rhythm - Mental Status Mental Status: Alert & Oriented, Answers Appropriately - Pain Pain Scale: 0 - Nausea Vomiting Nausea Vomiting: Not Present - Hydration Hydration: NPO - Discharge PostOp Status: Transfer Patient to floor
[2019-03-12] MEDS: Psyllium 1 PACKET POWD.PACK PO SCH ×2 (15:08→20:30)
[2019-03-12] MEDS: Acetaminophen 325 MG TABLET PO PRN (20:30)
[2019-03-13] MEDS: *HR* Heparin 5,000 UNIT/ML VIAL SQ SCH ×2 (06:15→17:19)
[2019-03-13] MEDS ORDERED: E-Z-PAQUE (BARIUM SULF) SUSP 1 BOTTLE PO ONE (08:57)
[2019-03-13] MEDS ORDERED: E-Z-HD (BARIUM SULF) SUSPENSION PO ONE (08:57)
[2019-03-13] MEDS: Insulin LISPRO 300 UNITS/3 ML VIAL SQ SCH ×4 (09:09→21:09)
[2019-03-13] MEDS: hydrALAZINE 25 MG TABLET PO SCH ×2 (09:11→21:18)
[2019-03-13] MEDS: Aspirin 81 MG TAB.CHEW PO SCH (09:13)
[2019-03-13] MEDS: Fluconazole 100 MG TABLET PO SCH (09:13)
[2019-03-13] MEDS: NIFEdipine XL (24 HR) 60 MG TAB.ER.24 PO SCH (09:13)
[2019-03-13] MEDS: Isosorbide MONOnitrate (24 HR) 60 MG TAB.ER.24H PO SCH (09:13)
[2019-03-13] MEDS: *HR* Amiodarone 200 MG TABLET PO SCH (09:13)
[2019-03-13] MEDS: Furosemide 40 MG TABLET PO SCH (09:13)
[2019-03-13] MEDS: Psyllium 1 PACKET POWD.PACK PO SCH ×3 (09:14→21:18)
--- NOTE | 2019-03-13 11:42 | Discharge Summary ---
- NOTES TO OUTPATIENT PROVIDER Notes to Outpatient Provider: Patient was admitted to the hospital with abdominal pain with finding of large amount of colonic stool burden on abdomen x-ray. Colonoscopy was done which revealed one polyp and signs of ischemic colitis likely secondary to constipation. Patient remained asymptomatic at [facility] and she will be discharged on intensive bowel regimen. Orders not resulted at time of discharge: Pending orders 03/12/19 11:07 Surgical Pathology [PTH] Routine Date of Encounter: 03/13/19 Time of Encounter: 10:00 - Discharge Diagnosis (1) CKD (chronic kidney disease), stage IV Priority: Secondary Status: Chronic (2) Colitis Priority: Primary Status: Resolved (3) History of recent surgery Priority: Secondary Status: Acute (4) Thrush Priority: Secondary Status: Resolved (5) Type 2 diabetes mellitus Priority: Secondary Status: Chronic Qualifiers: Diabetes mellitus rat exterminator insulin use: with rat exterminator use Diabetes mellitus complication status: with kidney complications Diabetes mellitus complication detail: with chronic kidney disease Chronic kidney disease stage: stage 4 (severe) Qualified Code(s): E11.22 - Type 2 diabetes mellitus with diabetic chronic kidney disease; N18.4 - Chronic kidney disease, stage 4 (severe); Z79.4 - group home (current) use of insulin (6) CKD (chronic kidney disease), stage IV Priority: Secondary Status: Chronic Hospital course: Ms. Peng is a 83 year old female with recent cholecystectomy who came into the hospital with abdominal pain. She was found to have blood stool burden on her abdominal x-ray. Given her recent surgery, general surgery was consulted and patient had a colonoscopy which revealed one polyp and signs of ischemic colitis and the sigmoid colon. Patient was started on aggressive bowel regimen with significant improvement in her symptoms. Patient is clinically stable, asymptomatic. She will be discharged back to long term to continue physical/occupational therapies. Discharge discussed with: patient - Time Spent with Patient Total time spent providing and/or coordinating discharge services: 32 minutes - Discharge Medications Prescriptions: New Psyllium [Metamucil Fiber Singles Packet] 1 packet PO TID #60 powd.pack Continued Levothyroxine [Synthroid] 88 mcg PO QAM hydrALAZINE [HydrALAZINE] 25 mg PO QID Hydralazine HCl 50 mg PO QID Isosorbide MONOnitrate (24 HR) [Imdur] 60 mg PO QAM Promethazine [Phenergan] 25 mg PO Q6HR PRN PRN Reason: Nausea Saliva Stimulant [Biotene Moisturizing Rinse] 0 ml MM AD PRN PRN Reason: Dry Mouth Insulin DETEMIR [Levemir] 12 unit SQ HS Insulin DETEMIR [Levemir] 20 unit SQ QAM Sennosides [Senna] 17.2 mg PO BID Acetaminophen [Tylenol] 650 mg PO Q6HR PRN PRN Reason: PAIN/FEVER Aspirin 81 mg PO QAM NIFEdipine [Nifedipine ER] 60 mg PO QAM Furosemide [Lasix] 40 mg PO QAM HYDROcodone/Acet 5/325 mg [[place] 5-325 mg] 1 tab PO Q6H PRN PRN Reason: Pain Ondansetron HCl [Zofran] 4 mg PO Q6H PRN PRN Reason: Nausea Pyridoxine HCl [Vitamin B-6] 50 mg PO QAM Docusate [Colace] 100 mg PO BID Amiodarone [Cordarone] 200 mg PO QAM Albuterol Sulfate [Ventolin Hfa] 1 - 2 puff IH Q4H PRN PRN Reason: Shortness Of Breath/Wheezing Allopurinol [Zyloprim 100 MG] 100 mg PO QAM Atorvastatin [Lipitor] 10 mg PO QAM Cholecalciferol (Vitamin D3) [Vitamin D3] 2,000 unit PO QAM Carvedilol 3.125 mg PO BID #60 tab Changed Polyethylene Glycol 3350 [Natura-Lax] 17 gm PO BID #60 powder Discontinued Loperamide HCl [Imodium A-D] 2 mg PO Q4H PRN PRN Reason: Diarrhea Home Medications: Levothyroxine [Synthroid] 88 mcg PO QAM 01/22/16 [History] hydrALAZINE [HydrALAZINE] 25 mg PO QID 01/22/16 [History] Amiodarone [Cordarone] 200 mg PO QAM 03/25/16 [History] Docusate [Colace] 100 mg PO BID 03/25/16 [History] Albuterol Sulfate [Ventolin Hfa] 1 - 2 puff IH Q4H PRN 06/13/16 [History] Allopurinol [Zyloprim 100 MG] 100 mg PO QAM 03/19/18 [History] Atorvastatin [Lipitor] 10 mg PO QAM 03/19/18 [History] Carvedilol 3.125 mg PO BID #60 tab 03/19/18 [Rx] Cholecalciferol (Vitamin D3) [Vitamin D3] 2,000 unit PO QAM 03/19/18 [History] Hydralazine HCl 50 mg PO QID 08/25/18 [History] Insulin DETEMIR [Levemir] 12 unit SQ HS 08/25/18 [History] Insulin DETEMIR [Levemir] 20 unit SQ QAM 08/25/18 [History] Isosorbide MONOnitrate (24 HR) [Imdur] 60 mg PO QAM 08/25/18 [History] Promethazine [Phenergan] 25 mg PO Q6HR PRN 08/25/18 [History] Saliva Stimulant [Biotene Moisturizing Rinse] 0 ml MM AD PRN 08/25/18 [History] Sennosides [Senna] 17.2 mg PO BID 08/25/18 [History] Acetaminophen [Tylenol] 650 mg PO Q6HR PRN 10/17/18 [History] Aspirin 81 mg PO QAM 10/17/18 [History] NIFEdipine [Nifedipine ER] 60 mg PO QAM 10/17/18 [History] Furosemide [Lasix] 40 mg PO QAM 02/25/19 [History] HYDROcodone/Acet 5/325 mg [[place] 5-325 mg] 1 tab PO Q6H PRN 03/09/19 [History] Ondansetron HCl [Zofran] 4 mg PO Q6H PRN 03/09/19 [History] Pyridoxine HCl [Vitamin B-6] 50 mg PO QAM 03/09/19 [History] Polyethylene Glycol 3350 [Natura-Lax] 17 gm PO BID #60 powder 03/13/19 [Rx] Psyllium [Metamucil Fiber Singles Packet] 1 packet PO TID #60 powd.pack 03/13/19 [Rx] Allergies/Adverse Reactions: Allergy/AdvReac Type Severity Reaction Status Date / Time Cyclobenzaprine Allergy Dizziness Verified 02/25/19 21:54 [From Flexeril] simvastatin AdvReac Muscle Pain Verified 02/25/19 21:54 Date of admission: 03/11/19 12:53 Primary care physician: PCP NONE Consults: 03/09/19 08:26 Consult to Occupational Therapy [CONS] Routine Comment: Evaluate, develop and implement POC Reason for Consult: recent discharge to rehab Does patient have active BEDREST order?: No Is patient medically & hemodynamically stable?: Yes Consult to Physical Therapy [CONS] Routine Comment: Evaluate, develop and implement POC Reason for Consult: recent discharge to rehab Does patient have active BEDREST order?: No Is patient medically & hemodynamically stable?: Yes 03/09/19 09:44 Consult to Wound Care [CONS] Routine Reason for Consult: sacral skin breakdown Call Completed: No 03/09/19 09:45 Consult to Nutrition [CONS] Routine Comment: Consulting Provider: NUTRITION Reason for Dietary Consult: PO Supplementation Consult to Service Assistant [CONS] Routine Reason for SW Consult: from SNF - Constitutional Vitals: Temp Pulse Resp BP Pulse Ox 98.4 F 59 16 141/64 97 03/13/19 11:28 03/13/19 11:28 03/13/19 11:28 03/13/19 11:28 03/13/19 11:28 Exam: General: Ill-appearing and in no acute distress HEENT: No erythema of posterior pharynx. No exudates. Lymphatics: No mandibular or cervical lymphadenopathy Cardiovascular: RRR. No murmurs. No chest wall tenderness. Lungs: Clear to auscelltation bilaterally. Regular chest rise. Abdomen: No tenderness. No rebound or gaurding. Nl bowel sounds. Extremities: No edema. 2+ pulses radial and pedal pulses Skin: No rahses, abrasions, or contusions. Nl cap refill. Psych: Nl attention. A&Ox3 Neuro: correctional casework specialist II-XII intact. 5/5 strength. Sensation to light touch and pinprick intact. - Patient Status Disposition: Transfer SNF Condition: Good Functional capacity at discharge: wheelchair bound Overall status at discharge: patient is back to baseline - Discharge Instructions Follow Up With: NONE,PCP [Primary Care Provider] - - Diet and Activity Activity: as per physical therapy Diet: diabetic diet, low salt diet
--- NOTE | 2019-03-13 12:04 | Physician Discharge Referral ---
ExtendedCare Referral Info Transfer To: [facility] Provider in Charge after Transfer: PCP Institutional Level of Care: Skilled - Diagnosis (1) Colitis Priority: Primary Status: Resolved (2) CKD (chronic kidney disease), stage IV Priority: Secondary Status: Chronic (3) History of recent surgery Priority: Secondary Status: Acute (4) Thrush Priority: Secondary Status: Resolved (5) Type 2 diabetes mellitus Priority: Secondary Status: Chronic (6) CKD (chronic kidney disease), stage IV Priority: Secondary Status: Chronic Prognosis: Good - Transfer Medications Prescriptions: Psyllium [Metamucil Fiber Singles Packet] 1 packet PO TID #60 powd.pack Polyethylene Glycol 3350 [Natura-Lax] 17 gm PO BID #60 powder Home Medications: Levothyroxine [Synthroid] 88 mcg PO QAM 01/22/16 [History] hydrALAZINE [HydrALAZINE] 25 mg PO QID 01/22/16 [History] Amiodarone [Cordarone] 200 mg PO QAM 03/25/16 [History] Docusate [Colace] 100 mg PO BID 03/25/16 [History] Albuterol Sulfate [Ventolin Hfa] 1 - 2 puff IH Q4H PRN 06/13/16 [History] Allopurinol [Zyloprim 100 MG] 100 mg PO QAM 03/19/18 [History] Atorvastatin [Lipitor] 10 mg PO QAM 03/19/18 [History] Carvedilol 3.125 mg PO BID #60 tab 03/19/18 [Rx] Cholecalciferol (Vitamin D3) [Vitamin D3] 2,000 unit PO QAM 03/19/18 [History] Hydralazine HCl 50 mg PO QID 08/25/18 [History] Insulin DETEMIR [Levemir] 12 unit SQ HS 08/25/18 [History] Insulin DETEMIR [Levemir] 20 unit SQ QAM 08/25/18 [History] Isosorbide MONOnitrate (24 HR) [Imdur] 60 mg PO QAM 08/25/18 [History] Promethazine [Phenergan] 25 mg PO Q6HR PRN 08/25/18 [History] Saliva Stimulant [Biotene Moisturizing Rinse] 0 ml MM AD PRN 08/25/18 [History] Sennosides [Senna] 17.2 mg PO BID 08/25/18 [History] Acetaminophen [Tylenol] 650 mg PO Q6HR PRN 10/17/18 [History] Aspirin 81 mg PO QAM 10/17/18 [History] NIFEdipine [Nifedipine ER] 60 mg PO QAM 10/17/18 [History] Furosemide [Lasix] 40 mg PO QAM 02/25/19 [History] HYDROcodone/Acet 5/325 mg [[place] 5-325 mg] 1 tab PO Q6H PRN 03/09/19 [History] Ondansetron HCl [Zofran] 4 mg PO Q6H PRN 03/09/19 [History] Pyridoxine HCl [Vitamin B-6] 50 mg PO QAM 03/09/19 [History] Polyethylene Glycol 3350 [Natura-Lax] 17 gm PO BID #60 powder 03/13/19 [Rx] Psyllium [Metamucil Fiber Singles Packet] 1 packet PO TID #60 powd.pack 03/13/19 [Rx] Allergies/Adverse Reactions: Allergy/AdvReac Type Severity Reaction Status Date / Time Cyclobenzaprine Allergy Dizziness Verified 02/25/19 21:54 [From Flexeril] simvastatin AdvReac Muscle Pain Verified 02/25/19 21:54 - Respiratory Orders Oxygen / L per min (2 L PRN) Smoking Cessation: Smoking cessation has been advised. For more information, call the [place] Tobacco Quit Line at 3-648-QWRA-NOW. - Rehabiliation Orders Rehab Potential: Good Rehab Orders: Evaluation for Physical Therapy, Evaluation for Occupational Therapy - Treatments May check for fecal impaction rectally daily PRN - Diet Orders Regular (thin) CERTIFICATION: I certify that the transfer of the above named patient to an Extended Care Facility is necessary for the continuing treatment of the diagnosis listed. The above information is true and accurate reflection of patient's current condition. Confidential - Redisclosure prohibited without a patient's written consent.
--- NOTE | 2019-03-13 14:22 | Internal Med Progress Note ---
Hospitalist Progress Note - Encounter Date of Encounter: 03/13/19 Time of Encounter: 10:20 - Subjective Interval History: No new events overnight. Patient denied any abdominal pain, chest pain, nausea or vomiting. She did not have any bowel movement today however she had multiple yesterday before her colonoscopy. - Exam Vitals: Temp Pulse Resp BP Pulse Ox 98.4 F 59 16 141/64 97 03/13/19 11:28 03/13/19 11:28 03/13/19 11:28 03/13/19 11:28 03/13/19 11:28 Exam: General: Ill-appearing and in no acute distress HEENT: No erythema of posterior pharynx. No exudates. Lymphatics: No mandibular or cervical lymphadenopathy Cardiovascular: RRR. No murmurs. No chest wall tenderness. Lungs: Clear to auscelltation bilaterally. Regular chest rise. Abdomen: No tenderness. No rebound or gaurding. Nl bowel sounds. Extremities: No edema. 2+ pulses radial and pedal pulses Skin: No rahses, abrasions, or contusions. Nl cap refill. Psych: Nl attention. A&Ox3 Neuro: product ambassador II-XII intact. 5/5 strength. Sensation to light touch and pinprick intact. - Assessment and Plan (1) Colitis Current Visit: Yes Status: Resolved Assessment and Plan: Colonoscopy revealed signs of ischemic colitis in the sigmoid colon likely from her huge stool burden. Patient is asymptomatic today and she denied any abdominal pain. Continue aggressive bowel regimen, encourage ambulation and hydration (2) CKD (chronic kidney disease), stage IV Current Visit: Yes Status: Chronic Assessment and Plan: Currently appears to be at baseline. (3) History of recent surgery Current Visit: Yes Status: Acute Assessment and Plan: Recent admission in which she underwent a laparoscopic cholecystectomy for choledocholithiasis (4) Thrush Current Visit: Yes Status: Resolved Assessment and Plan: Fluconazole started this admission, stop date 03/21 (10 days of therapy) (5) Type 2 diabetes mellitus Current Visit: Yes Status: Chronic Assessment and Plan: Has had several hypoglycemic episodes this admission when nothing by mouth for bowel prep. on SSI now requiring 4u on average which we can continue at dis charge. (6) CKD (chronic kidney disease), stage IV Current Visit: No Status: Chronic DVT Prophylaxis: heparin sc - Time Spent with Patient Total time spent is greater than 50% in coordination of care (as documented) at patient's floor/unit and/or counseling patient: Internal Medicine: Result - Labs CBC & Chem 7: 03/11/19 04:16 03/11/19 04:16 - ABG Interpretation ABG results: PT/INR, D-dimer PT 11.1 Seconds (9.4-12.1) 03/09/19 09:56 - Impressions Impressions Videofluoroscopic Swallow 03/13/19 08:00 IMPRESSION: Swallowing mechanism grossly within normal limits without evidence of aspiration. Please see separate speech pathology report for full discussion of findings and recommendations. D/ / Brooks Gilbert MD / Brooks Gilbert MD Interpreting Provider: Brooks Gilbert MD Consult Discharge Plan - Plan Referrals: NONE,PCP [Primary Care Provider] - Prescriptions: Psyllium [Metamucil Fiber Singles Packet] 1 packet PO TID #60 powd.pack Polyethylene Glycol 3350 [Natura-Lax] 17 gm PO BID #60 powder (5) Type 2 diabetes mellitus Qualifiers: Diabetes mellitus halfway insulin use: with halfway use Diabetes mellitus complication status: with kidney complications Diabetes mellitus complication detail: with chronic kidney disease Chronic kidney disease stage: stage 4 (severe) Qualified Code(s): E11.22 - Type 2 diabetes mellitus with diabetic chronic kidney disease; N18.4 - Chronic kidney disease, stage 4 (severe); Z79.4 - correction (current) use of insulin
[2019-03-13] MEDS: Fluconazole 40 MG/ML UDC PO SCH (22:00)
[2019-03-13] MEDS: Piperacillin/Tazobactam 3.375 GM in 0.9 % Sodium Chloride Mini Bag 100 ML IVPB SCH (22:01)
[2019-03-14] MEDS: *HR* Heparin 5,000 UNIT/ML VIAL SQ SCH (06:12)
[2019-03-14] MEDS: Ondansetron 4 MG/2 ML VIAL IVP PRN (08:48)
[2019-03-14] MEDS: Fluconazole 100 MG TABLET PO SCH (10:58)
[2019-03-14] MEDS: hydrALAZINE 25 MG TABLET PO SCH (10:58)
[2019-03-14] MEDS: NIFEdipine XL (24 HR) 60 MG TAB.ER.24 PO SCH (10:58)
[2019-03-14] MEDS: *HR* Amiodarone 200 MG TABLET PO SCH (10:59)
[2019-03-14] MEDS: Psyllium 1 PACKET POWD.PACK PO SCH (10:59)
[2019-03-14] MEDS: Isosorbide MONOnitrate (24 HR) 60 MG TAB.ER.24H PO SCH (10:59)
[2019-03-14] MEDS: Aspirin 81 MG TAB.CHEW PO SCH (10:59)
[2019-03-14] MEDS: Insulin LISPRO 300 UNITS/3 ML VIAL SQ SCH (11:00)
[2019-03-14] MEDS: Furosemide 40 MG TABLET PO SCH (11:03)
[2019-03-14 11:19] VITALS: BP 136/71
== END 2019-03-14 15:29 | DRG 392 ==
LOC: 3ANU → SUATTDRO 06:22
PROVIDERS: ADMIT Internal Medicine; ATTEND Internal Medicine

== ENCOUNTER 2019-03-20 11:18 | Inpatient (IN) ==
[2019-03-20] MEDS ORDERED: Naloxone 0.4 MG/ML INJ IVP PRN (13:50)
[2019-03-20] MEDS ORDERED: Dextrose Gel 15 GM/37.5 ML TUBE PO PRN ×2 (13:56)
[2019-03-20] MEDS ORDERED: *HR* Dextrose 50 % in Water (Syg) 50 ML SYRINGE IVP PRN (13:56)
[2019-03-20] MEDS ORDERED: D5% in Water 1,000 ML IVC PRN (13:56)
[2019-03-20 14:24] LABS: Basophils % 0.2 %; Eosinophils # 0.2 K/mcL (0.0-0.6); Eosinophils % 1.7 %; Hematocrit 27.4 % (35.3-44.9); Hemoglobin 8.9 g/dL (11.5-15.4); Lymphocytes # 1.3 K/mcL (0.6-4.6); Lymphocytes % 15.1 %; Mean Corpuscular HGB Conc 32.5 g/dL (31.6-35.5); Mean Corpuscular Hemoglobin 34.4 pg (28.0-33.3); Mean Corpuscular Volume 105.8 fL (83.0-100.0); Mean Platelet Volume 11.1 fL (9.4-12.4); Monocytes # 0.7 K/mcL (0.0-1.3); Monocytes % 8.3 %; Neutrophils # 6.4 K/mcL (1.6-8.9); Platelet Count 213 K/mcL (140-400); Red Blood Count 2.59 M/mcL (3.82-4.97); Red Cell Distribution Width 16.2 % (11.5-14.5); Segmented Neutrophils % 73.7 %; White Blood Count 8.8 K/mcL (4.3-11.1)
[2019-03-20 14:37] LABS: Estimated Average Glucose 123 mg/dl
[2019-03-20 14:41] LABS: ABG Base Excess 4 mEq/L (-2 to 3); ABG HCO3 28 mEq/L (21-27); ABG Oxygen Saturation 93 % (95-98); ABG PCO2 40 mmHg (35-45); ABG PH 7.46 pH Units (7.32-7.45); ABG PO2 62 mmHg (85-104); ABG TCO2 29 mEq/L (20-26)
[2019-03-20] MEDS: Budesonide/Formoterol 160/4.5 1 PUFF INH IH SCH ×2 (15:12→20:18)
[2019-03-20] MEDS: Furosemide 40 MG/4 ML VIAL IVP SCH ×2 (15:21→21:37)
[2019-03-20] MEDS: MethylPREDNISolone 40 MG/ML VIAL IVP SCH (15:23)
[2019-03-20] MEDS: Ipratropium/Albuterol Neb 3 ML IH SCH ×2 (15:28→20:18)
[2019-03-20] MEDS: Azithromycin 500 MG in 0.9 % Sodium Chloride 250 ML IVPB SCH (15:37)
[2019-03-20] MEDS: Insulin LISPRO 300 UNITS/3 ML VIAL SQ SCH (16:36)
--- NOTE | 2019-03-20 16:46 | Internal Med History&Physical ---
Date of Encounter: 03/20/19 Time of Encounter: 15:00 Internal Medicine - H&P: HPI Chief complaint: Shortness of breath of 1 day duration History of present illness: Ms. Peng is a 83 year old female with pmh of diastolic CHF, atrial fibrilation not on anticoagulation, diabetes, hypothyroidism who was transferred from [place] for shortness of breath. Patient was recently here where she was managed for shortness of breath secondary to CHF. She comes in complaining of shortness of breath since last night. She has also been having some wheezing and some lower extremity swelling. Says any minimal exertion has been making her short of breath. She denies any other acute complaints. At [place] [facility], she was noted to be severely hypoxic and was placed on 8L of oxygen. Chest xray showed vascular congestion. She was transferred here for further management Past Med Surg Social Fam HX - Past Medical History Medical history: arthritis, atrial fibrillation, CHF, COPD, coronary artery disease, DVT, diabetes, hyperlipidemia, hypertension, myocardial infarction, renal disease, thyroid disease Additional medical history: left leg mole, melanoma, removed Psychiatric history: anxiety - Past Surgical History Surgical History: cataract, hysterectomy, knee replacement, orthopedic, other, RAYMOND/BSO Additional surgical history: cardiac stents, cataracts,gall stones removed, right knee, colonoscopy - Social History Smoking Status: Never smoker Smokeless Tobacco Status: No Alcohol use: none Drug use: none - Family History Mother Living Status: Hx Family Cardiac Disorders: Yes Father Adopted: No Family Member Ethnicity: Non- Living Status: Hx Family Cardiac Disorders: Yes (unknown type but of cardiac disease) Hx Family Respiratory Disorders: No Hx Family Cancer: No Hx Family GI Disorders: No Hx Family Endocrine Disorder: Yes Hx Family Neuromuscular Disorders: No Hx Family Neurologic Disorders: No Hx Family HEENT Disorders: No Hx Family Autoimmune Disorders: No - Additional Family History Additional family history: Family history reviewed and non contributory Internal Medicine - H&P: Meds Levothyroxine [Synthroid] 88 mcg PO QAM 01/22/16 [History] hydrALAZINE [HydrALAZINE] 25 mg PO QID 01/22/16 [History] Amiodarone [Cordarone] 200 mg PO QAM 03/25/16 [History] Docusate [Colace] 100 mg PO BID 03/25/16 [History] Albuterol Sulfate [Ventolin Hfa] 1 - 2 puff IH Q4H PRN 06/13/16 [History] Allopurinol [Zyloprim 100 MG] 100 mg PO QAM 03/19/18 [History] Atorvastatin [Lipitor] 10 mg PO QAM 03/19/18 [History] Carvedilol 3.125 mg PO BID #60 tab 03/19/18 [Rx] Cholecalciferol (Vitamin D3) [Vitamin D3] 2,000 unit PO QAM 03/19/18 [History] Hydralazine HCl 50 mg PO QID 08/25/18 [History] Insulin DETEMIR [Levemir] 12 unit SQ HS 08/25/18 [History] Insulin DETEMIR [Levemir] 20 unit SQ QAM 08/25/18 [History] Isosorbide MONOnitrate (24 HR) [Imdur] 60 mg PO QAM 08/25/18 [History] Promethazine [Phenergan] 25 mg PO Q6HR PRN 08/25/18 [History] Sennosides [Senna] 17.2 mg PO BID 08/25/18 [History] Acetaminophen [Tylenol] 650 mg PO Q6HR PRN 10/17/18 [History] Aspirin 81 mg PO QAM 10/17/18 [History] NIFEdipine [Nifedipine ER] 60 mg PO QAM 10/17/18 [History] Furosemide [Lasix] 40 mg PO QAM 02/25/19 [History] HYDROcodone/Acet 5/325 mg [[place] 5-325 mg] 1 tab PO Q6H PRN 03/09/19 [History] Pyridoxine HCl [Vitamin B-6] 50 mg PO QAM 03/09/19 [History] Polyethylene Glycol 3350 [Natura-Lax] 17 gm PO BID #60 powder 03/13/19 [Rx] Psyllium [Metamucil Fiber Singles Packet] 1 packet PO TID #60 powd.pack 03/13/19 [Rx] Fluconazole [Diflucan] 100 mg PO DAILY #7 tablet 03/14/19 [Rx] Allergy/AdvReac Type Severity Reaction Status Date / Time Cyclobenzaprine Allergy Dizziness Verified 02/25/19 21:54 [From Flexeril] simvastatin AdvReac Muscle Pain Verified 02/25/19 21:54 All Systems PM: A 10-system review of systems was performed and is negative for pertinent findings except as documented above in the HPI. - Constitutional Constitutional: no chills, no fever(s), no night sweats - EENT Eyes: no change in vision, no discharge, no pain, no photophobia Ears: no ear discharge, no ear pain, no tinnitus Nose, mouth and throat: no dysphagia, no nasal discharge, no neck pain, no sore throat - Cardiovascular Cardiovascular ROS IM: dyspnea, no chest pain, no diaphoresis, no lightheadedness, no palpitations, no syncope - Respiratory Respiratory: cough, dyspnea, no wheezing, no excessive phlegm production - Gastrointestinal Gastrointestinal: no abdominal pain, no diarrhea, no hematemesis, no hematochezia, no melena, no nausea, no vomiting - Genitourinary Genitourinary: no change in urinary stream, no dysuria, no flank pain, no hem aturia - Musculoskeletal Musculoskeletal ROS IM: no numbness, no tingling - Integumentary Integumentary IM: no rash, no unusual bruising - Neurological Neurological ROS: no confusion, no convulsions, no focal weakness, no numbness, no tingling, no tremor(s) - Hematologic/Lymphatic Hematologic/Lymphatic: no easy bruising - Constitutional Vitals: Temp Pulse Resp BP Pulse Ox 97.8 F 70 32 149/66 92 03/20/19 13:25 03/20/19 15:58 03/20/19 15:58 03/20/19 15:58 03/20/19 15:58 General appearance: Present: mild distress Exam: Pt has moderate respiratory distress - Head Head exam: Present: atraumatic, normocephalic - Eye Eye exam: Present: PERRL, conjuntiva pink, sclera anicteric Pupils: Present: PERRL - Neck Neck exam general surgery: Present: supple, trachea midline. Absent: lympha denopathy - Respiratory Respiratory exam: Present: decreased breath sounds, respiratory distress. Absent: accessory muscle use, rales, rhonchi, wheezes - Cardiovascular Cardiovascular exam: Present: RRR, +S1, +S2. Absent: diastolic murmur, gallop, rubs, systolic murmur - GI/Abdominal GI/Abdominal exam: Present: normal bowel sounds, soft, no peritoneal signs. Absent: distended, tenderness - Extremities Exam Extremities exam: Present: warm, radial pulses palpable and symmetrical. Absent: calf tenderness, cyanotic, pedal edema - Neurological Exam Neurological exam: Present: CN II-XII intact, oriented X3, no focal deficits. Absent: pronater drift, facial droop, speech deficit - Skin Skin exam: Present: dry, intact Internal Med - H&P Results - Labs CBC & Chem 7: 03/20/19 13:21 03/20/19 16:52 Labs: Short CBC 03/20/19 Range/Units 13:21 WBC 8.8 (4.3-11.1) K/mcL Hgb 8.9 L (11.5-15.4) g/dL Hct 27.4 L (35.3-44.9) % Plt Count 213 (140-400) K/mcL Neutrophils # 6.4 (1.6-8.9) K/mcL - ABG Interpretation ABG results: 03/20/19 14:36 ABG pH 7.46 H ABG pCO2 40 ABG pO2 62 L ABG HCO3 28 H ABG Total CO2 29 H ABG O2 Saturation 93 L ABG Base Excess 4 H - Impressions ITS Impressions Chest X-Ray 03/20/19 13:21 IMPRESSION: No significant change from 03/10/2019 with bilateral interstitial and airspace opacities along with bilateral pleural effusions. Findings may be on the basis of congestive heart failure with interstitial and pulmonary edema although multifocal pneumonia could have a similar appearance in the appropriate clinical setting. D/ / 03/20/2019 14:08:04 Hernán Robins MD / [facility] Interpreting Provider: Hernán Robins MD - Assessment and Plan (1) Acute and chronic respiratory failure with hypoxia Current Visit: Yes Status: Acute Assessment and plan: Pt comes in with shortness of breath and hypoxic resp failure requring 8L of oxygen likely 2/2 to CHF exacerbation vs pNeumonia and COPD Started on antibiotics with cetriaxone and azithromycin, lasix and BIPAP Nebs and steroids to cover wheezing . Pulmonary recs appreciated due to degree of hypoxemia (2) Acute kidney injury superimposed on CKD Current Visit: Yes Status: Acute Assessment and plan: Will monitor creatinine with diuresis. Nephrology consulted and appreciate recs (3) CHF exacerbation Current Visit: Yes Status: Acute Assessment and plan: See #1. Continue BIPAP and diuresis Qualifiers: Heart failure type: diastolic Qualified Code(s): I50.33 - Acute on chronic diastolic (congestive) heart failure (4) Hypothyroidism Current Visit: Yes Status: Acute Assessment and plan: Continue home meds Qualifiers: Hypothyroidism type: unspecified Qualified Code(s): E03.9 - Hypothyroidism, unspecified (5) Diabetes mellitus Current Visit: Yes Status: Acute Assessment and plan: Continue insulin and monitor fingersticks Qualifiers: Diabetes mellitus type: type 2 Diabetes mellitus intermodal truck driver insulin use: with senior care use Diabetes mellitus complication status: without complication Qualified Code(s): E11.9 - Type 2 diabetes mellitus without complications; Z79.4 - rn long term care (current) use of insulin (6) COPD exacerbation Current Visit: Yes Status: Acute Assessment and plan: Continue nebs and steroids (7) DVT prophylaxis Current Visit: Yes Status: Acute Assessment and plan: heparin sc - Time Spent With Patient Total time spent is greater than 50% in coordination of care (as documented) at patient's floor/unit and/or counseling patient:
[2019-03-20 17:25] LABS: Albumin 3.6 g/dL (3.5-5.7); Albumin/Globulin Ratio 1.6 (1.1-2.2); Bilirubin,Total 0.9 mg/dL (0.3-1.0); Calcium 9.5 mg/dL (8.6-10.3); Globulin 2.3 g/dL (2.4-3.5); Potassium 4.9 mEq/L (3.5-5.1); Total Protein 5.9 g/dL (6.4-8.9)
[2019-03-20] MEDS ORDERED: NON-FORMULARY MEDICATION 1 EACH EACH (Insulin Detemir 12 UNIT) SQ SCH (21:00)
[2019-03-20] MEDS: *HR* Heparin 5,000 UNIT/ML VIAL SQ SCH (21:37)
[2019-03-20] MEDS: Sennosides 8.6 MG TABLET PO SCH (21:38)
[2019-03-20] MEDS: Insulin DETEMIR 100 UNIT/ML X5UNITS SQ SCH (21:38)
[2019-03-21] MEDS: Ipratropium/Albuterol Neb 3 ML IH SCH ×7 (00:27→23:42)
[2019-03-21] MEDS: MethylPREDNISolone 40 MG/ML VIAL IVP SCH ×4 (00:27→23:52)
[2019-03-21 05:05] LABS: Hematocrit 25.6 % (35.3-44.9); Hemoglobin 8.3 g/dL (11.5-15.4); Immature Granulocytes % 0.3 % (0-4); Lymphocytes # 0.6 K/mcL (0.6-4.6); Lymphocytes % 18.5 %; Mean Corpuscular HGB Conc 32.4 g/dL (31.6-35.5); Mean Corpuscular Hemoglobin 34.9 pg (28.0-33.3); Mean Corpuscular Volume 107.6 fL (83.0-100.0); Mean Platelet Volume 10.6 fL (9.4-12.4); Monocytes % 1.3 %; Neutrophils # 2.6 K/mcL (1.6-8.9); Platelet Count 219 K/mcL (140-400); Red Blood Count 2.38 M/mcL (3.82-4.97); Segmented Neutrophils % 79.9 %
[2019-03-21 05:12] LABS: Calcium 9.5 mg/dL (8.6-10.3); Magnesium 2.3 mg/dL (1.6-2.6); Potassium 4.5 mEq/L (3.5-5.1)
[2019-03-21 05:18] LABS: White Blood Count 3.2 K/mcL (4.3-11.1)
[2019-03-21] MEDS: *HR* Heparin 5,000 UNIT/ML VIAL SQ SCH ×2 (06:11→18:58)
--- NOTE | 2019-03-21 07:50 | Internal Med Progress Note ---
Hospitalist Progress Note - Encounter Date of Encounter: 03/21/19 Time of Encounter: 07:50 - Subjective Interval History: No acute events overnight - Exam Vitals: Temp Pulse Resp BP Pulse Ox 98.5 F 64 15 134/60 97 03/21/19 07:02 03/21/19 07:02 03/21/19 07:02 03/21/19 07:02 03/21/19 07:02 Exam: Gen.Mild respiratory distress CVS. Normal S1 S2 Resp. Bilateral crackles GI. Soft, NT, ND, +BS Ext. 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 GCS 15 - Assessment and Plan (1) Acute and chronic respiratory failure with hypoxia Current Visit: Yes Status: Acute Assessment and Plan: Pt comes in with shortness of breath and hypoxic resp failure requring 8L of oxygen likely 2/2 to CHF exacerbation vs pNeumonia and COPD Started on antibiotics with cetriaxone and azithromycin, lasix and BIPAP Nebs and steroids to cover wheezing . Pulmonary recs appreciated due to degree of hypoxemia Patient improving this am. Weaned down oxygen from 8L to 6L. Will continue to monitor (2) Acute kidney injury superimposed on CKD Current Visit: Yes Status: Acute Assessment and Plan: Will monitor creatinine with diuresis. Nephrology consulted and appreciate recs (3) CHF exacerbation Current Visit: Yes Status: Acute Assessment and Plan: See #1. Continue BIPAP and diuresis (4) Hypothyroidism Current Visit: Yes Status: Acute Assessment and Plan: Continue home meds (5) Diabetes mellitus Current Visit: Yes Status: Acute Assessment and Plan: Continue insulin and monitor fingersticks (6) COPD exacerbation Current Visit: Yes Status: Acute Assessment and Plan: Continue nebs and steroids (7) DVT prophylaxis Current Visit: Yes Status: Acute Assessment and Plan: heparin sc - Time Spent with Patient Total time spent is greater than 50% in coordination of care (as documented) at patient's floor/unit and/or counseling patient: Internal Medicine: Result - Labs CBC & Chem 7: 03/21/19 04:16 03/21/19 04:16 Labs: Short CBC 03/20/19 03/21/19 Range/Units 13:21 04:16 WBC 8.8 3.2 L D (4.3-11.1) K/mcL Hgb 8.9 L 8.3 L (11.5-15.4) g/dL Hct 27.4 L 25.6 L (35.3-44.9) % Plt Count 213 219 (140-400) K/mcL Neutrophils # 6.4 2.6 (1.6-8.9) K/mcL BMP 03/20/19 03/21/19 16:52 04:16 Sodium 136 139 Potassium 4.9 4.5 Chloride 98 99 Carbon Dioxide 29 29 BUN 50 H 53 H Creatinine 3.68 H 3.68 H Glucose 172 H 125 H Calcium 9.5 9.5 Liver Function 03/20/19 Range/Units 16:52 Total Bilirubin 0.9 (0.3-1.0) mg/dL AST 28 (13-39) Units/L ALT 20 (7-52) Units/L Alkaline Phosphatase 79 (34-104) Units/L Albumin 3.6 (3.5-5.7) g/dL - ABG Interpretation ABG results: ABG ABG pH 7.46 pH Units (7.32-7.45) H 03/20/19 14:36 ABG pCO2 40 mmHg (35-45) 03/20/19 14:36 ABG pO2 62 mmHg (85-104) L 03/20/19 14:36 ABG O2 Saturation 93 % (95-98) L 03/20/19 14:36 - Impressions Impressions Chest X-Ray 03/20/19 13:21 IMPRESSION: No significant change from 03/10/2019 with bilateral interstitial and airspace opacities along with bilateral pleural effusions. Findings may be on the basis of congestive heart failure with interstitial and pulmonary edema although multifocal pneumonia could have a similar appearance in the appropriate clinical setting. D/ / 03/20/2019 14:08:04 Hernán Robins MD / [email or web address] Interpreting Provider: Hernán Robins MD Chest CT 03/20/19 14:41 IMPRESSION: CHF with bilateral pleural effusions. Suggestion of anemia and acute colitis. D/ / El Cartagena MD / El Cartagena MD Interpreting Provider: El Cartagena MD Consult Discharge Plan - Plan Referrals: Alisha Paniagua, ISSUER [Primary Care Provider] - (3) CHF exacerbation Qualifiers: Heart failure type: diastolic Qualified Code(s): I50.33 - Acute on chronic diastolic (congestive) heart failure (4) Hypothyroidism Qualifiers: Hypothyroidism type: unspecified Qualified Code(s): E03.9 - Hypothyroidism, unspecified (5) Diabetes mellitus Qualifiers: Diabetes mellitus type: type 2 Diabetes mellitus longterm insulin use: with longterm use Diabetes mellitus complication status: without complication Qualified Code(s): E11.9 - Type 2 diabetes mellitus without complications; Z79.4 - FDC (current) use of insulin
[2019-03-21] MEDS: Budesonide/Formoterol 160/4.5 1 PUFF INH IH SCH ×2 (08:12→19:57)
[2019-03-21] MEDS ORDERED: Albumin 25% 25gram/100mL 25 GM/100 ML IV.SOLN IVC SCH (08:15)
[2019-03-21] MEDS ORDERED: NON-FORMULARY MEDICATION 1 EACH EACH (Insulin Detemir 20 UNIT) SQ SCH (09:00)
[2019-03-21] MEDS ORDERED: Albumin 25% 25gram/100mL 50 GM/200 ML IV.SOLN IVC SCH (09:00)
[2019-03-21] MEDS: Isosorbide MONOnitrate (24 HR) 60 MG TAB.ER.24H PO SCH (09:50)
[2019-03-21] MEDS: Aspirin 81 MG TAB.CHEW PO SCH (09:50)
[2019-03-21] MEDS: Cholecalciferol (D-3) 1,000 UNIT (25MCG) TABLET PO SCH (09:50)
[2019-03-21] MEDS: NIFEdipine XL (24 HR) 60 MG TAB.ER.24 PO SCH (09:50)
[2019-03-21] MEDS: *HR* Amiodarone 200 MG TABLET PO SCH (09:50)
[2019-03-21] MEDS: Sennosides 8.6 MG TABLET PO SCH ×2 (09:51→21:44)
[2019-03-21] MEDS: Insulin LISPRO 300 UNITS/3 ML VIAL SQ SCH ×3 (10:17→17:03)
[2019-03-21] MEDS: Furosemide 40 MG/4 ML VIAL IVP SCH ×2 (10:18→21:45)
[2019-03-21] MEDS: Insulin DETEMIR 100 UNIT/ML X5UNITS SQ SCH ×2 (10:19→21:46)
--- NOTE | 2019-03-21 11:20 | Nephrology Consult Note ---
Date of Encounter: 03/21/19 Time of Encounter: 11:14 Assessment and Plan (1) Acute kidney injury superimposed on CKD Current Visit: Yes Status: Acute Baseline appears to be 13-15. GFR is 12 today. Continue IV Lasix today, reassess GFR in am before giving am dose. If GFR remains 12 or worse, HD likely. Pt is agreeable. Avoid nephrotoxins and renal dose. Strict I/O Daily weights. (2) Acute and chronic respiratory failure with hypoxia Current Visit: Yes Status: Acute Per primary, continue supplemental oxygen. (3) CHF exacerbation Current Visit: Yes Status: Acute 1.5 liter fluid restriction. Per primary. Qualifiers: Heart failure type: diastolic Qualified Code(s): I50.33 - Acute on chronic diastolic (congestive) heart failure History of Present Illness - Reason for Consult Consult date: 03/21/19 Chronic Kidney Disease Requesting physician: Zeke Rodriguez - Chief Complaint CHF - History of Present Illness Ms. Peng is an 83 year old female who presented from [facility] for shortness of breath. She reports it started on Monday. She said she told the night nurse she was having trouble breathing and it progressively worsened. She denies chest pain, admits to still feeling short of breath, is on supplemental oxygen. Denies nausea, vomiting, or diarrhea. Denies fever, chills. Admits to feeling fatigued. PMH: diastolic CHF, atrial fibrilation not on anticoagulation, diabetes, hypothyroidism and CKD 4. She is seen by Dr. Mccullough in the office. She has required HD in the past. She is open to HD for this hospitalization if needed. Denies tobacco use, etoh, or illicit drug use. Denies any FH of CKD or HD. She was previously living in an assisted living but has since moved to the long-term unit. She is no longer able to care for herself in the assisted living. Past Med Surg Social Fam HX - Past Medical History Medical history: arthritis, atrial fibrillation, CHF, COPD, coronary artery disease, DVT, diabetes, hyperlipidemia, hypertension, myocardial infarction, renal disease, thyroid disease Additional medical history: left leg mole, melanoma, removed Psychiatric history: anxiety - Past Surgical History Surgical History: cataract, hysterectomy, knee replacement, orthopedic, other, RAYMOND/BSO Additional surgical history: cardiac stents, cataracts,gall stones removed, right knee, colonoscopy - Social History Smoking Status: Never smoker Smokeless Tobacco Status: No Alcohol use: none Drug use: none - Family History Mother Living Status: Hx Family Cardiac Disorders: Yes Father Adopted: No Family Member Ethnicity: Non- Living Status: Hx Family Cardiac Disorders: Yes (unknown type but of cardiac disease) Hx Family Respiratory Disorders: No Hx Family Cancer: No Hx Family GI Disorders: No Hx Family Endocrine Disorder: Yes Hx Family Neuromuscular Disorders: No Hx Family Neurologic Disorders: No Hx Family HEENT Disorders: No Hx Family Autoimmune Disorders: No Medications and Allergies Levothyroxine [Synthroid] 88 mcg PO QAM 01/22/16 [History] hydrALAZINE [HydrALAZINE] 25 mg PO QID 01/22/16 [History] Amiodarone [Cordarone] 200 mg PO QAM 03/25/16 [History] Docusate [Colace] 100 mg PO BID 03/25/16 [History] Albuterol Sulfate [Ventolin Hfa] 1 - 2 puff IH Q4H PRN 06/13/16 [History] Allopurinol [Zyloprim 100 MG] 100 mg PO QAM 03/19/18 [History] Atorvastatin [Lipitor] 10 mg PO QAM 03/19/18 [History] Carvedilol 3.125 mg PO BID #60 tab 03/19/18 [Rx] Cholecalciferol (Vitamin D3) [Vitamin D3] 2,000 unit PO QAM 03/19/18 [History] Hydralazine HCl 50 mg PO QID 08/25/18 [History] Insulin DETEMIR [Levemir] 12 unit SQ HS 08/25/18 [History] Insulin DETEMIR [Levemir] 20 unit SQ QAM 08/25/18 [History] Isosorbide MONOnitrate (24 HR) [Imdur] 60 mg PO QAM 08/25/18 [History] Promethazine [Phenergan] 25 mg PO Q6HR PRN 08/25/18 [History] Sennosides [Senna] 17.2 mg PO BID 08/25/18 [History] Acetaminophen [Tylenol] 650 mg PO Q6HR PRN 10/17/18 [History] Aspirin 81 mg PO QAM 10/17/18 [History] NIFEdipine [Nifedipine ER] 60 mg PO QAM 10/17/18 [History] Furosemide [Lasix] 40 mg PO QAM 02/25/19 [History] HYDROcodone/Acet 5/325 mg [[place] 5-325 mg] 1 tab PO Q6H PRN 03/09/19 [History] Pyridoxine HCl [Vitamin B-6] 50 mg PO QAM 03/09/19 [History] Polyethylene Glycol 3350 [Natura-Lax] 17 gm PO BID #60 powder 03/13/19 [Rx] Psyllium [Metamucil Fiber Singles Packet] 1 packet PO TID #60 powd.pack 03/13/19 [Rx] Fluconazole [Diflucan] 100 mg PO DAILY #7 tablet 03/14/19 [Rx] Allergy/AdvReac Type Severity Reaction Status Date / Time Cyclobenzaprine Allergy Dizziness Verified 02/25/19 21:54 [From Flexeril] simvastatin AdvReac Muscle Pain Verified 02/25/19 21:54 Review of Systems All Systems review (narrative): The remainder of the systems are negative. Constitutional: fatigue, no chills, no fever(s) Cardiovascular: dyspnea, dyspnea on exertion, edema, no chest pain Respiratory: cough, no hemoptysis, no wheezing Gastrointestinal: no diarrhea, no nausea, no vomiting Genitourinary Female: no hematuria Exam - Vital Signs Vital signs: Initial Vital Signs Temp Pulse Resp BP Pulse Ox 97.8 F 93 24 163/78 93 03/20/19 13:25 03/20/19 13:25 03/20/19 13:25 03/20/19 13:25 03/20/19 13:25 Vital Signs - Last 8 Hours Temp Pulse Resp BP Pulse Ox 03/21/19 08:13 18 95 03/21/19 07:02 98.5 F 64 15 134/60 97 03/21/19 04:49 97.6 F 64 14 150/55 93 03/21/19 04:15 18 93 Intake and Output 03/20/19 03/21/19 03/21/19 23:59 07:59 15:59 Intake Total 250 / 250 0 / 240 240 / 240 Output Total 0 / 0 Balance 250 / 250 0 / 240 240 / 240 Intake: IV Fluids 250 / 250 Zithromax 500 MG In 0.9 % 250 / 250 Sodium Chloride 250 ML @ 252 mls/hr IVPB Q24H [facility] Rx#: [id number] Oral 0 / 0 0 / 240 240 / 240 Output: Urine 0 / 0 Other: Meal Breakfast Percent of Meal Consumed 40% # Urine Diapers 1 1 Weight 86 kg Blood Glucose* 151 Patient Weight 03/21/19 23:59 Weight 86 kg - General Appearance General appearance: well-developed, well-nourished EENT: ATNC, hearing intact, vision intact Neck: supple Respiratory: rhonchi Additional Comments: Diminished in bases. Cardiology: edema (Non pitting edema noted to all four extremities.), normal S1, normal S2 Gastrointestinal: normoactive bowel sounds, no tenderness, no guarding Integumentary: no rash, warm and dry Neurologic: alert and oriented x3 Musculoskeletal: no deformities, no erythema Psychiatric: mood/affect appropriate, cooperative Results - Lab Results 03/21/19 04:16 03/21/19 04:16 Most recent lab results 03/21/19 04:16 Calcium 9.5 Phosphorus 4.0 Magnesium 2.3 Consult Discharge Plan - Plan Referrals: Alisha Paniagua HARMONIC ANALYST [Primary Care Provider] -
[2019-03-21] MEDS: cefTRIAXone 1,000 MG in Water for inj. (sterile) 10 ML IVP SCH (15:49)
[2019-03-21] MEDS: Azithromycin 500 MG in 0.9 % Sodium Chloride 250 ML IVPB SCH (15:49)
[2019-03-22 03:08] LABS: Hematocrit 22.3 % (35.3-44.9); Hemoglobin 7.2 g/dL (11.5-15.4); Immature Granulocytes % 0.4 % (0-4); Lymphocytes # 0.4 K/mcL (0.6-4.6); Lymphocytes % 8.5 %; Mean Corpuscular HGB Conc 32.3 g/dL (31.6-35.5); Mean Corpuscular Hemoglobin 34.1 pg (28.0-33.3); Mean Corpuscular Volume 105.7 fL (83.0-100.0); Mean Platelet Volume 10.6 fL (9.4-12.4); Monocytes # 0.2 K/mcL (0.0-1.3); Monocytes % 3.6 %; Neutrophils # 3.9 K/mcL (1.6-8.9); Platelet Count 203 K/mcL (140-400); Red Blood Count 2.11 M/mcL (3.82-4.97); Red Cell Distribution Width 16.3 % (11.5-14.5); Segmented Neutrophils % 87.5 %; White Blood Count 4.5 K/mcL (4.3-11.1)
[2019-03-22 03:29] LABS: Magnesium 2.1 mg/dL (1.6-2.6); Phosphorous 3.9 mg/dL (2.7-4.5); Potassium 4.2 mEq/L (3.5-5.1)
[2019-03-22] MEDS: Ipratropium/Albuterol Neb 3 ML IH SCH ×6 (03:52→23:25)
[2019-03-22] MEDS ORDERED: 0.9 % Sodium Chloride 500 ML ONE (05:47)
[2019-03-22] MEDS: *HR* Heparin 5,000 UNIT/ML VIAL SQ SCH ×2 (05:59→18:17)
[2019-03-22] MEDS: Budesonide/Formoterol 160/4.5 1 PUFF INH IH SCH ×2 (07:31→19:52)
[2019-03-22] MEDS: Insulin LISPRO 300 UNITS/3 ML VIAL SQ SCH ×3 (07:45→18:16)
--- NOTE | 2019-03-22 09:00 | Internal Med Progress Note ---
Hospitalist Progress Note - Encounter Date of Encounter: 03/22/19 Time of Encounter: 09:00 - Subjective Interval History: No acute events overnight - Exam Vitals: Temp Pulse Resp BP Pulse Ox 98 F 68 20 134/57 95 03/22/19 08:43 03/22/19 08:43 03/22/19 08:43 03/22/19 08:43 03/22/19 08:43 Exam: Gen.NAD CVS. Normal S1 S2 Resp. Bilateral crackles GI. Soft, NT, ND, +BS Ext. 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 GCS 15 - Assessment and Plan (1) Acute and chronic respiratory failure with hypoxia Current Visit: Yes Status: Acute Assessment and Plan: Pt comes in with shortness of breath and hypoxic resp failure requring 8L of oxygen likely 2/2 to CHF exacerbation vs pNeumonia and COPD Started on antibiotics with cetriaxone and azithromycin, lasix and BIPAP Nebs and steroids to cover wheezing . Patient improving this am. Weaned down oxygen from 8L to 3L. Will continue to monitor (2) Acute kidney injury superimposed on CKD Current Visit: Yes Status: Acute Assessment and Plan: Will monitor creatinine with diuresis. Nephrology consulted and appreciate recs Was on lasix BID with albumin. Creatinine worse this am Hold lasix per renal, will reassess in am for dialysis vs resumption of diuretics per renal. Discussed with Dr Hoffman (3) CHF exacerbation Current Visit: Yes Status: Acute Assessment and Plan: See #1. Continue BIPAP and diuresis. Improved (4) Hypothyroidism Current Visit: Yes Status: Acute Assessment and Plan: Continue home meds (5) Diabetes mellitus Current Visit: Yes Status: Acute Assessment and Plan: Continue insulin and monitor fingersticks (6) COPD exacerbation Current Visit: Yes Status: Acute Assessment and Plan: Continue nebs and steroids (7) DVT prophylaxis Current Visit: Yes Status: Acute Assessment and Plan: heparin sc - Time Spent with Patient Total time spent is greater than 50% in coordination of care (as documented) at patient's floor/unit and/or counseling patient: Internal Medicine: Result - Labs CBC & Chem 7: 03/22/19 02:17 03/22/19 02:17 Labs: Short CBC 03/22/19 Range/Units 02:17 WBC 4.5 (4.3-11.1) K/mcL Hgb 7.2 L (11.5-15.4) g/dL Hct 22.3 L (35.3-44.9) % Plt Count 203 (140-400) K/mcL Neutrophils # 3.9 (1.6-8.9) K/mcL BMP 03/22/19 02:17 Sodium 138 Potassium 4.2 Chloride 99 Carbon Dioxide 28 BUN 65 H Creatinine 4.07 H Glucose 110 H Calcium 9.0 - ABG Interpretation ABG results: ABG ABG pH 7.46 pH Units (7.32-7.45) H 03/20/19 14:36 ABG pCO2 40 mmHg (35-45) 03/20/19 14:36 ABG pO2 62 mmHg (85-104) L 03/20/19 14:36 ABG O2 Saturation 93 % (95-98) L 03/20/19 14:36 - Impressions Impressions Chest Ultrasound 03/21/19 12:35 IMPRESSION: 1. Ultrasound-guided left thoracentesis performed. 2. Small right pleural effusion, insufficient for therapeutic thoracentesis. D/ / Milton Belle MD / Milton Belle MD Interpreting Provider: Milton Belle MD Thoracentesis 03/21/19 12:35 IMPRESSION: 1. Ultrasound-guided left thoracentesis performed. 2. Small right pleural effusion, insufficient for therapeutic thoracentesis. D/ / Milton Belle MD / Milton Belle MD Interpreting Provider: Milton Belle MD Chest X-Ray 03/21/19 15:26 IMPRESSION: Diminishing pleural effusions with persistent bibasilar atelectasis right greater than left. D/ / 03/21/2019 16:00:27 Erickson Thornton MD / suzanne Interpreting Provider: Erickson Thornton MD Consult Discharge Plan - Plan Referrals: Alisha Paniagua, ENGINE LATHE OPERATOR [Primary Care Provider] - (3) CHF exacerbation Qualifiers: Heart failure type: diastolic Qualified Code(s): I50.33 - Acute on chronic diastolic (congestive) heart failure (4) Hypothyroidism Qualifiers: Hypothyroidism type: unspecified Qualified Code(s): E03.9 - Hypothyroidism, unspecified (5) Diabetes mellitus Qualifiers: Diabetes mellitus type: type 2 Diabetes mellitus alf insulin use: with alf use Diabetes mellitus complication status: without complication Qualified Code(s): E11.9 - Type 2 diabetes mellitus without complications; Z79.4 - rn cardiovascular icu (current) use of insulin
[2019-03-22] MEDS: MethylPREDNISolone 40 MG/ML VIAL IVP SCH ×4 (09:27→23:56)
[2019-03-22] MEDS: NIFEdipine XL (24 HR) 60 MG TAB.ER.24 PO SCH (09:29)
[2019-03-22] MEDS: Aspirin 81 MG TAB.CHEW PO SCH (09:29)
[2019-03-22] MEDS: Isosorbide MONOnitrate (24 HR) 60 MG TAB.ER.24H PO SCH (09:29)
[2019-03-22] MEDS: Cholecalciferol (D-3) 1,000 UNIT (25MCG) TABLET PO SCH (09:30)
[2019-03-22] MEDS: Sennosides 8.6 MG TABLET PO SCH ×2 (09:30→20:51)
[2019-03-22] MEDS: *HR* Amiodarone 200 MG TABLET PO SCH (09:30)
[2019-03-22] MEDS: cefTRIAXone 1,000 MG in Water for inj. (sterile) 10 ML IVP SCH ×2 (09:31→12:49)
[2019-03-22] MEDS: Insulin DETEMIR 100 UNIT/ML X5UNITS SQ SCH ×2 (09:43→20:51)
--- NOTE | 2019-03-22 09:52 | Nephrology Progress Note ---
Date of Encounter: 03/22/19 Time of Encounter: 09:52 - Assessment and Plan (1) Acute kidney injury superimposed on CKD Current Visit: Yes Status: Acute Baseline appears to be 13-15. Hold IV Lasix today, reassess GFR in am before giving am dose. Pt is agreeable. Avoid nephrotoxins and renal dose. Strict I/O Daily weights. Consult dietitian for education on low potassium diet (2) CHF exacerbation Current Visit: Yes Status: Acute Qualifiers: Heart failure type: diastolic Qualified Code(s): I50.33 - Acute on chronic diastolic (congestive) heart failure (3) Acute and chronic respiratory failure with hypoxia Current Visit: Yes Status: Acute Subjective Principal diagnosis: raymond/ckd Interval history: The patient was seen. She feels better. Still has some shortness of breath. Her review of systems is otherwise is stable. Objective - Vital Signs Vital signs: Vital Signs Temp Pulse Resp BP Pulse Ox 03/22/19 08:43 98 F 68 20 134/57 95 03/22/19 08:28 98.3 F 70 20 139/58 94 03/22/19 07:36 98.0 F 68 24 133/62 100 03/22/19 07:33 18 97 03/22/19 04:15 97.8 F 66 30 128/58 100 03/22/19 03:52 13 100 03/21/19 23:56 65 32 124/56 100 03/21/19 23:42 32 99 03/21/19 21:49 90 03/21/19 20:15 99.3 F 67 14 119/44 90 03/21/19 19:58 17 92 03/21/19 16:53 98.1 F 108 152/106 96 03/21/19 16:34 18 92 03/21/19 15:38 98.2 F 67 131/60 94 03/21/19 11:34 98.1 F 98 138/60 93 03/21/19 11:03 16 95 Intake and Output 03/21/19 03/22/19 03/22/19 23:59 07:59 15:59 Intake Total 800 / 1040 170 / 520 350 / 520 Output Total 0 / 0 0 / 0 Balance 800 / 1040 170 / 520 350 / 520 Intake: IV Fluids 560 / 560 Flexbumin 50 gm In 200 ml @ 60 300 / 300 mls/hr IVC .Q3H20M [facility] Rx#: [id number] Rocephin 1,000 MG In Water for inj. (sterile) 10 ML @ 600 mls/ hr IVP DAILY [facility] Rx#:[id number] Zithromax 500 MG In 0.9 % 250 / 250 Sodium Chloride 250 ML @ 252 mls/hr IVPB Q24H [facility] Rx#: [id number] Oral 240 / 480 170 / 170 Blood Product 350 / 350 Rbcs Leuko Poor As-1 Unit 350 / 350 [id number] Output: Urine 0 / 0 0 / 0 Other: Meal Dinner Percent of Meal Consumed 10% # Urine Diapers 1 Weight 84 kg 84.9 kg Blood Glucose* 170 128 Patient Weight 03/22/19 23:59 Weight 84.9 kg - General Appearance General appearance: Present: well-developed, well-nourished EENT: Present: ATNC Neck: Present: supple Respiratory: Present: rales (Slight rales) Cardiology: Present: regular rate Gastrointestinal: Present: no tenderness Neurologic: Present: alert and oriented x3 Musculoskeletal: Present: no cyanosis Psychiatric: Present: mood/affect appropriate - Lab 03/22/19 02:17 03/22/19 02:17 Most recent lab results 03/22/19 02:17 Calcium 9.0 Phosphorus 3.9 Magnesium 2.1 Consult Discharge Plan - Plan Referrals: Alisha Paniagua, LINE APPLIANCE ASSEMBLER [Primary Care Provider] -
[2019-03-22] MEDS ORDERED: Furosemide 20 MG/2 ML VIAL IVP ONE (16:30)
[2019-03-22] MEDS: Azithromycin 500 MG in 0.9 % Sodium Chloride 250 ML IVPB SCH (18:18)
[2019-03-23] MEDS: Ipratropium/Albuterol Neb 3 ML IH SCH ×6 (03:53→23:01)
[2019-03-23 05:06] LABS: Calcium 8.9 mg/dL (8.6-10.3); Magnesium 2.1 mg/dL (1.6-2.6); Phosphorous 4.2 mg/dL (2.7-4.5); Potassium 4.4 mEq/L (3.5-5.1)
[2019-03-23 05:52] LABS: Hemoglobin 8.4 g/dL (11.5-15.4); Immature Granulocytes % 0.2 % (0-4); Lymphocytes # 0.4 K/mcL (0.6-4.6); Lymphocytes % 9.5 %; Mean Corpuscular HGB Conc 32.3 g/dL (31.6-35.5); Mean Corpuscular Hemoglobin 33.5 pg (28.0-33.3); Mean Corpuscular Volume 103.6 fL (83.0-100.0); Mean Platelet Volume 10.9 fL (9.4-12.4); Monocytes # 0.1 K/mcL (0.0-1.3); Monocytes % 3.3 %; Neutrophils # 3.7 K/mcL (1.6-8.9); Platelet Count 208 K/mcL (140-400); Red Blood Count 2.51 M/mcL (3.82-4.97); Red Cell Distribution Width 17.1 % (11.5-14.5); White Blood Count 4.3 K/mcL (4.3-11.1)
[2019-03-23] MEDS: *HR* Heparin 5,000 UNIT/ML VIAL SQ SCH ×2 (06:31→17:13)
[2019-03-23] MEDS: Budesonide/Formoterol 160/4.5 1 PUFF INH IH SCH ×2 (07:31→20:09)
[2019-03-23] MEDS: *HR* Amiodarone 200 MG TABLET PO SCH (10:02)
[2019-03-23] MEDS: Isosorbide MONOnitrate (24 HR) 60 MG TAB.ER.24H PO SCH (10:02)
[2019-03-23] MEDS: NIFEdipine XL (24 HR) 60 MG TAB.ER.24 PO SCH (10:03)
[2019-03-23] MEDS: Aspirin 81 MG TAB.CHEW PO SCH (10:06)
[2019-03-23] MEDS: Cholecalciferol (D-3) 1,000 UNIT (25MCG) TABLET PO SCH (10:06)
[2019-03-23] MEDS: Sennosides 8.6 MG TABLET PO SCH ×2 (10:07→22:08)
[2019-03-23] MEDS: cefTRIAXone 1,000 MG in Water for inj. (sterile) 10 ML IVP SCH (10:07)
[2019-03-23] MEDS: MethylPREDNISolone 40 MG/ML VIAL IVP SCH (10:08)
[2019-03-23] MEDS: Insulin LISPRO 300 UNITS/3 ML VIAL SQ SCH ×3 (10:09→17:22)
[2019-03-23] MEDS: Insulin DETEMIR 100 UNIT/ML X5UNITS SQ SCH ×2 (10:27→22:08)
--- NOTE | 2019-03-23 11:45 | Nephrology Progress Note ---
Date of Encounter: 03/23/19 Time of Encounter: 11:45 - Assessment and Plan (1) Acute kidney injury superimposed on CKD Current Visit: Yes Status: Acute Baseline appears to be 13-15. Hold IV Lasix today, reassess GFR in am before giving am dose. Provide albumin, but if creatinine continues to rise she may need dialysis early next week. Pt is agreeable. Avoid nephrotoxins and renal dose. Strict I/O Daily weights. Consult dietitian for education on low potassium diet (2) CHF exacerbation Current Visit: Yes Status: Acute Qualifiers: Heart failure type: diastolic Qualified Code(s): I50.33 - Acute on chronic diastolic (congestive) heart failure (3) Acute and chronic respiratory failure with hypoxia Current Visit: Yes Status: Acute Subjective Principal diagnosis: raymond/ckd Interval history: The patient was seen. She feels better. Still has some shortness of breath. She complains of feeling thirsty. Her review of systems is otherwise is stable. Objective - Vital Signs Vital signs: Vital Signs Temp Pulse Resp BP Pulse Ox 03/23/19 11:09 98.0 F 67 18 125/54 96 03/23/19 07:34 18 96 03/23/19 06:46 98.0 F 64 16 128/59 95 03/23/19 03:53 18 95 03/23/19 00:23 97.5 F L 64 43 121/54 98 03/22/19 23:26 22 99 03/22/19 21:46 98 03/22/19 19:56 18 98 03/22/19 19:49 97.9 F 67 22 110/67 98 03/22/19 16:18 17 91 03/22/19 16:08 98.7 F 67 18 113/52 93 03/22/19 11:48 98.3 F 69 20 122/77 95 Intake and Output 03/22/19 03/23/19 03/23/19 23:59 07:59 15:59 Intake Total 737 / 1607 0 / 120 120 / 120 Output Total 200 / 200 Balance 737 / 1607 -200 / -80 120 / -80 Intake: IV Fluids 260 / 260 Rocephin 1,000 MG In Water for 10 / 10 inj. (sterile) 10 ML @ 600 mls/ hr IVP DAILY [facility] Rx#:[id number] Zithromax 500 MG In 0.9 % 250 / 250 Sodium Chloride 250 ML @ 252 mls/hr IVPB Q24H [facility] Rx#: [id number] Oral 477 / 647 0 / 120 120 / 120 Output: Urine 200 / 200 Other: Meal Lunch Breakfast Percent of Meal Consumed 10% 50% # Voids 1 3 # Urine Diapers 1 Weight 86.2 kg Blood Glucose* 227 142 241 Patient Weight 03/23/19 23:59 Weight 86.2 kg - General Appearance General appearance: Present: well-developed, well-nourished EENT: Present: ATNC Cardiology: Present: regular rate Neurologic: Present: alert and oriented x3 Psychiatric: Present: mood/affect appropriate - Lab 03/23/19 04:24 03/23/19 04:24 Most recent lab results 03/23/19 04:24 Calcium 8.9 Phosphorus 4.2 Magnesium 2.1 Consult Discharge Plan - Plan Referrals: Alisha Paniagua, OFFSET PRESS OPERATOR [Primary Care Provider] -
--- NOTE | 2019-03-23 13:20 | Internal Med Progress Note ---
Hospitalist Progress Note - Encounter Date of Encounter: 03/23/19 Time of Encounter: 10:35 - Subjective Interval History: No major events overnight. Patient was seen this a.m. He denied fever, chills or night sweats. He has no nausea, vomiting or abdominal pain. Patient denied chest pain, shortness of breath or palpitation. - Exam Vitals: Temp Pulse Resp BP Pulse Ox 98.0 F 67 18 125/54 96 03/23/19 11:03/23/19 11:03/23/19 11:03/23/19 11:03/23/19 11:09 Exam: General: Patient is alert, oriented 3. No distress Head: Atraumatic, normal inspection, Eye: EOMI, PERRLA ENT: Mucous membranes moist. Neck: Normal inspection, no meningismus. Respiratory: No respiratory distress, rhonchi, or wheezes noted. Cardiovascular: Regular rate and regular rhythm. No murmurs, rubs, or gallops. GI: Soft, nondistended, normal bowel sounds. Extremities:No joint swelling, pedal edema, or tenderness noted. Neurological: Alert, oriented 3, no focal deficits. Psychiatric: normal affect, normal mood. Skin: Dry, intact, warm. Normal color. No rashes. - Assessment and Plan (1) CHF exacerbation Current Visit: Yes Status: Acute (2) Diabetes mellitus Current Visit: Yes Status: Acute (3) Hypothyroidism Current Visit: Yes Status: Acute Assessment and Plan: Continue home meds (4) Acute and chronic respiratory failure with hypoxia Current Visit: Yes Status: Acute (5) COPD exacerbation Current Visit: Yes Status: Acute (6) DVT prophylaxis Current Visit: Yes Status: Acute (7) Acute kidney injury superimposed on CKD Current Visit: Yes Status: Acute - Summary of Assessment and Plan Summary of Assessment and Plan: Ms. Peng is a 83 year old female with pmh of diastolic CHF, CKD stage IV atrial fibrilation not on anticoagulation, diabetes, hypothyroidism who was transferred from [place] for shortness of breath Acute hypoxic respiratory failure: currently on 3L. Likely from decompensated HF vs PNA vs COPD exacerbation. On Rocephine and Azithromycin. S/P thoracocentesis with 800ml fluids tapped. Cx are negative still. Lasix on hold due to worsening kidney's functions. Continue steroids and home inhalers for COPD. NIMA on CKD stage IV: Cr is worsening today, nephrology is following. Likely she may need an HD soon. Check BMP tomorrow. Decompensated hf: Lasix on Hold, now on 3 L of O2. Echo 08/28: EF 50%, mild DD, zqbz-yc-[id number] TR, mild , moderate pulmonary hypertension. CHECK limited Echo. Atrial fibrillation: Not on antibiotic medication. Continue amiodarone, aspirin, beta blockers. IDDM: Continue insulin, Accu-Cheks and sliding coverage DVT prophylaxis: Subcutaneous cutaneous heparin. - Time Spent with Patient Total time spent is greater than 50% in coordination of care (as documented) at patient's floor/unit and/or counseling patient: Internal Medicine: Result - Labs CBC & Chem 7: 03/23/19 04:24 03/23/19 04:24 Labs: Short CBC 03/23/19 Range/Units 04:24 WBC 4.3 (4.3-11.1) K/mcL Hgb 8.4 L (11.5-15.4) g/dL Hct 26.0 L (35.3-44.9) % Plt Count 208 (140-400) K/mcL Neutrophils # 3.7 (1.6-8.9) K/mcL BMP 03/23/19 04:24 Sodium 138 Potassium 4.4 Chloride 99 Carbon Dioxide 24 BUN 80 H Creatinine 4.43 H Glucose 133 H Calcium 8.9 - ABG Interpretation ABG results: ABG ABG pH 7.46 pH Units (7.32-7.45) H 03/20/19 14:36 ABG pCO2 40 mmHg (35-45) 03/20/19 14:36 ABG pO2 62 mmHg (85-104) L 03/20/19 14:36 ABG O2 Saturation 93 % (95-98) L 03/20/19 14:36 Consult Discharge Plan - Plan Referrals: Alisha Paniagua, MARKETING AND PROMOTIONS MANAGER [Primary Care Provider] - (1) CHF exacerbation Qualifiers: Heart failure type: diastolic Qualified Code(s): I50.33 - Acute on chronic diastolic (congestive) heart failure (2) Diabetes mellitus Qualifiers: Diabetes mellitus type: type 2 Diabetes mellitus ferry terminal supervisor insulin use: with penitentiary use Diabetes mellitus complication status: without complication Qualified Code(s): E11.9 - Type 2 diabetes mellitus without complications; Z79.4 - penitentiary (current) use of insulin (3) Hypothyroidism Qualifiers: Hypothyroidism type: unspecified Qualified Code(s): E03.9 - Hypothyroidism, unspecified
[2019-03-23] MEDS: Azithromycin 500 MG in 0.9 % Sodium Chloride 250 ML IVPB SCH (17:14)
[2019-03-23 22:41] LABS: Bilirubin,Urine Negative (Negative); Blood,Urine Large (Negative); Clarity,Urine Turbid (Clear); Color,Urine Dark Yellow (Yellow); Glucose,Urine (UA) Normal (Normal); Ketones,Urine Negative (Negative); Leukocyte Esterase,Urine Moderate (Negative); Nitrite,Urine Negative (Negative); PH,Urine 8.5 pH Units (5.0-8.0); Protein,Urine >=300 mg/dL (Neg-Trace); Specific Gravity,Urine 1.017 (1.010-1.025); Urobilinogen,Urine Normal (Normal)
[2019-03-23 22:43] LABS: Bacteria,Urine Many per hpf (None-Few); Squamous Epithelial Cell,Urine Many per lpf (None-Few); WBC,Urine TNTC per hpf (0-3)
[2019-03-23 23:09] LABS: Amorphous Sediment,Urine Present (Few); RBC,Urine TNTC per hpf (0-3); Triple Phosphate Crystal,Urine Present
[2019-03-23 23:10] LABS: Hyaline Casts,Urine Moderate per lpf (None-Few)
[2019-03-23 23:11] LABS: Calcium Oxalate Crystals,Urine Present
[2019-03-23] MEDS: Albumin 25% 25gram/100mL 25 GM/100 ML IV.SOLN IVPB SCH (23:39)
[2019-03-24] MEDS: Ipratropium/Albuterol Neb 3 ML IH SCH ×5 (03:41→19:55)
[2019-03-24 05:37] LABS: Hematocrit 26.4 % (35.3-44.9); Hemoglobin 8.5 g/dL (11.5-15.4); Immature Granulocytes % 0.3 % (0-4); Lymphocytes # 0.6 K/mcL (0.6-4.6); Lymphocytes % 10.3 %; Mean Corpuscular HGB Conc 32.2 g/dL (31.6-35.5); Mean Corpuscular Hemoglobin 34.1 pg (28.0-33.3); Mean Platelet Volume 11.1 fL (9.4-12.4); Monocytes # 0.5 K/mcL (0.0-1.3); Monocytes % 8.1 %; Neutrophils # 4.8 K/mcL (1.6-8.9); Nucleated Red Blood Cells 0.3 /100 WBC (0); Platelet Count 208 K/mcL (140-400); Red Blood Count 2.49 M/mcL (3.82-4.97); Red Cell Distribution Width 16.6 % (11.5-14.5); Segmented Neutrophils % 81.3 %; White Blood Count 5.9 K/mcL (4.3-11.1)
[2019-03-24 05:57] LABS: Calcium 9.3 mg/dL (8.6-10.3); Magnesium 2.2 mg/dL (1.6-2.6); Phosphorous 4.6 mg/dL (2.7-4.5)
[2019-03-24] MEDS: *HR* Heparin 5,000 UNIT/ML VIAL SQ SCH ×2 (06:11→17:00)
[2019-03-24] MEDS: Budesonide/Formoterol 160/4.5 1 PUFF INH IH SCH ×2 (07:59→19:55)
[2019-03-24] MEDS: cefTRIAXone 1,000 MG in Water for inj. (sterile) 10 ML IVP SCH (08:14)
[2019-03-24] MEDS: Albumin 25% 25gram/100mL 25 GM/100 ML IV.SOLN IVPB SCH ×2 (08:15→16:57)
[2019-03-24] MEDS: *HR* Amiodarone 200 MG TABLET PO SCH (08:18)
[2019-03-24] MEDS: Sennosides 8.6 MG TABLET PO SCH ×2 (08:18→21:51)
[2019-03-24] MEDS: NIFEdipine XL (24 HR) 60 MG TAB.ER.24 PO SCH (08:19)
[2019-03-24] MEDS: Isosorbide MONOnitrate (24 HR) 60 MG TAB.ER.24H PO SCH (08:19)
[2019-03-24] MEDS: Cholecalciferol (D-3) 1,000 UNIT (25MCG) TABLET PO SCH (08:19)
[2019-03-24] MEDS: Insulin LISPRO 300 UNITS/3 ML VIAL SQ SCH ×4 (08:19→21:51)
[2019-03-24] MEDS: Aspirin 81 MG TAB.CHEW PO SCH (08:19)
[2019-03-24] MEDS: Insulin DETEMIR 100 UNIT/ML X5UNITS SQ SCH ×2 (08:41→21:51)
[2019-03-24] MEDS ORDERED: MethylPREDNISolone 40 MG/ML VIAL IVP SCH (09:00)
--- NOTE | 2019-03-24 09:58 | Nephrology Progress Note ---
Date of Encounter: 03/24/19 Time of Encounter: 09:58 - Assessment and Plan (1) Acute kidney injury superimposed on CKD Current Visit: Yes Status: Acute Baseline appears to be 13-15. Hold IV Lasix today, reassess GFR in am before giving am dose. Provide albumin, but if creatinine continues to rise she may need dialysis early next week. Pt is agreeable. Avoid nephrotoxins and renal dose. Strict I/O Daily weights. Consult dietitian for education on low potassium diet (2) CHF exacerbation Current Visit: Yes Status: Acute Qualifiers: Heart failure type: diastolic Qualified Code(s): I50.33 - Acute on chronic diastolic (congestive) heart failure (3) Acute and chronic respiratory failure with hypoxia Current Visit: Yes Status: Acute Subjective Principal diagnosis: raymond/ckd Interval history: The patient was seen. She states she has a rough night. She denies pacific pain. She denies worsening shortness of breath. Her review of systems is otherwise is stable. Objective - Vital Signs Vital signs: Vital Signs Temp Pulse Resp BP Pulse Ox 03/24/19 07:59 16 96 03/24/19 07:33 97.9 F 68 18 133/67 94 03/24/19 04:14 98.2 F 69 24 117/55 92 03/24/19 03:43 32 92 03/23/19 23:03 16 95 03/23/19 22:31 98 03/23/19 20:10 20 98 03/23/19 19:24 98.3 F 63 20 125/61 98 03/23/19 15:58 98.1 F 65 17 125/56 98 03/23/19 15:19 16 96 03/23/19 11:36 16 98 03/23/19 11:09 98.0 F 67 18 125/54 96 Intake and Output 03/23/19 03/24/19 03/24/19 23:59 07:59 15:59 Intake Total 740 / 1100 100 / 340 240 / 340 Output Total 250 / 550 Balance 490 / 550 100 / 340 240 / 340 Intake: IV Fluids 260 / 260 100 / 100 Rocephin 1,000 MG In Water for 10 / 10 inj. (sterile) 10 ML @ 600 mls/ hr IVP DAILY ANNY Rx#:[id number] Flexbumin 25 gm In 100 ml @ 60 100 / 100 mls/hr IVPB Q8HR ANNY Rx#: [id number] Zithromax 500 MG In 0.9 % 250 / 250 Sodium Chloride 250 ML @ 252 mls/hr IVPB Q24H ANNY Rx#: [id number] Oral 480 / 840 240 / 240 Output: Catheter 250 / 250 Other: Meal Dinner Breakfast Percent of Meal Consumed 50% 50% Blood Glucose* 225 209 - General Appearance General appearance: Present: well-developed, well-nourished EENT: Present: ATNC Neck: Present: supple Cardiology: Present: regular rate Integumentary: Present: warm and dry Neurologic: Present: alert and oriented x3 Musculoskeletal: Present: no cyanosis Psychiatric: Present: mood/affect appropriate - Lab 03/24/19 04:47 03/24/19 04:47 Most recent lab results 03/24/19 04:47 Calcium 9.3 Phosphorus 4.6 H Magnesium 2.2 Consult Discharge Plan - Plan Referrals: Alisha Paniagua FARM MACHINE TENDER [Primary Care Provider] -
--- NOTE | 2019-03-24 11:08 | Internal Med Progress Note ---
Hospitalist Progress Note - Encounter Date of Encounter: 03/24/19 Time of Encounter: 10:25 - Subjective Interval History: No major events overnight. Patient was seen this a.m. sHe denied fever, chills or night sweats. sHe has no nausea, vomiting or abdominal pain. Patient denied chest pain, shortness of breath or palpitation. - Exam Vitals: Temp Pulse Resp BP Pulse Ox 97.9 F 68 16 133/67 96 03/24/19 07:33 03/24/19 07:33 03/24/19 07:59 03/24/19 07:03/24/19 07:59 Exam: General: Patient is alert, oriented 3. No distress Head: Atraumatic, normal inspection, Eye: EOMI, PERRLA ENT: Mucous membranes moist. Neck: Normal inspection, no meningismus. Respiratory: Right basilar crackles. Cardiovascular: Regular rate and regular rhythm. No murmurs, rubs, or gallops. GI: Soft, nondistended, normal bowel sounds. Extremities:No joint swelling, pedal edema, or tenderness noted. Neurological: Alert, oriented 3, no focal deficits. Psychiatric: normal affect, normal mood. Skin: Dry, intact, warm. Normal color. No rashes. - Assessment and Plan (1) CHF exacerbation Current Visit: Yes Status: Acute (2) Diabetes mellitus Current Visit: Yes Status: Acute (3) Hypothyroidism Current Visit: Yes Status: Acute (4) Acute and chronic respiratory failure with hypoxia Current Visit: Yes Status: Acute (5) COPD exacerbation Current Visit: Yes Status: Acute (6) DVT prophylaxis Current Visit: Yes Status: Acute (7) Acute kidney injury superimposed on CKD Current Visit: Yes Status: Acute (8) Pneumonia Current Visit: Yes Status: Suspected - Summary of Assessment and Plan Summary of Assessment and Plan: Ms. Peng is a 83 year old female with pmh of diastolic CHF, CKD stage IV atrial fibrilation not on anticoagulation, diabetes, hypothyroidism who was transferred from [place] for shortness of breath Acute hypoxic respiratory failure: was on 3L, weaned down to RA this AM. Likely from decompensated HF vs PNA vs COPD exacerbation. On Rocephine day5/7, finished Azithromycin, MRSA is negative. S/P thoracocentesis with 800ml fluids tapped. Cx are negative still. Lasix on hold due to worsening kidney's functions. wean off steroids and continue home inhalers for COPD. SHe is afebrile and HDS. NIMA on CKD stage IV: Cr is worsening today, nephrology is following. Likely she may need an HD soon. Check BMP tomorrow. Decompensated hf: Lasix on Hold. Echo 08/28: EF 50%, mild DD, cugm-xz-bzswansb T R, mild , moderate pulmonary hypertension. CHECK limited Echo. Atrial fibrillation: Not on AC due to previous GIB. Continue amiodarone, aspirin, beta blockers. IDDM: Continue insulin, Accu-Cheks and sliding coverage DVT prophylaxis: Subcutaneous cutaneous heparin. - Time Spent with Patient Total time spent is greater than 50% in coordination of care (as documented) at patient's floor/unit and/or counseling patient: Plan of Care Discussed with: patient Internal Medicine: Result - Labs CBC & Chem 7: 03/24/19 04:47 03/24/19 04:47 Labs: Short CBC 03/24/19 Range/Units 04:47 WBC 5.9 (4.3-11.1) K/mcL Hgb 8.5 L (11.5-15.4) g/dL Hct 26.4 L (35.3-44.9) % Plt Count 208 (140-400) K/mcL Neutrophils # 4.8 (1.6-8.9) K/mcL BMP 03/24/19 04:47 Sodium 139 Potassium 5.0 Chloride 96 L Carbon Dioxide 27 BUN 97 H Creatinine 4.86 H Glucose 265 H Calcium 9.3 Urine 03/23/19 Range/Units 22:25 Urine Color Dark Yellow (Yellow) Urine Clarity Turbid A (Clear) Urine pH 8.5 H (5.0-8.0) pH Units Ur Specific [place] 1.017 (1.010-1.025) Urine Protein >=300 H (Neg-Trace) mg/dL Urine Glucose (UA) Normal (Normal) mg/dL - ABG Interpretation ABG results: ABG ABG pH 7.46 pH Units (7.32-7.45) H 03/20/19 14:36 ABG pCO2 40 mmHg (35-45) 03/20/19 14:36 ABG pO2 62 mmHg (85-104) L 03/20/19 14:36 ABG O2 Saturation 93 % (95-98) L 03/20/19 14:36 Consult Discharge Plan - Plan Referrals: Alisha Paniagua CNP [Primary Care Provider] - (1) CHF exacerbation Qualifiers: Heart failure type: diastolic Qualified Code(s): I50.33 - Acute on chronic diastolic (congestive) heart failure (2) Diabetes mellitus Qualifiers: Diabetes mellitus type: type 2 Diabetes mellitus rat exterminator insulin use: with rat exterminator use Diabetes mellitus complication status: without complication Qualified Code(s): E11.9 - Type 2 diabetes mellitus without complications; Z79.4 - group home (current) use of insulin (3) Hypothyroidism Qualifiers: Hypothyroidism type: unspecified Qualified Code(s): E03.9 - Hypothyroidism, unspecified (8) Pneumonia Qualifiers: Pneumonia type: due to unspecified organism Laterality: bilateral Lung location: lower lobe of lung Qualified Code(s): J18.1 - Lobar pneumonia, unspecified organism
[2019-03-24] MEDS: Piperacillin/Tazobactam 3.375 GM in 0.9 % Sodium Chloride Mini Bag 100 ML IVPB SCH (18:40)
[2019-03-25] MEDS: Ipratropium/Albuterol Neb 3 ML IH SCH ×6 (00:06→20:05)
[2019-03-25 00:18] LABS: Bilirubin,Urine Negative (Negative); Blood,Urine Large (Negative); Clarity,Urine Turbid (Clear); Color,Urine Dark Yellow (Yellow); Glucose,Urine (UA) 100 mg/dL (Normal); Ketones,Urine Negative (Negative); Leukocyte Esterase,Urine Large (Negative); Nitrite,Urine Negative (Negative); Protein,Urine >=300 mg/dL (Neg-Trace); Specific Gravity,Urine 1.021 (1.010-1.025); Urobilinogen,Urine Normal (Normal)
[2019-03-25 00:19] LABS: Bacteria,Urine Few per hpf (None-Few); Hyaline Casts,Urine Moderate per lpf (None-Few); RBC,Urine TNTC per hpf (0-3); Squamous Epithelial Cell,Urine Many per lpf (None-Few); WBC,Urine TNTC per hpf (0-3)
[2019-03-25 03:52] LABS: Calcium 9.3 mg/dL (8.6-10.3); Potassium 5.2 mEq/L (3.5-5.1)
[2019-03-25] MEDS: *HR* Heparin 5,000 UNIT/ML VIAL SQ SCH ×2 (06:10→18:08)
[2019-03-25] MEDS: Piperacillin/Tazobactam 3.375 GM in 0.9 % Sodium Chloride Mini Bag 100 ML IVPB SCH ×2 (06:11→18:06)
[2019-03-25] MEDS: Budesonide/Formoterol 160/4.5 1 PUFF INH IH SCH ×2 (07:28→20:05)
[2019-03-25] MEDS: Insulin LISPRO 300 UNITS/3 ML VIAL SQ SCH ×4 (08:01→19:56)
[2019-03-25] MEDS: Cholecalciferol (D-3) 1,000 UNIT (25MCG) TABLET PO SCH (08:15)
[2019-03-25] MEDS: NIFEdipine XL (24 HR) 60 MG TAB.ER.24 PO SCH (08:15)
[2019-03-25] MEDS: Sennosides 8.6 MG TABLET PO SCH ×2 (08:15→19:55)
[2019-03-25] MEDS: Aspirin 81 MG TAB.CHEW PO SCH (08:16)
[2019-03-25] MEDS: Isosorbide MONOnitrate (24 HR) 60 MG TAB.ER.24H PO SCH (08:16)
[2019-03-25] MEDS: *HR* Amiodarone 200 MG TABLET PO SCH (08:16)
[2019-03-25] MEDS: Insulin DETEMIR 100 UNIT/ML X5UNITS SQ SCH ×2 (08:16→19:56)
[2019-03-25] MEDS ORDERED: predniSONE 20 MG TABLET PO SCH (09:00)
[2019-03-25 10:26] LABS: INR 1.1; Prothrombin Time 12.3 Seconds (9.4-12.1)
[2019-03-25] MEDS: *HR* HYDROcodone/Acet 5/325 mg TABLET PO PRN (10:51)
--- NOTE | 2019-03-25 12:13 | Internal Med Progress Note ---
Hospitalist Progress Note - Encounter Date of Encounter: 03/25/19 Time of Encounter: 09:25 - Subjective Interval History: Patient was seen this morning. She denied chest pain or shortness of breath. She has no palpitation, nausea/vomiting or abdominal pain. She is complaining about tailbone pain that is chronic for her. - Exam Vitals: Temp Pulse Resp BP Pulse Ox 98 F 63 22 135/60 98 03/25/19 07:38 03/25/19 07:38 03/25/19 08:30 03/25/19 07:38 03/25/19 07:38 Exam: General: Patient is alert, oriented 3. No distress Head: Atraumatic, normal inspection, Eye: EOMI, PERRLA ENT: Mucous membranes moist. Neck: Normal inspection, no meningismus. Respiratory: Right basilar crackles. Cardiovascular: Regular rate and regular rhythm. No murmurs, rubs, or gallops. GI: Soft, nondistended, normal bowel sounds. Extremities:No joint swelling, pedal edema, or tenderness noted. Neurological: Alert, oriented 3, no focal deficits. Psychiatric: normal affect, normal mood. Skin: Dry, intact, warm. Normal color. No rashes. - Assessment and Plan (1) CHF exacerbation Current Visit: Yes Status: Acute (2) Diabetes mellitus Current Visit: Yes Status: Acute (3) Hypothyroidism Current Visit: Yes Status: Acute (4) Acute and chronic respiratory failure with hypoxia Current Visit: Yes Status: Acute (5) COPD exacerbation Current Visit: Yes Status: Acute (6) DVT prophylaxis Current Visit: Yes Status: Acute (7) Acute kidney injury superimposed on CKD Current Visit: Yes Status: Acute (8) Pneumonia Current Visit: Yes Status: Suspected - Summary of Assessment and Plan Summary of Assessment and Plan: Ms. Peng is a 83 year old female with pmh of diastolic CHF, CKD stage IV atrial fibrilation not on anticoagulation, diabetes, hypothyroidism who was transferred from [place] for shortness of breath Acute hypoxic respiratory failure: was on 3L, weaned down to RA this AM. Likely from decompensated HF vs PNA vs COPD exacerbation. On Rocephine day5/7, finished Azithromycin, MRSA is negative. S/P thoracocentesis with 800ml fluids tapped. Cx are negative still. Lasix on hold due to worsening kidney's functions. wean off steroids and continue home inhalers for COPD. SHe is afebrile and HDS. NIMA on CKD stage IV: Oliguria, Cr is worsening today, nephrology is following. plans for TDC today, likely HD as well. Hyperkalemia: 2/2 above. Will check BMp tomorrow. HD today most likely. Decompensated HF: Echo 08/28: EF 50%, mild DD, qvpo-do-deuqyuwr TR, mild , moderate pulmonary hypertension. limited Echo with no changes, CXR yesterday with woresning edema. Atrial fibrillation: Not on AC due to previous GIB. Continue amiodarone, aspirin, beta blockers. IDDM: Continue insulin, Accu-Cheks and sliding coverage DVT prophylaxis: Subcutaneous cutaneous heparin. - Time Spent with Patient Total time spent is greater than 50% in coordination of care (as documented) at patient's floor/unit and/or counseling patient: Plan of Care Discussed with: patient Internal Medicine: Result - Labs CBC & Chem 7: 03/24/19 04:47 03/25/19 02:42 Labs: BMP 03/25/19 02:42 Sodium 136 Potassium 5.2 H Chloride 95 L Carbon Dioxide 27 BUN 105 H Creatinine 4.95 H Glucose 216 H Calcium 9.3 Urine 03/24/19 Range/Units 23:40 Urine Color Dark Yellow (Yellow) Urine Clarity Turbid A (Clear) Urine pH 8.0 (5.0-8.0) pH Units Ur Specific [place] 1.021 (1.010-1.025) Urine Protein >=300 H (Neg-Trace) mg/dL Urine Glucose (UA) 100 H (Normal) mg/dL - ABG Interpretation ABG results: ABG ABG pH 7.46 pH Units (7.32-7.45) H 03/20/19 14:36 ABG pCO2 40 mmHg (35-45) 03/20/19 14:36 ABG pO2 62 mmHg (85-104) L 03/20/19 14:36 ABG O2 Saturation 93 % (95-98) L 03/20/19 14:36 PT/INR, D-dimer PT 12.3 Seconds (9.4-12.1) H 03/25/19 09:50 - Impressions Impressions Chest X-Ray 03/24/19 14:28 IMPRESSION: Small pleural effusions and worsening bibasilar opacities especially on the right. Findings likely related to progressive edema or infection D/ / Diana Harvey MD / Diana Harvey MD Interpreting Provider: Diana Harvey MD Consult Discharge Plan - Plan Referrals: Alisha Paniagua [employer] SALES REPRESENTATIVE [Primary Care Provider] - (1) CHF exacerbation Qualifiers: Heart failure type: diastolic Qualified Code(s): I50.33 - Acute on chronic diastolic (congestive) heart failure (2) Diabetes mellitus Qualifiers: Diabetes mellitus type: type 2 Diabetes mellitus usp insulin use: with usp use Diabetes mellitus complication status: without complication Qualified Code(s): E11.9 - Type 2 diabetes mellitus without complications; Z79.4 - [facility] (current) use of insulin (3) Hypothyroidism Qualifiers: Hypothyroidism type: unspecified Qualified Code(s): E03.9 - Hypothyroidism, unspecified (8) Pneumonia Qualifiers: Pneumonia type: due to unspecified organism Laterality: bilateral Lung location: lower lobe of lung Qualified Code(s): J18.1 - Lobar pneumonia, unspecified organism
--- NOTE | 2019-03-25 13:05 | Nephrology Progress Note ---
Date of Encounter: 03/25/19 Time of Encounter: 13:02 - Assessment and Plan (1) Acute kidney injury superimposed on CKD Current Visit: Yes Status: Acute Baseline appears to be 13-15. Continue to hold lasix. IR consulted for tunneled HD line to be placed today, if not able to please place tomorrow morning. NPO now, if unable to place line today, please change back to renal diet, and make NPO at midnight. Pt is agreeable and will most likely start HD tomorrow. Avoid nephrotoxins and renal dose. Strict I/O Daily weights. Renal diet when able to eat. (2) CHF exacerbation Current Visit: Yes Status: Acute 1.5 liter fluid restriction. Per primary. Qualifiers: Heart failure type: diastolic Qualified Code(s): I50.33 - Acute on chronic diastolic (congestive) heart failure (3) Acute and chronic respiratory failure with hypoxia Current Visit: Yes Status: Acute Per primary, continue supplemental oxygen. (4) Pain, coccyx Current Visit: Yes Status: Acute Patient states she has a chronic decubitus ulcer. Donut pillow ordered for patient to sit on, spoke with central supply, they will deliver to the room. Subjective Principal diagnosis: raymond/ckd Interval history: Pt seen and examined, quvwgsys-[id number] bedside. Denies chest pain or shortness of breath. Denies nausea, vomiting or diarrhea. Overall she feels fatigued. Objective - Vital Signs Vital signs: Vital Signs Temp Pulse Resp BP Pulse Ox 03/25/19 08:30 22 03/25/19 07:38 98 F 63 30 135/60 98 03/25/19 07:28 18 98 03/25/19 04:42 98 F 64 24 105/90 97 03/25/19 00:29 29 100 03/24/19 21:50 99 03/24/19 20:15 97.9 F 66 20 127/52 99 03/24/19 19:57 19 94 03/24/19 15:57 18 93 03/24/19 15:49 98.4 F 66 16 127/62 93 Intake and Output 03/24/19 03/25/19 03/25/19 23:59 07:59 15:59 Intake Total 630 / 1430 340 / 340 Output Total 190 / 190 Balance 440 / 1240 340 / 340 Intake: IV Fluids 210 / 410 100 / 100 Rocephin 1,000 MG In Water for 10 inj. (sterile) 10 ML @ 600 mls/ hr IVP DAILY ANNY Rx#:[id number] Flexbumin 25 gm In 100 ml @ 60 100 / 300 mls/hr IVPB Q8HR ANNY Rx#: [id number] Zosyn 3.375 GM In 0.9 % Sodium 100 / 100 100 / 100 Chloride (Mini-Bag +) 100 ML @ 25 mls/hr IVPB Q12HR ANNY Rx#: [id number] Oral 420 / 1020 240 / 240 Output: Catheter 190 / 190 Other: Meal Dinner Breakfast Percent of Meal Consumed 100% 25% Weight 88 kg Blood Glucose* 287 109 109 Patient Weight 03/25/19 23:59 Weight 88 kg - General Appearance General appearance: Present: chronically ill, frail EENT: Present: ATNC, hearing intact, vision intact Neck: Present: supple Respiratory: Present: clear Cardiology: Present: edema (trace bilat lower extremity edema.), normal S1, normal S2 Gastrointestinal: Present: normoactive bowel sounds, no tenderness, no guarding Integumentary: Present: no rash, warm and dry Neurologic: Present: alert and oriented x3 Musculoskeletal: Present: no deformities, no erythema Psychiatric: Present: mood/affect appropriate, cooperative - Lab 03/24/19 04:47 03/25/19 02:42 Most recent lab results 03/25/19 02:42 Calcium 9.3 Consult Discharge Plan - Plan Referrals: Alisha Paniagua, MANAGER [employer] BUSINESS [Primary Care Provider] -
[2019-03-25] MEDS ORDERED: Heparin 1,000 UNITS/500 mL 500 ML ONE (14:12)
[2019-03-25] MEDS ORDERED: 0.9 % Sodium Chloride 500 ML ONE (14:30)
[2019-03-25] MEDS ORDERED: *HR* FentaNYL (PF) 100 MCG/2 ML VIAL IVP ONE (14:33)
[2019-03-25] MEDS ORDERED: *HR* Midazolam HCl 2 MG/2 ML VIAL IVP ONE (14:34)
[2019-03-25] MEDS ORDERED: *HR* FentaNYL (PF) 100 MCG/2 ML VIAL ONE (14:38)
[2019-03-25] MEDS ORDERED: *HR* Midazolam HCl 2 MG/2 ML VIAL ONE (14:38)
[2019-03-25] MEDS ORDERED: *HR* Heparin 5,000 UNIT/ML VIAL ONE (14:50)
--- NOTE | 2019-03-25 14:53 | IR Procedure Note ---
Date of procedure: 03/25/19 Consent Obtained: Written consent Timeout: Correct patient and procedure verified, Correct site verified, Time out performed, Skin prep completed Local anesthetic: Lidocaine 1% Was there an assistant sales manager present: No Estimated blood loss (cc): 1 Complications: None; Tolerated procedure well Indications: ARF on CKD Procedure Performed: Tunneled HD catheter placement. Site/Technique: RIJV used for access. Catheter ok to use. Results/Findings (any specimens removed): Working well. No immediate complications. Post Procedure Treatment Plan: Monitoring in pts room. Specimen: na
[2019-03-26] MEDS: Ipratropium/Albuterol Neb 3 ML IH SCH ×7 (00:09→23:49)
[2019-03-26 03:49] LABS: Calcium 9.5 mg/dL (8.6-10.3); Potassium 5.3 mEq/L (3.5-5.1)
[2019-03-26 03:53] LABS: Hematocrit 26.2 % (35.3-44.9); Hemoglobin 8.5 g/dL (11.5-15.4); Mean Corpuscular HGB Conc 32.4 g/dL (31.6-35.5); Mean Corpuscular Hemoglobin 34.3 pg (28.0-33.3); Mean Corpuscular Volume 105.6 fL (83.0-100.0); Mean Platelet Volume 11.6 fL (9.4-12.4); Platelet Count 181 K/mcL (140-400); Red Blood Count 2.48 M/mcL (3.82-4.97); Red Cell Distribution Width 16.1 % (11.5-14.5); White Blood Count 5.9 K/mcL (4.3-11.1)
[2019-03-26] MEDS: *HR* Heparin 5,000 UNIT/ML VIAL SQ SCH ×2 (05:42→17:22)
[2019-03-26] MEDS: Piperacillin/Tazobactam 3.375 GM in 0.9 % Sodium Chloride Mini Bag 100 ML IVPB SCH ×2 (05:43→17:22)
[2019-03-26] MEDS: Budesonide/Formoterol 160/4.5 1 PUFF INH IH SCH ×2 (07:14→20:01)
[2019-03-26] MEDS: *HR* Amiodarone 200 MG TABLET PO SCH (07:52)
[2019-03-26] MEDS: NIFEdipine XL (24 HR) 60 MG TAB.ER.24 PO SCH (07:52)
[2019-03-26] MEDS: Cholecalciferol (D-3) 1,000 UNIT (25MCG) TABLET PO SCH (07:52)
[2019-03-26] MEDS: Insulin LISPRO 300 UNITS/3 ML VIAL SQ SCH ×4 (07:52→20:39)
[2019-03-26] MEDS: Sennosides 8.6 MG TABLET PO SCH ×2 (07:52→20:38)
[2019-03-26] MEDS: Isosorbide MONOnitrate (24 HR) 60 MG TAB.ER.24H PO SCH (07:52)
[2019-03-26] MEDS: Aspirin 81 MG TAB.CHEW PO SCH (07:53)
[2019-03-26] MEDS ORDERED: 0.9 % Sodium Chloride 250 ML IVC PRN (08:49)
[2019-03-26] MEDS ORDERED: *HR* Heparin 10,000 UNIT/10 ML VIAL IV PRN (08:49)
[2019-03-26] MEDS ORDERED: 0.9 % Sodium Chloride 1,000 ML PRIME SCH (09:00)
[2019-03-26] MEDS ORDERED: Insulin DETEMIR 100 UNIT/ML X5UNITS SQ SCH (09:00)
[2019-03-26 09:14] LABS: Hepatitis B Surface Antibody 333.82 mIU/mL
[2019-03-26 09:25] LABS: Hepatitis B Surface Antigen Nonreactive (Nonreactive)
--- NOTE | 2019-03-26 12:01 | Internal Med Progress Note ---
Hospitalist Progress Note - Encounter Date of Encounter: 03/26/19 Time of Encounter: 09:30 - Subjective Interval History: No major events overnight. Patient was seen this a.m. sHe denied fever, chills or night sweats. sHe has no nausea, vomiting or abdominal pain. Patient denied chest pain, shortness of breath or palpitation. - Exam Vitals: Temp Pulse Resp BP Pulse Ox 97.8 F 63 16 133/56 90 03/26/19 10:45 03/26/19 07:11 03/26/19 10:45 03/26/19 11:00 03/26/19 07:14 Exam: General: Patient is alert, oriented 3. No distress Head: Atraumatic, normal inspection, Eye: EOMI, PERRLA ENT: Mucous membranes moist. Neck: Normal inspection, Right TDC Respiratory: Right basilar crackles. Cardiovascular: Regular rate and regular rhythm. No murmurs, rubs, or gallops. GI: Soft, nondistended, normal bowel sounds. Extremities:No joint swelling, pedal edema, or tenderness noted. Neurological: Alert, oriented 3, no focal deficits. Psychiatric: normal affect, normal mood. Skin: Dry, intact, warm. Normal color. No rashes. - Assessment and Plan (1) CHF exacerbation Current Visit: Yes Status: Acute (2) Diabetes mellitus Current Visit: Yes Status: Acute (3) Hypothyroidism Current Visit: Yes Status: Chronic (4) Acute and chronic respiratory failure with hypoxia Current Visit: Yes Status: Resolved (5) COPD exacerbation Current Visit: Yes Status: Chronic (6) DVT prophylaxis Current Visit: Yes Status: Acute (7) Acute kidney injury superimposed on CKD Current Visit: Yes Status: Acute (8) Pneumonia Current Visit: Yes Status: Suspected (9) Pressure injury of coccygeal region, stage 2 Current Visit: Yes Status: Acute - Summary of Assessment and Plan Summary of Assessment and Plan: Ms. Peng is a 83 year old female with pmh of diastolic CHF, CKD stage IV atrial fibrilation not on anticoagulation, diabetes, hypothyroidism who was transferred from [place] for shortness of breath Acute hypoxic respiratory failure: on 3L. Likely from decompensated HF vs PNA vs COPD exacerbation. On zosyn day 2/, finished Azithromycin, MRSA is negative. S/P thoracocentesis with 800ml fluids tapped. Cx are negative still. off steroids and continue home inhalers for COPD. SHe is afebrile and HDS. NIMA on CKD stage IV: Oliguria, Cr is worsening today, nephrology is following. TDC placed, likely HD today. UCx is growing GPC. Continue Zosyn. Hyperkalemia: 2/2 above. Will check BMp tomorrow. HD today most likely. Decompensated HF: Echo 08/28: EF 50%, mild DD, ierk-[id number] TR, mild , moderate pulmonary hypertension. limited Echo with no changes, CXR 03/24 with woresning edema. Atrial fibrillation: Not on AC due to previous GIB. Continue amiodarone, aspirin, beta blockers. IDDM: Continue insulin, Accu-Cheks and sliding coverage DVT prophylaxis: Subcutaneous cutaneous heparin. - Time Spent with Patient Total time spent is greater than 50% in coordination of care (as documented) at patient's floor/unit and/or counseling patient: Plan of Care Discussed with: patient Internal Medicine: Result - Labs CBC & Chem 7: 03/26/19 02:17 03/26/19 02:17 Labs: Short CBC 03/26/19 Range/Units 02:17 WBC 5.9 (4.3-11.1) K/mcL Hgb 8.5 L (11.5-15.4) g/dL Hct 26.2 L (35.3-44.9) % Plt Count 181 (140-400) K/mcL BMP 03/26/19 02:17 Sodium 137 Potassium 5.3 H Chloride 97 L Carbon Dioxide 23 BUN 110 H Creatinine 5.26 H Glucose 108 H Calcium 9.5 - ABG Interpretation ABG results: ABG ABG pH 7.46 pH Units (7.32-7.45) H 03/20/19 14:36 ABG pCO2 40 mmHg (35-45) 03/20/19 14:36 ABG pO2 62 mmHg (85-104) L 03/20/19 14:36 ABG O2 Saturation 93 % (95-98) L 03/20/19 14:36 PT/INR, D-dimer PT 12.3 Seconds (9.4-12.1) H 03/25/19 09:50 - Impressions Impressions Guidance Ultrasound 03/25/19 15:14 IMPRESSION: Successful ultrasound and fluoroscopy guided tunneled catheter placement . D/ / Zay Porras MD / Zay Porras MD Interpreting Provider: Zay Porras MD Insertion Tunneled Catheter 03/25/19 15:14 IMPRESSION: Successful ultrasound and fluoroscopy guided tunneled catheter placement . D/ / Zay Porras MD / Zay Porras MD Interpreting Provider: Zay Porras MD Consult Discharge Plan - Plan Referrals: Alisha Paniagua CNP [Primary Care Provider] - _ (1) CHF exacerbation Qualifiers: Heart failure type: diastolic Qualified Code(s): I50.33 - Acute on chronic diastolic (congestive) heart failure (2) Diabetes mellitus Qualifiers: Diabetes mellitus type: type 2 Diabetes mellitus custodial insulin use: with custodial use Diabetes mellitus complication status: without complication Qualified Code(s): E11.9 - Type 2 diabetes mellitus without complications; Z79.4 - MCC (current) use of insulin (3) Hypothyroidism Qualifiers: Hypothyroidism type: unspecified Qualified Code(s): E03.9 - Hypothyroidism, unspecified (8) Pneumonia Qualifiers: Pneumonia type: due to unspecified organism Laterality: bilateral Lung location: lower lobe of lung Qualified Code(s): J18.1 - Lobar pneumonia, unspecified organism
--- NOTE | 2019-03-26 13:32 | Nephrology Progress Note ---
Date of Encounter: 03/26/19 Time of Encounter: 13:30 - Assessment and Plan (1) Acute kidney injury superimposed on CKD Current Visit: Yes Status: Acute Baseline appears to be 13-15. HD started today, tolerated well. Will plan on HD tomorrow. Avoid nephrotoxins and renal dose. Strict I/O Daily weights. Renal diet when able to eat. (2) CHF exacerbation Current Visit: Yes Status: Acute 1.5 liter fluid restriction. Per primary. Qualifiers: Heart failure type: diastolic Qualified Code(s): I50.33 - Acute on chronic diastolic (congestive) heart failure (3) Acute and chronic respiratory failure with hypoxia Current Visit: Yes Status: Resolved Per primary, continue supplemental oxygen. (4) Pain, coccyx Current Visit: Yes Status: Acute Patient states she has a chronic decubitus ulcer. Donut pillow ordered for patient to sit on, spoke with central supply, they will deliver to the room. Subjective Principal diagnosis: raymond/ckd Interval history: Pt seen and examined in HD, tolerating well. Denies chest pain or shortness of breath. Denies nausea, vomiting, diarrhea. Objective - Vital Signs Vital signs: Vital Signs Temp Pulse Resp BP Pulse Ox 03/26/19 13:00 130/52 03/26/19 12:45 133/56 03/26/19 12:30 132/57 03/26/19 12:15 135/57 03/26/19 12:00 135/53 03/26/19 11:45 138/59 03/26/19 11:30 130/56 03/26/19 11:15 131/57 03/26/19 11:00 133/56 03/26/19 10:45 97.8 F 16 132/57 03/26/19 07:14 18 90 03/26/19 07:11 98 F 63 18 135/63 91 03/26/19 04:21 17 95 03/26/19 00:20 97.9 F 59 15 144/64 93 03/26/19 00:09 17 94 03/25/19 20:05 17 97 03/25/19 19:40 97.5 F L 58 21 117/68 97 03/25/19 15:48 18 96 03/25/19 15:42 98 F 57 20 122/56 97 03/25/19 14:43 57 29 115/58 97 03/25/19 14:35 59 18 95 Intake and Output 03/25/19 03/26/19 03/26/19 23:59 07:59 15:59 Intake Total 100 / 440 1200 / 1200 Output Total 600 / 600 Balance 100 / 440 -600 / 600 1200 / 600 Intake: IV Fluids 100 / 200 100 / 100 Zosyn 3.375 GM In 0.9 % Sodium 100 / 200 100 / 100 Chloride (Mini-Bag +) 100 ML @ 25 mls/hr IVPB Q12HR ANNY Rx#: [id number] Oral 600 / 600 Intake, Rinseback and Flushes 500 / 500 Output: Urine 600 / 600 Other: Meal Breakfast Percent of Meal Consumed 100% Weight 88.2 kg Blood Glucose* 74 147 Hemodialysis Net Fluid Removed 2252 (mL) Patient Weight 03/26/19 23:59 Weight 88.2 kg - General Appearance General appearance: Present: well-developed, well-nourished EENT: Present: ATNC, hearing intact, vision intact Neck: Present: supple Respiratory: Present: clear Cardiology: Present: edema (Trace upper extremity noted, non pitting. ), normal S1, normal S2 Dialysis Vascular Access: Venous Catheter (DRSG C/D/I) Gastrointestinal: Present: normoactive bowel sounds, no tenderness, no guarding Integumentary: Present: no rash, warm and dry Neurologic: Present: alert and oriented x3 Musculoskeletal: Present: no deformities, no erythema Psychiatric: Present: mood/affect appropriate, cooperative - Lab 03/26/19 02:17 03/26/19 02:17 Most recent lab results 03/26/19 02:17 Calcium 9.5 Consult Discharge Plan - Plan Referrals: Alisha Paniagua SITE DAMAGE PREVENTION TECHNICIAN [Primary Care Provider] -
[2019-03-27] MEDS: Piperacillin/Tazobactam 3.375 GM in 0.9 % Sodium Chloride Mini Bag 100 ML IVPB SCH (04:12)
[2019-03-27] MEDS: *HR* Heparin 5,000 UNIT/ML VIAL SQ SCH ×2 (04:13→17:23)
[2019-03-27] MEDS: *HR* HYDROcodone/Acet 5/325 mg TABLET PO PRN (04:13)
[2019-03-27] MEDS: Ipratropium/Albuterol Neb 3 ML IH SCH ×6 (04:20→23:32)
[2019-03-27 05:03] LABS: Calcium 9.4 mg/dL (8.6-10.3); Potassium 4.4 mEq/L (3.5-5.1)
[2019-03-27] MEDS ORDERED: *HR* Heparin 10,000 UNIT/10 ML VIAL IV PRN (07:15)
[2019-03-27] MEDS ORDERED: 0.9 % Sodium Chloride 250 ML IVC PRN (07:15)
[2019-03-27] MEDS ORDERED: 0.9 % Sodium Chloride 1,000 ML PRIME SCH (07:15)
[2019-03-27] MEDS: Budesonide/Formoterol 160/4.5 1 PUFF INH IH SCH ×2 (07:22→19:40)
[2019-03-27] MEDS: Insulin LISPRO 300 UNITS/3 ML VIAL SQ SCH ×4 (08:32→22:27)
[2019-03-27] MEDS: Insulin DETEMIR 100 UNIT/ML X5UNITS SQ SCH ×2 (09:15→22:26)
[2019-03-27] MEDS: Sennosides 8.6 MG TABLET PO SCH ×2 (09:15→22:26)
--- NOTE | 2019-03-27 11:49 | Internal Med Progress Note ---
Hospitalist Progress Note - Encounter Date of Encounter: 03/27/19 Time of Encounter: 09:25 - Subjective Interval History: No major events overnight. Patient was seen this a.m. SHe denied fever, chills or night sweats. SHe has no nausea, vomiting or abdominal pain. Patient denied chest pain, shortness of breath or palpitation. - Exam Vitals: Temp Pulse Resp BP Pulse Ox 98 F 76 18 163/64 99 03/27/19 05:06 03/27/19 07:27 03/27/19 07:27 03/27/19 07:27 03/27/19 07:27 Exam: General: Patient is alert, oriented 3. No distress Head: Atraumatic, normal inspection, Eye: EOMI, PERRLA ENT: Mucous membranes moist. Neck: Normal inspection, Right TDC Respiratory: Right basilar crackles. Cardiovascular: Regular rate and regular rhythm. No murmurs, rubs, or gallops. GI: Soft, nondistended, normal bowel sounds. Extremities:No joint swelling, pedal edema, or tenderness noted. Neurological: Alert, oriented 3, no focal deficits. Psychiatric: normal affect, normal mood. Skin: Dry, intact, warm. Normal color. No rashes. - Assessment and Plan (1) CHF exacerbation Current Visit: Yes Status: Acute (2) Diabetes mellitus Current Visit: Yes Status: Acute (3) Hypothyroidism Current Visit: Yes Status: Chronic (4) Acute and chronic respiratory failure with hypoxia Current Visit: Yes Status: Resolved (5) COPD exacerbation Current Visit: Yes Status: Chronic (6) DVT prophylaxis Current Visit: Yes Status: Acute (7) Acute kidney injury superimposed on CKD Current Visit: Yes Status: Acute (8) Pneumonia Current Visit: Yes Status: Suspected (9) Pressure injury of coccygeal region, stage 2 Current Visit: Yes Status: Acute (10) UTI (urinary tract infection) Current Visit: Yes Status: Acute - Summary of Assessment and Plan Summary of Assessment and Plan: Ms. Peng is a 83 year old female with pmh of diastolic CHF, CKD stage IV atrial fibrilation not on anticoagulation, diabetes, hypothyroidism who was transferred from [place] for shortness of breath Acute hypoxic respiratory failure: on 3L. Likely from decompensated HF vs PNA vs COPD exacerbation. On zosyn day 09/11, finished Azithromycin, MRSA is negative. S/P thoracocentesis with 800ml fluids tapped. Cx are negative still. off steroids and continue home inhalers for COPD. SHe is afebrile and HDS. NIMA on CKD stage IV: Oliguria, today for 2nd HD. UCx is growing GPC. Continue Zosyn. UTI: UCx is growing MRSA and Enteroccous. consult ID. Hyperkalemia: resolved.. Decompensated HFpEF: Echo 08/28: EF 50%, mild DD, [id number] TR, mild , moderate pulmonary hypertension. limited Echo with no changes, CXR 03/24 with woresning edema. Atrial fibrillation: Not on AC due to previous GIB. Continue amiodarone, aspirin, beta blockers. IDDM: Continue insulin, Accu-Cheks and sliding coverage DVT prophylaxis: Subcutaneous cutaneous heparin. - Time Spent with Patient Total time spent is greater than 50% in coordination of care (as documented) at patient's floor/unit and/or counseling patient: Internal Medicine: Result - Labs CBC & Chem 7: 03/26/19 02:17 03/27/19 04:03 Labs: BMP 03/27/19 04:03 Sodium 140 Potassium 4.4 Chloride 99 Carbon Dioxide 28 BUN 59 H Creatinine 3.41 H Glucose 97 Calcium 9.4 - ABG Interpretation ABG results: ABG ABG pH 7.46 pH Units (7.32-7.45) H 03/20/19 14:36 ABG pCO2 40 mmHg (35-45) 03/20/19 14:36 ABG pO2 62 mmHg (85-104) L 03/20/19 14:36 ABG O2 Saturation 93 % (95-98) L 03/20/19 14:36 PT/INR, D-dimer PT 12.3 Seconds (9.4-12.1) H 03/25/19 09:50 Consult Discharge Plan - Plan Referrals: Alisha Paniagua, PURCHASING INTERN [Primary Care Provider] - (1) CHF exacerbation Qualifiers: Heart failure type: diastolic Qualified Code(s): I50.33 - Acute on chronic diastolic (congestive) heart failure (2) Diabetes mellitus Qualifiers: Diabetes mellitus type: type 2 Diabetes mellitus longterm insulin use: with ferry terminal supervisor use Diabetes mellitus complication status: without complication Qualified Code(s): E11.9 - Type 2 diabetes mellitus without complications; Z79.4 - ferry terminal agent (current) use of insulin (3) Hypothyroidism Qualifiers: Hypothyroidism type: unspecified Qualified Code(s): E03.9 - Hypothyroidism, unspecified (8) Pneumonia Qualifiers: Pneumonia type: due to unspecified organism Laterality: bilateral Lung location: lower lobe of lung Qualified Code(s): J18.1 - Lobar pneumonia, unspecified organism (10) UTI (urinary tract infection) Qualifiers: Urinary tract infection type: site unspecified Hematuria presence: with hematuria Qualified Code(s): N39.0 - Urinary tract infection, site not specified; R31.9 - Hematuria, unspecified
--- NOTE | 2019-03-27 11:57 | Nephrology Progress Note ---
Date of Encounter: 03/27/19 Time of Encounter: 11:55 - Assessment and Plan (1) Acute kidney injury superimposed on CKD Current Visit: Yes Status: Acute Baseline appears to be 13-15. HD in progress for today, this is consecutive day 2. Plan for HD tomorrow and will then assess for renal recovery. Uop noted to be 600 yesterday. Avoid nephrotoxins and renal dose. Strict I/O Daily weights. Renal diet. (2) CHF exacerbation Current Visit: Yes Status: Acute 1.5 liter fluid restriction. Per primary. Qualifiers: Heart failure type: diastolic Qualified Code(s): I50.33 - Acute on chronic diastolic (congestive) heart failure (3) Acute and chronic respiratory failure with hypoxia Current Visit: Yes Status: Resolved Per primary, continue supplemental oxygen. (4) Pain, coccyx Current Visit: Yes Status: Acute Patient states she has a chronic decubitus ulcer. Donut pillow ordered for patient to sit on, spoke with central supply, they will deliver to the room. Subjective Principal diagnosis: raymond/ckd Interval history: Pt seen and examined in HD, tolerating well. Denies chest pain or shortness of breath. Denies nausea, vomiting, diarrhea. Objective - Vital Signs Vital signs: Vital Signs Temp Pulse Resp BP Pulse Ox 03/27/19 07:27 76 18 163/64 99 03/27/19 07:23 16 95 03/27/19 05:06 98 F 61 15 160/72 93 03/27/19 04:21 14 94 03/27/19 00:12 97.9 F 58 14 127/74 95 03/26/19 23:50 12 92 03/26/19 21:00 95 03/26/19 20:04 14 94 03/26/19 19:38 97.7 F 60 21 145/72 92 03/26/19 16:25 98.3 F 61 16 145/72 93 03/26/19 16:13 14 91 03/26/19 13:35 97.5 F L 15 133/56 03/26/19 13:15 135/56 03/26/19 13:00 130/52 03/26/19 12:45 133/56 03/26/19 12:30 132/57 03/26/19 12:15 135/57 03/26/19 12:00 135/53 Intake and Output 03/26/19 03/27/19 03/27/19 23:59 07:59 15:59 Intake Total 100 / 1300 Output Total 250 / 3350 Balance -150 / -2049 Intake: IV Fluids 100 / 200 Zosyn 3.375 GM In 0.9 % Sodium 100 / 200 Chloride (Mini-Bag +) 100 ML @ 25 mls/hr IVPB Q12HR ANNY Rx#: [id number] Output: Catheter 250 / 250 Other: Weight 88.3 kg Blood Glucose* 115 124 Patient Weight 03/27/19 23:59 Weight 88.3 kg - General Appearance General appearance: Present: well-developed, well-nourished EENT: Present: ATNC, hearing intact, vision intact Neck: Present: supple Respiratory: Present: clear Cardiology: Present: edema (trace edema noted to bilat upper extremities.), normal S1, normal S2 Dialysis Vascular Access: Venous Catheter (DRSG C/D/I) Gastrointestinal: Present: normoactive bowel sounds, no tenderness, no guarding Integumentary: Present: no rash, warm and dry Neurologic: Present: alert and oriented x3 Musculoskeletal: Present: no deformities, no erythema Psychiatric: Present: mood/affect appropriate, cooperative - Lab 03/26/19 02:17 03/27/19 04:03 Most recent lab results 03/27/19 04:03 Calcium 9.4 Consult Discharge Plan - Plan Referrals: Alisha Paniagua, FOOD SERVICE REPRESENTATIVE [Primary Care Provider] -
--- NOTE | 2019-03-27 13:58 | Infectious Disease Consult ---
Infectious Disease-Consult - Encounter Date/Time Date of Encounter: 03/27/19 Time of Encounter: 13:53 - Data of Consult Patient: new to practice Reason for consult: "Enterococcus and MRSA in the urine" Consult date: 03/27/19 Requesting Physician: Jesse Torres Primary Care Provider: Alisha Paniagua CNP - HPI HPI: Ms. Peng is an 83-year-old female with past medical history of CHF, A. fib, diabetes, hypothyroidism, COPD, hyperlipidemia, hypertension, chronic kidney disease. Patient was admitted to the hospital 03/20/19 for CHF. We are consulted 03/27/19 for enterococcus and MRSA in the urine. Briefly, the patient is a 83-year-old female with past medical history as stated above. The patient presented to [facility] with complaints of shortness of breath. Chest x-ray showed vascular congestion and she was transferred here for further evaluation and treatment. Upon arrival, she was afebrile hemodynamically stable. Her white blood cell count was normal. She had a chest x-ray that showed no change in the bilateral interstitial airspace opacities concerning for CHF versus multifocal pneumonia. She was CT of the chest that showed findings consistent with CHF. She was started empirically on Rocephin and Zithromax initially. Serum creatinine was elevated at 3.68 consistent with her chronic kidney disease. After admission, she underwent a left-sided thoracentesis that yielded 800 mL's of pleural fluid. Cultures were negative. Repeat chest x-ray showed worsening bibasilar opacities right greater than left concerning for edema versus infection. Antibiotics were escalated to IV Rocephin. Due to worsening of her acute kidney injury and oliguria, she was started on intermittent hemodialysis after temporary HD catheter was placed 03/25/19. Apparently, she had a Caba placed due to decreased urine output that caused some blood in her urine. A urinalysis was obtained and the culture grew out MRSA and enterococcus. Currently, she is on IV Zosyn. We have been asked to evaluate and make further recommendations. During my exam today, the patient endorses a history as stated above. She states she became acutely short of breath on the day of admission. At this time, she states that overall she feels well. She denies fevers, chills, rigors. Denies any headache or neck pain. Denies chest pain, shortness of breath, cough. Denies nausea, vomiting, diarrhea, or constipation. She were reports her last bowel movement was 2 days ago. She states she is passing gas and feels like she might have to go later today. She denies any abdominal pain or urinary complaints including dysuria or urinary frequency. She denies any back or flank pain. She denies any pain in her joints or extremities. She denies oral thrush or skin rashes. - ROS Review of Systems: All systems reviewed and no additional remarkable complaints except as stated. - Results CBC & Chem 7: 03/28/19 05:26 03/28/19 05:26 - Exam Vitals: Temp Pulse Resp BP Pulse Ox 97.5 F L 76 16 157/60 99 03/27/19 12:05 03/27/19 07:27 03/27/19 12:05 03/27/19 12:05 03/27/19 07:27 Exam: Head: Atraumatic, normal inspection, normocephalic. Eye: EOMI, PERRLA, no scleral icterus noted. ENT: Mucous membranes moist. No odontogenic infection noted. Neck: Normal inspection, no meningismus. Respiratory: Clear to auscultation. No rales, respiratory distress, rhonchi, or wheezes noted. Cardiovascular: Regular rate and rhythm, S1 and S2 audible. No murmurs, rubs, or gallops. GI: Soft, nondistended, normal bowel sounds. Well-healed surgical stab sites without surrunding erythema, warmth, or drainage. Non-tender. Extremities:No joint swelling, pedal edema, or tenderness noted. Back: Normal inspection. No vertebral tenderness noted. Neurological: Alert, oriented 3, no focal deficits. Psychiatric: normal affect, normal mood. Skin: Dry, intact, warm. Normal color. No rashes. Additional findings: Perma-cath noted to the right upper chest with transparent dressing clean, dry, and intact. Levothyroxine [Synthroid] 88 mcg PO QAM 01/22/16 [History] hydrALAZINE [HydrALAZINE] 25 mg PO QID 01/22/16 [History] Amiodarone [Cordarone] 200 mg PO QAM 03/25/16 [History] Docusate [Colace] 100 mg PO BID 03/25/16 [History] Albuterol Sulfate [Ventolin Hfa] 1 - 2 puff IH Q4H PRN 06/13/16 [History] Allopurinol [Zyloprim 100 MG] 100 mg PO QAM 03/19/18 [History] Atorvastatin [Lipitor] 10 mg PO QAM 03/19/18 [History] Carvedilol 3.125 mg PO BID #60 tab 03/19/18 [Rx] Cholecalciferol (Vitamin D3) [Vitamin D3] 2,000 unit PO QAM 03/19/18 [History] Hydralazine HCl 50 mg PO QID 08/25/18 [History] Insulin DETEMIR [Levemir] 12 unit SQ HS 08/25/18 [History] Insulin DETEMIR [Levemir] 20 unit SQ QAM 08/25/18 [History] Isosorbide MONOnitrate (24 HR) [Imdur] 60 mg PO QAM 08/25/18 [History] Promethazine [Phenergan] 25 mg PO Q6HR PRN 08/25/18 [History] Sennosides [Senna] 17.2 mg PO BID 08/25/18 [History] Acetaminophen [Tylenol] 650 mg PO Q6HR PRN 10/17/18 [History] Aspirin 81 mg PO QAM 10/17/18 [History] NIFEdipine [Nifedipine ER] 60 mg PO QAM 10/17/18 [History] Furosemide [Lasix] 40 mg PO QAM 02/25/19 [History] HYDROcodone/Acet 5/325 mg [Neihart 5-325 mg] 1 tab PO Q6H PRN 03/09/19 [History] Pyridoxine HCl [Vitamin B-6] 50 mg PO QAM 03/09/19 [History] Polyethylene Glycol 3350 [Natura-Lax] 17 gm PO BID #60 powder 03/13/19 [Rx] Psyllium [Metamucil Fiber Singles Packet] 1 packet PO TID #60 powd.pack 03/13/19 [Rx] Fluconazole [Diflucan] 100 mg PO DAILY #7 tablet 03/14/19 [Rx] Allergy/AdvReac Type Severity Reaction Status Date / Time Cyclobenzaprine Allergy Dizziness Verified 02/25/19 21:54 [From Flexeril] simvastatin AdvReac Muscle Pain Verified 02/25/19 21:54 - Assessment and Plan (1) UTI (urinary tract infection) Current Visit: No Status: Resolved Urine culture positive for GPC's 2, presumptively MRSA and enterococcus. Patient is asymptomatic. No dysuria, frequency, or abdominal pain. No source criteria. No indication to treat. Qualifiers: Urinary tract infection type: site unspecified Hematuria presence: without hematuria Qualified Code(s): N39.0 - Urinary tract infection, site not speci fied SNOMED Code(s): 77977015 (2) Pulmonary edema Current Visit: No Status: Acute Noted on chest x-ray and CT of the chest. Likely secondary to CHF exacerbation. Further workup and management per the primary team. Qualifiers: Chronicity: acute Qualified Code(s): J81.0 - Acute pulmonary edema SNOMED Code(s): 14307631 (3) Acute kidney injury superimposed on CKD Current Visit: Yes Status: Acute Nephrology consulted and following. Started on intermittent hemodialysis with PermCath placement 03/25/19. SNOMED Code(s): 30960582 (4) CHF (congestive heart failure) Current Visit: No Status: Chronic SNOMED Code(s): 00347228 (5) Insulin dependent diabetes mellitus Current Visit: No Status: Chronic SNOMED Code(s): 17260501 (6) CKD (chronic kidney disease) stage 3, GFR 30-59 ml/min Current Visit: No Status: Chronic SNOMED Code(s): 294451689 (7) Essential hypertension Current Visit: No Status: Chronic SNOMED Code(s): 89312827 (8) Atrial fibrillation Current Visit: No Status: Chronic Qualifiers: Atrial fibrillation type: unspecified Qualified Code(s): I48.91 - Unspecified atrial fibrillation SNOMED Code(s): 49069694 (9) Hypertension Current Visit: No Status: Acute Qualifiers: Hypertension type: essential hypertension Qualified Code(s): I10 - Essential (primary) hypertension SNOMED Code(s): 75909836 (10) Hyperlipidemia Current Visit: No Status: Acute Qualifiers: Hyperlipidemia type: unspecified Qualified Code(s): E78.5 - Hyperlipidemia, unspecified SNOMED Code(s): 05828093 (11) Hypothyroidism Current Visit: Yes Status: Chronic Qualifiers: Hypothyroidism type: unspecified Qualified Code(s): E03.9 - Hypothyroidism, unspecified SNOMED Code(s): 71038244 (12) Sacral decubitus ulcer, stage II Current Visit: No Status: Acute Dressing changes per wound care. SNOMED Code(s): 946015911, 774164016 - Recommendations Recommendations: At this point, low index of suspicion for active infection in the urine since the patient is asymptomatic. No indication to treat. Based on imaging and clinical picture, low index of suspicion for PNA. Consider stopping Zosyn, but will defer to the primary team. No further recommendations from the ID team. We will sign off. Please re-consult if needed. Past Med Surg Social Fam HX - Past Medical History Attestation: Yes The following information was validated with the patient. Source: patient, old records reviewed, nursing notes reviewed Medical history: arthritis, atrial fibrillation, CHF, COPD, coronary artery disease, DVT, diabetes, hyperlipidemia, hypertension, myocardial infarction, renal disease, thyroid disease Additional medical history: left leg mole, melanoma, removed Psychiatric history: anxiety - Past Surgical History Surgical History: cataract, hysterectomy, knee replacement, orthopedic, other, RAYMOND/BSO Additional surgical history: cardiac stents, cataracts,gall stones removed, right knee, colonoscopy - Social History Smoking Status: Never smoker Smokeless Tobacco Status: No Alcohol use: none Drug use: none Occupational status: retired Current living situation: [facility] Activity Level: Wheelchair bound Recent Out of Country Travel Within the Last 8 Weeks: No Exposure or Possible Exposure to Illness During Travel: No - Family History Mother Living Status: Hx Family Cardiac Disorders: Yes Father Adopted: No Family Member Ethnicity: Non- Living Status: Hx Family Cardiac Disorders: Yes (unknown type but of cardiac disease) Hx Family Respiratory Disorders: No Hx Family Cancer: No Hx Family GI Disorders: No Hx Family Endocrine Disorder: Yes Hx Family Neuromuscular Disorders: No Hx Family Neurologic Disorders: No Hx Family HEENT Disorders: No Hx Family Autoimmune Disorders: No Consult Discharge Plan - Plan Referrals: Alisha Paniagua CNP [Primary Care Provider] - - Attending Attestation I have personally performed a face to face evaluation on this patient. I have reviewed and agree with the care plan. This is an addendum to original report dictated by Harriet Turk CNP. Please refer to Harriet's note for full detail. Agree with above history of present illness, review of system and physical exam findings. Assessment and plan: Urine tract infection urine culture positive for gram-positive cocci 2 p resumptive MRSA and enterococcus. Patient is asymptomatic. No SIRS criteria Pulmonary edema no Acute kidney injury superimposed on chronic kidney disease CHF Insulin-dependent diabetes mellitus type 2 Chronic kidney disease stage III Atrial fibrillation Recommendations At this point patient looks great feels great she has no dysuria, no urgency. Patient does have a Caba that was placed it today but she told me she was asymptomatic. Patient with no weakness no nausea no vomiting altered mental status no SIRS criteria. I feel comfortable did call this asymptomatic bacteriuria and to observe off antibiotics.
[2019-03-27] MEDS: Aspirin 81 MG TAB.CHEW PO SCH (17:22)
[2019-03-27] MEDS: Isosorbide MONOnitrate (24 HR) 60 MG TAB.ER.24H PO SCH (17:22)
[2019-03-27] MEDS: *HR* Amiodarone 200 MG TABLET PO SCH (17:23)
[2019-03-27] MEDS: NIFEdipine XL (24 HR) 60 MG TAB.ER.24 PO SCH (17:23)
[2019-03-27] MEDS: Cholecalciferol (D-3) 1,000 UNIT (25MCG) TABLET PO SCH (17:23)
[2019-03-28] MEDS: Ipratropium/Albuterol Neb 3 ML IH SCH ×5 (03:38→19:44)
[2019-03-28] MEDS: *HR* HYDROcodone/Acet 5/325 mg TABLET PO PRN (04:22)
[2019-03-28] MEDS: *HR* Heparin 5,000 UNIT/ML VIAL SQ SCH ×2 (04:24→18:47)
[2019-03-28 05:54] LABS: Hematocrit 27.7 % (35.3-44.9); Mean Corpuscular HGB Conc 32.5 g/dL (31.6-35.5); Mean Corpuscular Hemoglobin 34.4 pg (28.0-33.3); Mean Corpuscular Volume 105.7 fL (83.0-100.0); Mean Platelet Volume 11.3 fL (9.4-12.4); Platelet Count 164 K/mcL (140-400); Red Blood Count 2.62 M/mcL (3.82-4.97); Red Cell Distribution Width 15.6 % (11.5-14.5); White Blood Count 5.8 K/mcL (4.3-11.1)
[2019-03-28 06:54] LABS: Calcium 8.9 mg/dL (8.6-10.3); Potassium 4.2 mEq/L (3.5-5.1)
[2019-03-28] MEDS ORDERED: 0.9 % Sodium Chloride 250 ML IVC PRN (07:37)
[2019-03-28] MEDS ORDERED: *HR* Heparin 10,000 UNIT/10 ML VIAL IV PRN ×2 (07:37)
[2019-03-28] MEDS: Budesonide/Formoterol 160/4.5 1 PUFF INH IH SCH ×2 (07:42→19:44)
[2019-03-28] MEDS: Sennosides 8.6 MG TABLET PO SCH ×2 (08:14→21:59)
[2019-03-28] MEDS: Cholecalciferol (D-3) 1,000 UNIT (25MCG) TABLET PO SCH (08:14)
[2019-03-28] MEDS: Aspirin 81 MG TAB.CHEW PO SCH (08:14)
[2019-03-28] MEDS: NIFEdipine XL (24 HR) 60 MG TAB.ER.24 PO SCH (08:15)
[2019-03-28] MEDS: Isosorbide MONOnitrate (24 HR) 60 MG TAB.ER.24H PO SCH (08:15)
[2019-03-28] MEDS: Insulin LISPRO 300 UNITS/3 ML VIAL SQ SCH ×4 (08:15→21:59)
[2019-03-28] MEDS: *HR* Amiodarone 200 MG TABLET PO SCH (08:15)
[2019-03-28] MEDS: Insulin DETEMIR 100 UNIT/ML X5UNITS SQ SCH ×2 (08:18→22:03)
--- NOTE | 2019-03-28 09:48 | Nephrology Progress Note ---
Date of Encounter: 03/28/19 Time of Encounter: 09:46 - Assessment and Plan (1) Acute kidney injury superimposed on CKD Current Visit: Yes Status: Acute Baseline appears to be 13-15. HD in progress for today, this is consecutive day 3. Will hold HD tomorrow if able and assess for renal recovery. PermCath placed 03/25/19. No urine output recorded for today. special services coordinator planning outpatient [facility] Avoid nephrotoxins and renal dose. Strict I/O Daily weights. Renal diet. (2) CHF exacerbation Current Visit: Yes Status: Acute 1.5 liter fluid restriction. Per primary. Qualifiers: Heart failure type: diastolic Qualified Code(s): I50.33 - Acute on chronic diastolic (congestive) heart failure (3) Acute and chronic respiratory failure with hypoxia Current Visit: Yes Status: Resolved Per primary, continue supplemental oxygen. (4) Pain, coccyx Current Visit: Yes Status: Acute Patient states she has a chronic decubitus ulcer. Subjective Principal diagnosis: raymond/ckd Interval history: Pt seen and examined in HD, tolerating well. Denies chest pain or shortness of breath. Denies nausea, vomiting, diarrhea. Admits to feeling very fatigued. Objective - Vital Signs Vital signs: Vital Signs Temp Pulse Resp BP Pulse Ox 03/28/19 07:42 18 94 03/28/19 07:38 98.2 F 62 18 132/61 92 03/28/19 03:38 16 97 03/28/19 03:35 97.7 F 61 16 137/57 92 03/27/19 23:51 96 03/27/19 23:35 14 100 03/27/19 20:05 99.3 F 64 18 95 03/27/19 19:40 18 94 03/27/19 15:31 18 95 03/27/19 15:00 97.5 F L 68 14 163/63 94 03/27/19 12:05 97.5 F L 16 157/60 03/27/19 11:50 160/65 03/27/19 11:35 153/64 03/27/19 11:20 153/66 03/27/19 11:05 155/61 03/27/19 10:50 157/62 03/27/19 10:35 151/64 03/27/19 10:20 153/63 03/27/19 10:05 153/64 03/27/19 09:50 151/64 Intake and Output 03/27/19 03/28/19 03/28/19 23:59 07:59 15:59 Intake Total 0 / 700 120 / 120 Output Total 600 / 3200 Balance -600 / -2500 120 / 120 Intake: Oral 0 / 0 120 / 120 Output: Catheter 600 / 600 Other: Meal Breakfast Percent of Meal Consumed 50% Weight 84 kg Blood Glucose* 167 99 Patient Weight 03/28/19 23:59 Weight 84 kg - General Appearance General appearance: Present: well-developed, well-nourished Exam: fatigued. EENT: Present: ATNC, hearing intact, vision intact Neck: Present: supple Respiratory: Present: clear Cardiology: Present: edema (trace edema noted to bilat lower extremities.), normal S1, normal S2 Dialysis Vascular Access: Venous Catheter (DRSG C/D/I) Gastrointestinal: Present: normoactive bowel sounds, no tenderness, no guarding Integumentary: Present: no rash, warm and dry Neurologic: Present: alert and oriented x3 Musculoskeletal: Present: no deformities, no erythema Psychiatric: Present: mood/affect appropriate, cooperative - Lab 03/28/19 05:26 03/28/19 05:26 Most recent lab results 03/28/19 05:26 Calcium 8.9 Consult Discharge Plan - Plan Referrals: Alisha Paniagua CNP [Primary Care Provider] -
--- NOTE | 2019-03-28 11:47 | Internal Med Progress Note ---
Hospitalist Progress Note - Encounter Date of Encounter: 03/28/19 Time of Encounter: 10:15 - Subjective Interval History: No major events overnight. Patient was seen this a.m. He denied fever, chills or night sweats. He has no nausea, vomiting or abdominal pain. Patient denied chest pain, shortness of breath or palpitation. - Exam Vitals: Temp Pulse Resp BP Pulse Ox 98.9 F 62 18 132/52 94 03/28/19 09:25 03/28/19 07:38 03/28/19 09:25 03/28/19 09:03/28/19 07:42 Exam: General: Patient is alert, oriented 3. No distress Head: Atraumatic, normal inspection, Eye: EOMI, PERRLA ENT: Mucous membranes moist. Neck: Normal inspection, Right TDC Respiratory: Right basilar crackles. Cardiovascular: Regular rate and regular rhythm. No murmurs, rubs, or gallops. GI: Soft, nondistended, normal bowel sounds. Extremities:No joint swelling, pedal edema, or tenderness noted. Neurological: Alert, oriented 3, no focal deficits. Psychiatric: normal affect, normal mood. Skin: Dry, intact, warm. Normal color. No rashes. - Assessment and Plan (1) CHF exacerbation Current Visit: Yes Status: Acute (2) Diabetes mellitus Current Visit: Yes Status: Acute (3) Hypothyroidism Current Visit: Yes Status: Chronic (4) Acute and chronic respiratory failure with hypoxia Current Visit: Yes Status: Resolved (5) COPD exacerbation Current Visit: Yes Status: Chronic (6) DVT prophylaxis Current Visit: Yes Status: Acute (7) Acute kidney injury superimposed on CKD Current Visit: Yes Status: Acute (8) Pneumonia Current Visit: Yes Status: Suspected (9) Pressure injury of coccygeal region, stage 2 Current Visit: Yes Status: Acute (10) UTI (urinary tract infection) Current Visit: Yes Status: Acute - Summary of Assessment and Plan Summary of Assessment and Plan: Ms. Peng is a 83 year old female with pmh of diastolic CHF, CKD stage IV atrial fibrilation not on anticoagulation, diabetes, hypothyroidism who was transferred from [place] for shortness of breath Acute hypoxic respiratory failure: on 3L. Likely from decompensated HF vs PNA vs COPD exacerbation. On zosyn day 09/11, finished Azithromycin, MRSA is negative. S/P thoracocentesis with 800ml fluids tapped. Cx are negative still. off steroids and continue home inhalers for COPD. SHe is afebrile and HDS. NIMA on CKD stage IV: Oliguria, today for 3nd HD. UTI: UCx is very. consult ID. they recommended against antibiotics and this might be a contaminant Decompensated HFpEF: Echo 08/28: EF 50%, mild DD, [id number] TR, mild , moderate pulmonary hypertension. limited Echo with no changes. Atrial fibrillation: Not on AC due to previous GIB. Continue amiodarone, aspirin, beta blockers. IDDM: Continue insulin, Accu-Cheks and sliding coverage DVT prophylaxis: SCD - Time Spent with Patient Total time spent is greater than 50% in coordination of care (as documented) at patient's floor/unit and/or counseling patient: Plan of Care Discussed with: patient Internal Medicine: Result - Labs CBC & Chem 7: 03/28/19 05:26 03/28/19 05:26 Labs: Short CBC 03/28/19 Range/Units 05:26 WBC 5.8 (4.3-11.1) K/mcL Hgb 9.0 L (11.5-15.4) g/dL Hct 27.7 L (35.3-44.9) % Plt Count 164 (140-400) K/mcL BMP 03/28/19 05:26 Sodium 140 Potassium 4.2 Chloride 101 Carbon Dioxide 28 BUN 29 H Creatinine 2.35 H Glucose 108 H Calcium 8.9 - ABG Interpretation ABG results: ABG ABG pH 7.46 pH Units (7.32-7.45) H 03/20/19 14:36 ABG pCO2 40 mmHg (35-45) 03/20/19 14:36 ABG pO2 62 mmHg (85-104) L 03/20/19 14:36 ABG O2 Saturation 93 % (95-98) L 03/20/19 14:36 PT/INR, D-dimer PT 12.3 Seconds (9.4-12.1) H 03/25/19 09:50 Consult Discharge Plan - Plan Referrals: Alisha Paniagua, [employer]OR[employer] [Primary Care Provider] - (1) CHF exacerbation Qualifiers: Heart failure type: diastolic Qualified Code(s): I50.33 - Acute on chronic diastolic (congestive) heart failure (2) Diabetes mellitus Qualifiers: Diabetes mellitus type: type 2 Diabetes mellitus termite control representative insulin use: with termite control representative use Diabetes mellitus complication status: without complication Qualified Code(s): E11.9 - Type 2 diabetes mellitus without complications; Z79.4 - intermediate card tender (current) use of insulin (3) Hypothyroidism Qualifiers: Hypothyroidism type: unspecified Qualified Code(s): E03.9 - Hypothyroidism, unspecified (8) Pneumonia Qualifiers: Pneumonia type: due to unspecified organism Laterality: bilateral Lung location: lower lobe of lung Qualified Code(s): J18.1 - Lobar pneumonia, unspecified organism (10) UTI (urinary tract infection) Qualifiers: Urinary tract infection type: site unspecified Hematuria presence: with hematuria Qualified Code(s): N39.0 - Urinary tract infection, site not specified; R31.9 - Hematuria, unspecified
[2019-03-29] MEDS: Ipratropium/Albuterol Neb 3 ML IH SCH ×7 (00:05→23:20)
[2019-03-29] MEDS: *HR* HYDROcodone/Acet 5/325 mg TABLET PO PRN (03:13)
[2019-03-29 06:05] LABS: Hematocrit 29.4 % (35.3-44.9); Hemoglobin 9.3 g/dL (11.5-15.4); Mean Corpuscular HGB Conc 31.6 g/dL (31.6-35.5); Mean Corpuscular Hemoglobin 34.2 pg (28.0-33.3); Mean Corpuscular Volume 108.1 fL (83.0-100.0); Mean Platelet Volume 11.2 fL (9.4-12.4); Platelet Count 155 K/mcL (140-400); Red Blood Count 2.72 M/mcL (3.82-4.97); Red Cell Distribution Width 15.3 % (11.5-14.5); White Blood Count 6.1 K/mcL (4.3-11.1)
[2019-03-29] MEDS: *HR* Heparin 5,000 UNIT/ML VIAL SQ SCH ×2 (06:23→17:53)
[2019-03-29 06:31] LABS: Calcium 8.9 mg/dL (8.6-10.3)
[2019-03-29] MEDS: Insulin LISPRO 300 UNITS/3 ML VIAL SQ SCH ×4 (07:59→21:15)
[2019-03-29] MEDS: Budesonide/Formoterol 160/4.5 1 PUFF INH IH SCH ×2 (09:48→19:56)
[2019-03-29] MEDS: Cholecalciferol (D-3) 1,000 UNIT (25MCG) TABLET PO SCH (09:50)
[2019-03-29] MEDS: NIFEdipine XL (24 HR) 60 MG TAB.ER.24 PO SCH (09:50)
[2019-03-29] MEDS: *HR* Amiodarone 200 MG TABLET PO SCH (09:50)
[2019-03-29] MEDS: Aspirin 81 MG TAB.CHEW PO SCH (09:51)
[2019-03-29] MEDS: Isosorbide MONOnitrate (24 HR) 60 MG TAB.ER.24H PO SCH (09:52)
[2019-03-29] MEDS: Sennosides 8.6 MG TABLET PO SCH ×2 (09:52→21:12)
[2019-03-29] MEDS: Insulin DETEMIR 100 UNIT/ML X5UNITS SQ SCH ×2 (09:59→21:15)
--- NOTE | 2019-03-29 12:46 | Internal Med Progress Note ---
Hospitalist Progress Note - Encounter Date of Encounter: 03/29/19 Time of Encounter: 09:45 - Subjective Interval History: No major events overnight. Patient was seen this a.m. sHe denied fever, chills or night sweats. sHe has no nausea, vomiting or abdominal pain. Patient denied chest pain, shortness of breath or palpitation. - Exam Vitals: Temp Pulse Resp BP Pulse Ox 98.8 F 60 18 150/61 97 03/29/19 07:00 03/29/19 07:00 03/29/19 12:05 03/29/19 12:05 03/29/19 12:05 Exam: General: Patient is alert, oriented 3. No distress Head: Atraumatic, normal inspection, Eye: EOMI, PERRLA ENT: Mucous membranes moist. Neck: Normal inspection, Right TDC Respiratory: Right basilar crackles. Cardiovascular: Regular rate and regular rhythm. No murmurs, rubs, or gallops. GI: Soft, nondistended, normal bowel sounds. Extremities:No joint swelling, pedal edema, or tenderness noted. Neurological: Alert, oriented 3, no focal deficits. Psychiatric: normal affect, normal mood. Skin: Dry, intact, warm. Normal color. No rashes. - Assessment and Plan (1) CHF exacerbation Current Visit: Yes Status: Acute (2) Diabetes mellitus Current Visit: Yes Status: Acute (3) Hypothyroidism Current Visit: Yes Status: Chronic (4) Acute and chronic respiratory failure with hypoxia Current Visit: Yes Status: Resolved (5) COPD exacerbation Current Visit: Yes Status: Chronic (6) DVT prophylaxis Current Visit: Yes Status: Acute (7) Acute kidney injury superimposed on CKD Current Visit: Yes Status: Acute (8) Pneumonia Current Visit: Yes Status: Suspected (9) Pressure injury of coccygeal region, stage 2 Current Visit: Yes Status: Acute (10) UTI (urinary tract infection) Current Visit: Yes Status: Acute - Summary of Assessment and Plan Summary of Assessment and Plan: Ms. Peng is a 83 year old female with pmh of diastolic CHF, CKD stage IV atrial fibrilation not on anticoagulation, diabetes, hypothyroidism who was transferred from [place] for shortness of breath Acute hypoxic respiratory failure: on 3L. Likely from decompensated HF vs PNA vs COPD exacerbation. On zosyn day 09/11, finished Azithromycin, MRSA is negative. S/P thoracocentesis with 800ml fluids tapped. Cx are negative still. off steroids and continue home inhalers for COPD. SHe is afebrile and HDS. NIMA on CKD stage IV: Oliguria, got 3nd HD. UTI: UCx is + for VRE. consult ID. they recommended against antibiotics and this might be a contaminant Decompensated HFpEF: Echo 08/28: EF 50%, mild DD, [id number] TR, mild , moderate pulmonary hypertension. limited Echo with no changes. Atrial fibrillation: Not on AC due to previous GIB. Continue amiodarone, aspirin, beta blockers. IDDM: Continue insulin, Accu-Cheks and sliding coverage DVT prophylaxis: SCD - Time Spent with Patient Total time spent is greater than 50% in coordination of care (as documented) at patient's floor/unit and/or counseling patient: Plan of Care Discussed with: patient Internal Medicine: Result - Labs CBC & Chem 7: 03/29/19 05:32 03/29/19 05:32 Labs: Short CBC 03/29/19 Range/Units 05:32 WBC 6.1 (4.3-11.1) K/mcL Hgb 9.3 L (11.5-15.4) g/dL Hct 29.4 L (35.3-44.9) % Plt Count 155 (140-400) K/mcL BMP 03/29/19 05:32 Sodium 141 Potassium 4.0 Chloride 101 Carbon Dioxide 29 BUN 16 Creatinine 2.04 H Glucose 86 Calcium 8.9 - ABG Interpretation ABG results: ABG ABG pH 7.46 pH Units (7.32-7.45) H 03/20/19 14:36 ABG pCO2 40 mmHg (35-45) 03/20/19 14:36 ABG pO2 62 mmHg (85-104) L 03/20/19 14:36 ABG O2 Saturation 93 % (95-98) L 03/20/19 14:36 PT/INR, D-dimer PT 12.3 Seconds (9.4-12.1) H 03/25/19 09:50 Consult Discharge Plan - Plan Referrals: Alisha Paniagua, COATING TECHNICIAN [Primary Care Provider] - (1) CHF exacerbation Qualifiers: Heart failure type: diastolic Qualified Code(s): I50.33 - Acute on chronic diastolic (congestive) heart failure (2) Diabetes mellitus Qualifiers: Diabetes mellitus type: type 2 Diabetes mellitus detention insulin use: with detention use Diabetes mellitus complication status: without complication Qualified Code(s): E11.9 - Type 2 diabetes mellitus without complications; Z79.4 - retirement (current) use of insulin (3) Hypothyroidism Qualifiers: Hypothyroidism type: unspecified Qualified Code(s): E03.9 - Hypothyroidism, unspecified (8) Pneumonia Qualifiers: Pneumonia type: due to unspecified organism Laterality: bilateral Lung location: lower lobe of lung Qualified Code(s): J18.1 - Lobar pneumonia, unspecified organism (10) UTI (urinary tract infection) Qualifiers: Urinary tract infection type: site unspecified Hematuria presence: with hematuria Qualified Code(s): N39.0 - Urinary tract infection, site not specified; R31.9 - Hematuria, unspecified
--- NOTE | 2019-03-29 16:47 | Nephrology Progress Note ---
Date of Encounter: 03/29/19 Time of Encounter: 12:30 - Assessment and Plan (1) Acute kidney injury superimposed on CKD Current Visit: Yes Status: Acute Baseline appears to be 13-15. 3 consecutive HD days completed, will assess for renal recovery. PermCath placed 03/25/19. No urine output recorded for today. managed services consultant planning outpatient chair [facility]. Patient may go from renal standpoint, if chair time and transportation are set up. Avoid nephrotoxins and renal dose. Strict I/O Daily weights. Renal diet. (2) CHF exacerbation Current Visit: Yes Status: Acute 1.5 liter fluid restriction. Per primary. Qualifiers: Heart failure type: diastolic Qualified Code(s): I50.33 - Acute on chronic diastolic (congestive) heart failure (3) Acute and chronic respiratory failure with hypoxia Current Visit: Yes Status: Resolved Per primary, continue supplemental oxygen. (4) Pain, coccyx Current Visit: Yes Status: Acute Patient states she has a chronic decubitus ulcer. Subjective Principal diagnosis: raymond/ckd Interval history: Pt seen and examined. Is resting. Reports she is very fatigued. Denies chest pain or shortness of breath. Denies nausea, vomiting, diarrhea. Objective - Vital Signs Vital signs: Vital Signs Temp Pulse Resp BP Pulse Ox 03/29/19 16:00 18 94 03/29/19 15:00 98.0 F 63 14 153/60 93 03/29/19 12:05 18 150/61 97 03/29/19 07:45 18 150/61 97 03/29/19 07:00 98.8 F 60 18 150/61 97 03/29/19 03:34 16 93 03/29/19 03:30 98.8 F 58 17 120/54 100 03/29/19 00:06 16 92 03/28/19 20:43 99.2 F 59 17 154/60 94 03/28/19 19:47 16 97 Intake and Output 03/29/19 03/29/19 03/29/19 07:59 15:59 23:59 Intake Total 0 / 720 720 / 720 Output Total 0 / 0 0 / 0 Balance 0 / 720 720 / 720 Intake: Oral 0 / 720 720 / 720 Output: Urine 0 / 0 0 / 0 Other: Meal Lunch Percent of Meal Consumed 90% Blood Glucose* 71 162 144 - General Appearance General appearance: Present: well-developed, well-nourished EENT: Present: ATNC, hearing intact, vision intact Neck: Present: supple Respiratory: Present: clear Cardiology: Present: edema (trace bilat upper extremity edema, non pitting. ), normal S1, normal S2 Dialysis Vascular Access: Venous Catheter (DRSG C/D/I) Gastrointestinal: Present: normoactive bowel sounds, no tenderness, no guarding Integumentary: Present: no rash, warm and dry Neurologic: Present: alert and oriented x3 Musculoskeletal: Present: no deformities, no erythema Psychiatric: Present: mood/affect appropriate, cooperative - Lab 03/29/19 05:32 03/29/19 05:32 Most recent lab results 03/29/19 05:32 Calcium 8.9 Consult Discharge Plan - Plan Referrals: Alisha Paniagua BAG MAKING MACHINE OPERATOR [Primary Care Provider] -
[2019-03-30] MEDS: Ipratropium/Albuterol Neb 3 ML IH SCH ×4 (04:10→15:19)
[2019-03-30 05:43] LABS: Hematocrit 30.1 % (35.3-44.9); Hemoglobin 9.4 g/dL (11.5-15.4); Mean Corpuscular HGB Conc 31.2 g/dL (31.6-35.5); Mean Corpuscular Hemoglobin 33.5 pg (28.0-33.3); Mean Corpuscular Volume 107.1 fL (83.0-100.0); Mean Platelet Volume 11.4 fL (9.4-12.4); Platelet Count 154 K/mcL (140-400); Red Blood Count 2.81 M/mcL (3.82-4.97); Red Cell Distribution Width 15.1 % (11.5-14.5)
[2019-03-30] MEDS: *HR* Heparin 5,000 UNIT/ML VIAL SQ SCH (05:59)
[2019-03-30 06:00] LABS: Calcium 9.6 mg/dL (8.6-10.3); Potassium 3.9 mEq/L (3.5-5.1)
[2019-03-30] MEDS: Budesonide/Formoterol 160/4.5 1 PUFF INH IH SCH (07:45)
[2019-03-30] MEDS ORDERED: 0.9 % Sodium Chloride 250 ML IVC PRN (08:52)
[2019-03-30] MEDS ORDERED: *HR* Heparin 10,000 UNIT/10 ML VIAL IV PRN (09:05)
[2019-03-30] MEDS ORDERED: 0.9 % Sodium Chloride 1,000 ML PRIME SCH (09:15)
--- NOTE | 2019-03-30 12:31 | Discharge Summary ---
- NOTES TO OUTPATIENT PROVIDER Notes to Outpatient Provider: Patient was admitted with acute hypoxic surgery failure likely from decompensated heart failure due to worsening kidney dysfunction. She was treated empirically for pneumonia and had thoracocentesis done. Her kidneys functions failed and she had temporary dialysis catheter and started on dialysis with significant improvement in her shortness of breath. Orders not resulted at time of discharge: Pending orders 03/21/19 15:15 AFB Culture, Body Fluid [TB] Stat AFB Smear [TB] Stat 03/24/19 07:24 Culture,Urine [RM] Stat Date of Encounter: 03/30/19 Time of Encounter: 09:30 - Discharge Diagnosis (1) CHF exacerbation Priority: Primary Status: Resolved Qualifiers: Heart failure type: diastolic Qualified Code(s): I50.33 - Acute on chronic diastolic (congestive) heart failure (2) Diabetes mellitus Priority: Secondary Status: Chronic Qualifiers: Diabetes mellitus type: type 2 Diabetes mellitus intermediate insulin use: with intermediate use Diabetes mellitus complication status: without complication Qualified Code(s): E11.9 - Type 2 diabetes mellitus without complications; Z79.4 - detention (current) use of insulin (3) Hypothyroidism Priority: Secondary Status: Chronic Qualifiers: Hypothyroidism type: unspecified Qualified Code(s): E03.9 - Hypothyroidism, unspecified (4) Acute and chronic respiratory failure with hypoxia Priority: Secondary Status: Resolved (5) COPD exacerbation Priority: Secondary Status: Chronic (6) DVT prophylaxis Priority: Secondary Status: Acute (7) Acute kidney injury superimposed on CKD Priority: Secondary Status: Chronic (8) Pressure injury of coccygeal region, stage 2 Priority: Secondary Status: Chronic Hospital course: Ms. Peng is a 83 year old female with pmh of diastolic CHF, CKD stage IV atrial fibrilation not on anticoagulation, diabetes, hypothyroidism was managed in the hospital for acute hypoxic respiratory failure due to decompensated heart failure presents to ejection fraction likely from end-stage renal disease. Her kidney dysfunction worsened throughout hospitalization and patient has temper dialysis catheter put in and she had 4 sessions of HD with significant improvement in her symptoms and decrease in her oxygen requirements. cut in worker did set up a dialysis chair and appointments for her outpatient dialysis. Patient also had VRE in her urine and ID was consulted and they recommended against treatment as they thought it a contamination since patient was asymptomatic. Today, patient is clinically stable and hemodynamically stable. She would be discharged to custodial in stable condition Discharge discussed with: patient - Time Spent with Patient Total time spent providing and/or coordinating discharge services: 42 minutes - Discharge Medications Prescriptions: Continued Levothyroxine [Synthroid] 88 mcg PO QAM Hydralazine HCl 50 mg PO QID Isosorbide MONOnitrate (24 HR) [Imdur] 60 mg PO QAM Promethazine [Phenergan] 25 mg PO Q6HR PRN PRN Reason: Nausea Insulin DETEMIR [Levemir] 12 unit SQ HS Insulin DETEMIR [Levemir] 20 unit SQ QAM Sennosides [Senna] 17.2 mg PO BID Acetaminophen [Tylenol] 650 mg PO Q6HR PRN PRN Reason: PAIN/FEVER Aspirin 81 mg PO QAM NIFEdipine [Nifedipine ER] 60 mg PO QAM Pyridoxine HCl [Vitamin B-6] 50 mg PO QAM Psyllium [Metamucil Fiber Singles Packet] 1 packet PO TID #60 powd.pack Polyethylene Glycol 3350 [Natura-Lax] 17 gm PO BID #60 powder HYDROcodone/Acet 5/325 mg [[place] 5-325 mg] 1 tab PO Q6H PRN 3 Days #18 tab PRN Reason: Pain Docusate [Colace] 100 mg PO BID Amiodarone [Cordarone] 200 mg PO QAM Albuterol Sulfate [Ventolin Hfa] 1 - 2 puff IH Q4H PRN PRN Reason: Shortness Of Breath/Wheezing Allopurinol [Zyloprim 100 MG] 100 mg PO QAM Atorvastatin [Lipitor] 10 mg PO QAM Cholecalciferol (Vitamin D3) [Vitamin D3] 2,000 unit PO QAM Carvedilol 3.125 mg PO BID #60 tab Discontinued hydrALAZINE [HydrALAZINE] 25 mg PO QID Furosemide [Lasix] 40 mg PO QAM Fluconazole [Diflucan] 100 mg PO DAILY #7 tablet Home Medications: Levothyroxine [Synthroid] 88 mcg PO QAM 01/22/16 [History] Amiodarone [Cordarone] 200 mg PO QAM 03/25/16 [History] Docusate [Colace] 100 mg PO BID 03/25/16 [History] Albuterol Sulfate [Ventolin Hfa] 1 - 2 puff IH Q4H PRN 06/13/16 [History] Allopurinol [Zyloprim 100 MG] 100 mg PO QAM 03/19/18 [History] Atorvastatin [Lipitor] 10 mg PO QAM 03/19/18 [History] Carvedilol 3.125 mg PO BID #60 tab 03/19/18 [Rx] Cholecalciferol (Vitamin D3) [Vitamin D3] 2,000 unit PO QAM 03/19/18 [History] Hydralazine HCl 50 mg PO QID 08/25/18 [History] Insulin DETEMIR [Levemir] 12 unit SQ HS 08/25/18 [History] Insulin DETEMIR [Levemir] 20 unit SQ QAM 08/25/18 [History] Isosorbide MONOnitrate (24 HR) [Imdur] 60 mg PO QAM 08/25/18 [History] Promethazine [Phenergan] 25 mg PO Q6HR PRN 08/25/18 [History] Sennosides [Senna] 17.2 mg PO BID 08/25/18 [History] Acetaminophen [Tylenol] 650 mg PO Q6HR PRN 10/17/18 [History] Aspirin 81 mg PO QAM 10/17/18 [History] NIFEdipine [Nifedipine ER] 60 mg PO QAM 10/17/18 [History] Pyridoxine HCl [Vitamin B-6] 50 mg PO QAM 03/09/19 [History] Polyethylene Glycol 3350 [Natura-Lax] 17 gm PO BID #60 powder 03/13/19 [Rx] Psyllium [Metamucil Fiber Singles Packet] 1 packet PO TID #60 powd.pack 03/13/19 [Rx] HYDROcodone/Acet 5/325 mg [[place] 5-325 mg] 1 tab PO Q6H PRN 3 Days #18 tab 03/30/19 [Rx] Allergies/Adverse Reactions: Allergy/AdvReac Type Severity Reaction Status Date / Time Cyclobenzaprine Allergy Dizziness Verified 02/25/19 21:54 [From Flexeril] simvastatin AdvReac Muscle Pain Verified 02/25/19 21:54 Date of admission: 03/20/19 16:42 Primary care physician: Alisha Paniagua CNP Consults: 03/20/19 14:10 Consult to Nephrology [CONS] Routine Consulting Provider: Kidney Zulema/CISCO/KRYSTEN/ROSALBA Reason for Consult: raymond with chf Call Completed: No 03/20/19 14:42 Consult to Pulmonology [CONS] Routine Consulting Provider: Pulm Crit Care & Sleep Zulema Reason for Consult: hypoxic resp failure/ pneumonia Call Completed: No 03/21/19 11:50 Consult to Wound Care [CONS] Routine Reason for Consult: Pressure ulcer to coccyx and L heel Call Completed: No 03/21/19 12:12 Consult to Diversified Crops Supervisor [CONS] Routine Reason for SW Consult: From [place] [facility] 03/22/19 22:09 consult to make ready worker [Consult to Nutrition] [CONS] Routine Comment: Consulting Provider: NUTRITION Reason for Dietary Consult: Diet Education Other:: consult for low potassium diet. 03/25/19 09:43 Consult to Interventional Radiology [CONS] Routine Consulting Provider: Radiology Interventional Cols Reason for Consult: Please place tunneled line. Pt made NPO at 10 am, could you place Tunneled line today? If not please let me know and I will arrang for a tunneled line for tomorrow morning. Time Notified: 09:44 Call Completed: Yes Consult to Diversified Crops Supervisor [CONS] Routine Reason for SW Consult: Outpatient chair time for HD please. Thanks 03/26/19 09:00 Consult to Dialysis [CONS] ONCE 03/27/19 07:15 Consult to Dialysis [CONS] ONCE 03/27/19 11:22 Consult to Infectious Diseases [CONS] Routine Consulting Provider: Infectious Disease [place] Reason for Consult: Enterococcus and MRSA in the urine Call Completed: No 03/28/19 07:45 Consult to Dialysis [CONS] ONCE 03/30/19 09:15 Consult to Dialysis [CONS] ONCE - Constitutional Vitals: Temp Pulse Resp BP Pulse Ox 99.0 F 63 18 122/60 96 03/30/19 10:20 03/30/19 09:30 03/30/19 10:20 03/30/19 12:15 03/30/19 09:30 General appearance: Present: mild distress Exam: General: Patient is alert, oriented 3. No distress Head: Atraumatic, normal inspection, Eye: EOMI, PERRLA ENT: Mucous membranes moist. Neck: Normal inspection, Right TDC Respiratory: Right basilar crackles. Cardiovascular: Regular rate and regular rhythm. No murmurs, rubs, or gallops. GI: Soft, nondistended, normal bowel sounds. Extremities:No joint swelling, pedal edema, or tenderness noted. Neurological: Alert, oriented 3, no focal deficits. Psychiatric: normal affect, normal mood. Skin: Dry, intact, warm. Normal color. No rashes. - Patient Status Disposition: Transfer SNF Condition: Good Functional capacity at discharge: wheelchair bound Overall status at discharge: patient is back to baseline - Discharge Instructions Follow Up With: Alisha Paniagua AUTOMOBILE LOCATOR [Primary Care Provider] - - Diet and Activity Activity: as per physical therapy Diet: other (renal diet)
--- NOTE | 2019-03-30 12:41 | Physician Discharge Referral ---
ExtendedCare Referral Info Transfer To: SNF Provider in Charge after Transfer: PCP Institutional Level of Care: Skilled - Diagnosis (1) CHF exacerbation Priority: Primary Status: Resolved (2) Diabetes mellitus Priority: Secondary Status: Chronic (3) Hypothyroidism Priority: Secondary Status: Chronic (4) Acute and chronic respiratory failure with hypoxia Priority: Secondary Status: Resolved (5) COPD exacerbation Priority: Secondary Status: Chronic (6) DVT prophylaxis Priority: Secondary Status: Acute (7) Acute kidney injury superimposed on CKD Priority: Secondary Status: Chronic (8) Pressure injury of coccygeal region, stage 2 Priority: Secondary Status: Chronic - Transfer Medications Prescriptions: HYDROcodone/Acet 5/325 mg [[place] 5-325 mg] 1 tab PO Q6H PRN 3 Days #18 tab PRN Reason: Pain Prescription Printed Home Medications: Levothyroxine [Synthroid] 88 mcg PO QAM 01/22/16 [History] Amiodarone [Cordarone] 200 mg PO QAM 03/25/16 [History] Docusate [Colace] 100 mg PO BID 03/25/16 [History] Albuterol Sulfate [Ventolin Hfa] 1 - 2 puff IH Q4H PRN 06/13/16 [History] Allopurinol [Zyloprim 100 MG] 100 mg PO QAM 03/19/18 [History] Atorvastatin [Lipitor] 10 mg PO QAM 03/19/18 [History] Carvedilol 3.125 mg PO BID #60 tab 03/19/18 [Rx] Cholecalciferol (Vitamin D3) [Vitamin D3] 2,000 unit PO QAM 03/19/18 [History] Hydralazine HCl 50 mg PO QID 08/25/18 [History] Insulin DETEMIR [Levemir] 12 unit SQ HS 08/25/18 [History] Insulin DETEMIR [Levemir] 20 unit SQ QAM 08/25/18 [History] Isosorbide MONOnitrate (24 HR) [Imdur] 60 mg PO QAM 08/25/18 [History] Promethazine [Phenergan] 25 mg PO Q6HR PRN 08/25/18 [History] Sennosides [Senna] 17.2 mg PO BID 08/25/18 [History] Acetaminophen [Tylenol] 650 mg PO Q6HR PRN 10/17/18 [History] Aspirin 81 mg PO QAM 10/17/18 [History] NIFEdipine [Nifedipine ER] 60 mg PO QAM 10/17/18 [History] Pyridoxine HCl [Vitamin B-6] 50 mg PO QAM 03/09/19 [History] Polyethylene Glycol 3350 [Natura-Lax] 17 gm PO BID #60 powder 03/13/19 [Rx] Psyllium [Metamucil Fiber Singles Packet] 1 packet PO TID #60 powd.pack 03/13/19 [Rx] HYDROcodone/Acet 5/325 mg [[place] 5-325 mg] 1 tab PO Q6H PRN 3 Days #18 tab 03/30/19 [Rx] Allergies/Adverse Reactions: Allergy/AdvReac Type Severity Reaction Status Date / Time Cyclobenzaprine Allergy Dizziness Verified 02/25/19 21:54 [From Flexeril] simvastatin AdvReac Muscle Pain Verified 02/25/19 21:54 - Respiratory Orders Oxygen / L per min (2-3 l) Smoking Cessation: Smoking cessation has been advised. For more information, call the [place] Tobacco Quit Line at 8-363-IOLG-NOW. - Advance Directives Code Status: Full Code - Mobility Orders Chair - Rehabiliation Orders Rehab Potential: Fair Rehab Orders: Evaluation for Physical Therapy, Evaluation for Occupational Therapy - Treatments May check for fecal impaction rectally daily PRN - Diet Orders Renal CERTIFICATION: I certify that the transfer of the above named patient to an Extended Care Facility is necessary for the continuing treatment of the diagnosis listed. The above information is true and accurate reflection of patient's current condition. Confidential - Redisclosure prohibited without a patient's written consent.
[2019-03-30] MEDS: Insulin LISPRO 300 UNITS/3 ML VIAL SQ SCH ×3 (13:23→17:32)
[2019-03-30] MEDS: Insulin DETEMIR 100 UNIT/ML X5UNITS SQ SCH (13:24)
[2019-03-30] MEDS: Sennosides 8.6 MG TABLET PO SCH (13:25)
[2019-03-30] MEDS: Isosorbide MONOnitrate (24 HR) 60 MG TAB.ER.24H PO SCH (14:24)
[2019-03-30] MEDS: NIFEdipine XL (24 HR) 60 MG TAB.ER.24 PO SCH (14:24)
[2019-03-30] MEDS: Aspirin 81 MG TAB.CHEW PO SCH (14:24)
[2019-03-30] MEDS: *HR* Amiodarone 200 MG TABLET PO SCH (14:24)
[2019-03-30] MEDS: Cholecalciferol (D-3) 1,000 UNIT (25MCG) TABLET PO SCH (14:24)
[2019-03-30 14:30] VITALS: BP 148/75
--- NOTE | 2019-03-30 14:51 | Nephrology Progress Note ---
Date of Encounter: 03/30/19 - Assessment and Plan (1) Acute kidney injury superimposed on CKD Current Visit: Yes Status: Chronic (2) CHF exacerbation Current Visit: Yes Status: Resolved Qualifiers: Heart failure type: diastolic Qualified Code(s): I50.33 - Acute on chronic diastolic (congestive) heart failure (3) Acute and chronic respiratory failure with hypoxia Current Visit: Yes Status: Resolved (4) Pain, coccyx Current Visit: Yes Status: Acute Subjective Principal diagnosis: raymond/ckd Objective - Vital Signs Vital signs: Vital Signs Temp Pulse Resp BP Pulse Ox 03/30/19 13:50 98.0 F 18 148/75 03/30/19 13:20 121/69 03/30/19 13:00 133/67 03/30/19 12:45 129/77 03/30/19 12:30 125/65 03/30/19 12:15 122/60 03/30/19 12:00 115/54 03/30/19 11:45 115/54 03/30/19 11:30 125/62 03/30/19 11:15 128/60 03/30/19 11:00 124/53 03/30/19 10:45 131/60 03/30/19 10:30 134/58 03/30/19 10:20 99.0 F 18 139/63 03/30/19 09:30 63 18 96 03/30/19 07:47 18 96 03/30/19 06:56 97.6 F 63 18 164/72 97 03/30/19 05:11 98.2 F 62 14 147/62 96 03/30/19 04:12 16 95 03/30/19 00:28 97.7 F 61 15 148/69 98 03/29/19 23:21 16 95 03/29/19 21:25 94 03/29/19 20:12 98.5 F 60 24 152/68 94 03/29/19 19:56 93 03/29/19 16:00 18 94 03/29/19 15:00 98.0 F 63 14 153/60 93 Intake and Output 03/29/19 03/30/19 03/30/19 23:59 07:59 15:59 Intake Total 120 / 840 720 / 720 Output Total 0 / 0 2600 / 2600 Balance 120 / 840 -1880 / -1880 Intake: Oral 120 / 840 120 / 120 Intake, Rinseback and Flushes 600 / 600 Output: Urine 0 / 0 0 / 0 Total Dialysis (HD) Output 2600 / 2600 Other: Meal Breakfast Percent of Meal Consumed 50% Stool Size Small Stool Consistency loose Stool Characteristics Normal for Patient Stool Color Brown # Voids 1 1 # Urine Diapers 1 # Bowel Movements 1 Weight 84 kg Blood Glucose* 209 107 Hemodialysis Net Fluid Removed 2000 (mL) Patient Weight 03/30/19 23:59 Weight 84 kg - Lab 03/30/19 05:03 03/30/19 05:03 Most recent lab results 03/30/19 05:03 Calcium 9.6 Consult Discharge Plan - Plan Instructions: Heart Failure (DC), Hemodialysis (GEN), Dialysis Diet (GEN) Referrals: Alisha Paniagua CNP [Primary Care Provider] - Prescriptions: HYDROcodone/Acet 5/325 mg [[place] 5-325 mg] 1 tab PO Q6H PRN 3 Days #18 tab PRN Reason: Pain Prescription Printed
== END 2019-03-30 18:12 | DRG 291 ==
LOC: 2NENU → SUATTDRO 16:42
PROVIDERS: ADMIT Internal Medicine; ATTEND Internal Medicine

== ENCOUNTER 2020-04-11 23:38 | Inpatient (IN) ==
[2020-04-11 04:59] LABS: Basophils % 0.3 %; Eosinophils # 0.2 K/mcL (0.0-0.6); Eosinophils % 1.9 %; Hematocrit 28.7 % (35.3-44.9); Hemoglobin 10.2 g/dL (11.5-15.4); Immature Granulocytes % 0.6 % (0-4); Lymphocytes # 1.4 K/mcL (0.6-4.6); Lymphocytes % 14.4 %; Mean Corpuscular HGB Conc 35.5 g/dL (31.6-35.5); Mean Corpuscular Hemoglobin 34.8 pg (28.0-33.3); Mean Platelet Volume 10.6 fL (9.4-12.4); Monocytes # 0.8 K/mcL (0.0-1.3); Monocytes % 8.1 %; Platelet Count 110 K/mcL (140-400); Red Blood Count 2.93 M/mcL (3.82-4.97); Red Cell Distribution Width 14.5 % (11.5-14.5); Segmented Neutrophils % 74.7 %; White Blood Count 9.4 K/mcL (4.3-11.1)
[2020-04-11 05:27] LABS: Albumin 2.1 g/dL (3.5-5.7); Bilirubin,Total 0.7 mg/dL (0.3-1.0); Calcium 8.1 mg/dL (8.6-10.3); Globulin 2.1 g/dL (2.4-3.5); Magnesium 1.3 mg/dL (1.6-2.6); Phosphorous 1.5 mg/dL (2.7-4.5); Potassium 1.8 mEq/L (3.5-5.1); Total Protein 4.2 g/dL (6.4-8.9)
[2020-04-11] MEDS: *HR* Heparin 5,000 UNIT/ML VIAL SQ SCH ×3 (06:17→21:31)
[2020-04-11] MEDS: Ondansetron ODT 4 MG TAB.RAPDIS SL PRN (06:37)
[2020-04-11 08:36] LABS: Estimated Average Glucose 166 mg/dl
[2020-04-11 11:51] LABS: Hepatitis B Surface Antigen Nonreactive (Nonreactive)
[2020-04-11] MEDS: Insulin LISPRO 300 UNITS/3 ML VIAL SQ SCH ×2 (12:04→16:42)
[~2020-04-11 23:38] MED LIST: *HR* Dextrose 50 % in Water (Vial) 50 ML VIAL IVP PRN; *HR* HYDROcodone/Acet 5/325 mg TABLET PO PRN; D5% in Water 1,000 ML IVC PRN; Dextrose Gel 15 GM/37.5 ML TUBE PO PRN; Naloxone 0.4 MG/ML INJ IVP PRN; Ondansetron ODT 4 MG TAB.RAPDIS SL ONE; Perit. Dialysis with Dex 1.5 % 12,000 ML PERITONEAL ONE; Potassium Chloride 40 MEQ, Lidocaine 1% 2 ML in 0.9 % Sodium Chloride 500 ML IVPB ONE
[2020-04-12] MEDS: Insulin LISPRO 300 UNITS/3 ML VIAL SQ SCH ×6 (00:18→21:40)
[2020-04-12] MEDS: *HR* Heparin 5,000 UNIT/ML VIAL SQ SCH ×3 (06:03→21:45)
[2020-04-12 06:10] LABS: Basophils % 0.3 %; Eosinophils # 0.2 K/mcL (0.0-0.6); Eosinophils % 2.3 %; Hematocrit 25.3 % (35.3-44.9); Hemoglobin 8.9 g/dL (11.5-15.4); Immature Granulocytes % 0.6 % (0-4); Lymphocytes # 2.5 K/mcL (0.6-4.6); Lymphocytes % 28.2 %; Mean Corpuscular HGB Conc 35.2 g/dL (31.6-35.5); Mean Corpuscular Hemoglobin 34.2 pg (28.0-33.3); Mean Corpuscular Volume 97.3 fL (83.0-100.0); Mean Platelet Volume 10.6 fL (9.4-12.4); Monocytes # 0.9 K/mcL (0.0-1.3); Neutrophils # 5.1 K/mcL (1.6-8.9); Platelet Count 122 K/mcL (140-400); Red Cell Distribution Width 14.6 % (11.5-14.5); Segmented Neutrophils % 58.6 %; White Blood Count 8.8 K/mcL (4.3-11.1)
[2020-04-12 06:31] LABS: Calcium 7.7 mg/dL (8.6-10.3); Magnesium 1.5 mg/dL (1.6-2.6); Phosphorous 1.6 mg/dL (2.7-4.5); Potassium 2.5 mEq/L (3.5-5.1)
[2020-04-12] MEDS ORDERED: Potassium Chloride 40 MEQ, Lidocaine 1% 2 ML in 0.9 % Sodium Chloride 500 ML IVPB ONE (07:30)
[2020-04-12] MEDS ORDERED: Perflutren Lipid Microsphere 1.3 ML in 0.9 % Sodium Chloride 8.7 ML IVP PRN (08:28)
[2020-04-12] MEDS: Ondansetron ODT 4 MG TAB.RAPDIS SL PRN (08:54)
[2020-04-12] MEDS ORDERED: Potassium Effervescent 25 MEQ TABLET.EFF PO ONE (10:47)
[2020-04-12] MEDS ORDERED: Acetaminophen 325 MG TABLET PO PRN (15:40)
[2020-04-12] MEDS ORDERED: Perit. Dialysis with Dex 1.5 % 12,000 ML PERITONEAL ONE (19:00)
[2020-04-12] MEDS: carvediloL 6.25 MG TABLET PO SCH (21:45)
[2020-04-12] MEDS: hydrALAZINE 25 MG TABLET PO SCH (21:45)
[2020-04-13 05:00] LABS: Hemoglobin 8.3 g/dL (11.5-15.4); Mean Corpuscular HGB Conc 34.6 g/dL (31.6-35.5); Mean Corpuscular Hemoglobin 35.2 pg (28.0-33.3); Mean Corpuscular Volume 101.7 fL (83.0-100.0); Red Blood Count 2.36 M/mcL (3.82-4.97)
[2020-04-13 05:02] LABS: Immature Platelets 3.2 % (1.1-6.1); Mean Platelet Volume 11.2 fL (9.4-12.4); Red Cell Distribution Width 15.6 % (11.5-14.5); White Blood Count 5.5 K/mcL (4.3-11.1)
[2020-04-13 05:20] LABS: Calcium 8.2 mg/dL (8.6-10.3); Potassium 3.3 mEq/L (3.5-5.1)
[2020-04-13 05:43] LABS: Ferritin 1293 ng/mL (10-120); Iron 71 mcg/dL (50-170); Transferrin < 75 mg/dL (203-362)
[2020-04-13 05:45] LABS: Folate 7.8 ng/mL (3.0-16.0)
[2020-04-13] MEDS: *HR* Heparin 5,000 UNIT/ML VIAL SQ SCH ×3 (06:09→21:31)
[2020-04-13] MEDS ORDERED: Potassium Effervescent 25 MEQ TABLET.EFF PO ONE ×2 (07:23→17:00)
[2020-04-13] MEDS: Insulin LISPRO 300 UNITS/3 ML VIAL SQ SCH ×4 (08:49→16:28)
[2020-04-13] MEDS: *HR* Amiodarone 200 MG TABLET PO SCH (08:50)
[2020-04-13] MEDS: carvediloL 6.25 MG TABLET PO SCH ×2 (08:50→20:06)
[2020-04-13] MEDS: Aspirin 81 MG TAB.CHEW PO SCH (08:50)
[2020-04-13] MEDS: hydrALAZINE 25 MG TABLET PO SCH ×3 (08:50→20:03)
[2020-04-13] MEDS: Cholecalciferol (D-3) 1,000 UNIT (25MCG) TABLET PO SCH (08:50)
[2020-04-13] MEDS: allopurinoL 100 MG TABLET PO SCH (08:50)
[2020-04-13] MEDS: Multivit/Ca/Min/Fe/FA 1 TAB TABLET PO SCH (08:50)
[2020-04-13] MEDS ORDERED: [UNRECOGNIZED DRUG - OTHER] PO SCH (09:00)
[2020-04-13] MEDS ORDERED: polyethylene glycoL 3350 17 GM POWD.PACK PO SCH (09:00)
[2020-04-13] MEDS ORDERED: VIT B COMPLEX AND C PO SCH (09:00)
[2020-04-13] MEDS ORDERED: Sennosides 8.6 MG TABLET PO SCH (09:00)
[2020-04-13] MEDS ORDERED: FOLIC ACID PO SCH (09:00)
[2020-04-13] MEDS ORDERED: Perit. Dialysis with Dex 1.5 % 12,000 ML PERITONEAL ONE (19:00)
[2020-04-13] MEDS ORDERED: Insulin LISPRO 300 UNITS/3 ML VIAL SQ SCH (21:00)
[2020-04-14 02:52] LABS: Hematocrit 26.5 % (35.3-44.9); Mean Corpuscular Hemoglobin 35.2 pg (28.0-33.3); Mean Corpuscular Volume 103.5 fL (83.0-100.0); Mean Platelet Volume 11.2 fL (9.4-12.4); Platelet Count 105 K/mcL (140-400); Red Blood Count 2.56 M/mcL (3.82-4.97); Red Cell Distribution Width 15.9 % (11.5-14.5); White Blood Count 6.2 K/mcL (4.3-11.1)
[2020-04-14 03:02] LABS: Calcium 8.5 mg/dL (8.6-10.3); Magnesium 1.8 mg/dL (1.6-2.6)
[2020-04-14] MEDS: *HR* Heparin 5,000 UNIT/ML VIAL SQ SCH ×2 (05:30→16:32)
[2020-04-14] MEDS ORDERED: VANCOMYCIN PERITONEAL ONE (08:00)
[2020-04-14] MEDS ORDERED: DEX PERITONEAL ONE (08:00)
[2020-04-14] MEDS ORDERED: PERIT DIALYSIS PERITONEAL ONE (08:00)
[2020-04-14] MEDS: Aspirin 81 MG TAB.CHEW PO SCH (10:20)
[2020-04-14] MEDS: *HR* Amiodarone 200 MG TABLET PO SCH (10:20)
[2020-04-14] MEDS: Cholecalciferol (D-3) 1,000 UNIT (25MCG) TABLET PO SCH (10:20)
[2020-04-14] MEDS: carvediloL 6.25 MG TABLET PO SCH (10:20)
[2020-04-14] MEDS: hydrALAZINE 25 MG TABLET PO SCH ×2 (10:20→16:32)
[2020-04-14] MEDS: Insulin LISPRO 300 UNITS/3 ML VIAL SQ SCH ×3 (10:20→16:32)
[2020-04-14] MEDS: Multivit/Ca/Min/Fe/FA 1 TAB TABLET PO SCH (10:21)
[2020-04-14] MEDS: allopurinoL 100 MG TABLET PO SCH (10:21)
[2020-04-14 16:41] VITALS: BP 113/49
[2020-04-14 17:40] LABS: Adenovirus Not Detected (Not Detect); Coronavirus 229E Not Detected (Not Detect); Coronavirus HKU1 Not Detected (Not Detect); Coronavirus NL63 Not Detected (Not Detect); Coronavirus OC43 Not Detected (Not Detect); Human Metapneumovirus Not Detected (Not Detect); SARS-CoV-2 Not Detected (Not Detect)
[2020-04-14 17:41] LABS: Bordetella Pertussis Not Detected (Not Detect); Chlamydophila pneumoniae Not Detected (Not Detect); Human Rhinovirus/Enterovirus DETECTED (Not Detect); Influenza A Subtype 2009 H1 Not Detected (Not Detect); Influenza B Not Detected (Not Detect); Mycoplasma pneumoniae Not Detected (Not Detect); Parainfluenza Virus 1 Not Detected (Not Detect); Parainfluenza Virus 2 Not Detected (Not Detect); Parainfluenza Virus 3 Not Detected (Not Detect); Parainfluenza Virus 4 Not Detected (Not Detect); Respiratory Syncytial Virus Not Detected (Not Detect)
[2020-04-14] MEDS ORDERED: Perit. Dialysis with Dex 1.5 % 12,000 ML PERITONEAL ONE (19:00)
== END 2020-04-14 18:58 | DRG 640 ==
LOC: 2ANU → SUATTDRO 04-12 14:47
PROVIDERS: ADMIT Family Medicine; ATTEND Internal Medicine

== ENCOUNTER 2020-04-28 17:24 | Inpatient (IN) ==
[2020-04-28 18:12] LABS: Basophils % 0.3 %; Eosinophils # 0.2 K/mcL (0.0-0.6); Eosinophils % 1.7 %; Hematocrit 32.4 % (35.3-44.9); Hemoglobin 10.6 g/dL (11.5-15.4); Immature Granulocytes % 0.3 % (0-4); Lymphocytes # 2.1 K/mcL (0.6-4.6); Lymphocytes % 24.1 %; Mean Corpuscular HGB Conc 32.7 g/dL (31.6-35.5); Mean Corpuscular Volume 106.9 fL (83.0-100.0); Monocytes # 0.7 K/mcL (0.0-1.3); Neutrophils # 5.8 K/mcL (1.6-8.9); Platelet Count 171 K/mcL (140-400); Red Blood Count 3.03 M/mcL (3.82-4.97); Red Cell Distribution Width 14.9 % (11.5-14.5); Segmented Neutrophils % 65.6 %; White Blood Count 8.9 K/mcL (4.3-11.1)
[2020-04-28 18:19] LABS: INR 0.9; Prothrombin Time 10.6 Seconds (9.4-12.1)
[2020-04-28 18:21] LABS: Activated Partial Thrombo Time 24.4 Seconds (26.0-36.0)
[2020-04-28 18:38] LABS: Calcium 8.1 mg/dL (8.6-10.3); Potassium 2.7 mEq/L (3.5-5.1); Troponin I 0.07 ng/mL (< 0.04)
[2020-04-28] MEDS ORDERED: Potassium Chloride 40 MEQ, Lidocaine 1% 2 ML in 0.9 % Sodium Chloride 500 ML IVPB ONE (18:40)
[2020-04-28] MEDS ORDERED: Acetaminophen 325 MG TABLET PO PRN (22:14)
[2020-04-28] MEDS ORDERED: Naloxone 0.4 MG/ML INJ IVP PRN (22:14)
[2020-04-28] MEDS ORDERED: Ondansetron 4 MG/2 ML VIAL IVP PRN (22:14)
[2020-04-29] MEDS ORDERED: Dextrose Gel 15 GM/37.5 ML TUBE PO PRN ×2 (00:30)
[2020-04-29] MEDS ORDERED: *HR* Dextrose 50 % in Water (Vial) 50 ML VIAL IVP PRN (00:30)
[2020-04-29] MEDS: Insulin LISPRO 300 UNITS/3 ML VIAL SQ SCH ×5 (00:30→20:39)
[2020-04-29] MEDS ORDERED: D5% in Water 1,000 ML IVC PRN (00:30)
[2020-04-29 06:46] LABS: Basophils % 0.5 %; Eosinophils # 0.3 K/mcL (0.0-0.6); Eosinophils % 4.8 %; Hematocrit 26.6 % (35.3-44.9); Hemoglobin 8.9 g/dL (11.5-15.4); Immature Granulocytes % 0.5 % (0-4); Lymphocytes # 1.8 K/mcL (0.6-4.6); Lymphocytes % 32.2 %; Mean Corpuscular HGB Conc 33.5 g/dL (31.6-35.5); Mean Corpuscular Hemoglobin 35.7 pg (28.0-33.3); Mean Corpuscular Volume 106.8 fL (83.0-100.0); Monocytes # 0.6 K/mcL (0.0-1.3); Monocytes % 9.9 %; Platelet Count 138 K/mcL (140-400); Red Blood Count 2.49 M/mcL (3.82-4.97); Red Cell Distribution Width 15.1 % (11.5-14.5); Segmented Neutrophils % 52.1 %; White Blood Count 5.7 K/mcL (4.3-11.1)
[2020-04-29 06:52] LABS: Prothrombin Time 11.3 Seconds (9.4-12.1)
[2020-04-29 07:07] LABS: Albumin 1.9 g/dL (3.5-5.7); Albumin/Globulin Ratio 1.1 (1.1-2.2); Bilirubin,Total 0.5 mg/dL (0.3-1.0); Calcium 7.8 mg/dL (8.6-10.3); Globulin 1.8 g/dL (2.4-3.5); Magnesium 1.3 mg/dL (1.6-2.6); Phosphorous 2.6 mg/dL (2.7-4.5); Total Protein 3.7 g/dL (6.4-8.9)
[2020-04-29] MEDS: Aspirin 81 MG TAB.CHEW PO SCH (07:53)
[2020-04-29] MEDS: *HR* Amiodarone 200 MG TABLET PO SCH (07:53)
[2020-04-29] MEDS: carvediloL 6.25 MG TABLET PO SCH ×2 (07:53→16:23)
[2020-04-29] MEDS: Sennosides 8.6 MG TABLET PO SCH (07:53)
[2020-04-29] MEDS ORDERED: *HR* OxyCODONE/APAP 5/325 TABLET PO PRN (14:54)
[2020-04-29] MEDS ORDERED: Bisacodyl 10 MG RECTAL SUPPOSITORY RC PRN (14:54)
[2020-04-29] MEDS: *HR* Heparin 5,000 UNIT/ML VIAL SQ SCH (20:42)
[2020-04-30] MEDS: *HR* Heparin 5,000 UNIT/ML VIAL SQ SCH ×3 (05:35→20:24)
[2020-04-30 06:07] LABS: Basophils % 0.4 %; Eosinophils # 0.2 K/mcL (0.0-0.6); Eosinophils % 3.7 %; Hematocrit 27.5 % (35.3-44.9); Immature Granulocytes % 0.4 % (0-4); Lymphocytes # 1.7 K/mcL (0.6-4.6); Lymphocytes % 34.1 %; Mean Corpuscular HGB Conc 32.7 g/dL (31.6-35.5); Mean Corpuscular Hemoglobin 35.2 pg (28.0-33.3); Mean Corpuscular Volume 107.4 fL (83.0-100.0); Mean Platelet Volume 9.8 fL (9.4-12.4); Monocytes # 0.4 K/mcL (0.0-1.3); Monocytes % 8.5 %; Neutrophils # 2.7 K/mcL (1.6-8.9); Platelet Count 130 K/mcL (140-400); Red Blood Count 2.56 M/mcL (3.82-4.97); Red Cell Distribution Width 15.4 % (11.5-14.5); Segmented Neutrophils % 52.9 %; White Blood Count 5.1 K/mcL (4.3-11.1)
[2020-04-30 06:09] LABS: Estimated Average Glucose 146 mg/dl
[2020-04-30 07:23] LABS: Folate 9.3 ng/mL (3.0-16.0)
[2020-04-30 07:47] LABS: Calcium 7.7 mg/dL (8.6-10.3); Magnesium 1.7 mg/dL (1.6-2.6); Potassium 4.1 mEq/L (3.5-5.1)
[2020-04-30] MEDS: Cholecalciferol (D-3) 1,000 UNIT (25MCG) TABLET PO SCH (10:22)
[2020-04-30] MEDS: Mirtazapine 15 MG TABLET PO SCH (10:22)
[2020-04-30] MEDS: Multivit/Ca/Min/Fe/FA 1 TAB TABLET PO SCH (10:22)
[2020-04-30] MEDS: Sennosides 8.6 MG TABLET PO SCH (10:22)
[2020-04-30] MEDS: *HR* Amiodarone 200 MG TABLET PO SCH (10:23)
[2020-04-30] MEDS: polyethylene glycoL 3350 17 GM POWD.PACK PO SCH (10:23)
[2020-04-30] MEDS: Renal Vitamin 1 CAP CAPSULE PO SCH (10:23)
[2020-04-30] MEDS: Aspirin 81 MG TAB.CHEW PO SCH (10:23)
[2020-04-30] MEDS: carvediloL 6.25 MG TABLET PO SCH ×2 (10:23→17:35)
[2020-04-30] MEDS: Insulin LISPRO 300 UNITS/3 ML VIAL SQ SCH ×4 (10:24→20:30)
[2020-04-30] MEDS ORDERED: *HR* OxyCODONE/APAP 5/325 TABLET PO PRN (15:26)
[2020-05-01] MEDS: *HR* Heparin 5,000 UNIT/ML VIAL SQ SCH ×3 (05:47→21:04)
[2020-05-01] MEDS: Cholecalciferol (D-3) 1,000 UNIT (25MCG) TABLET PO SCH (08:50)
[2020-05-01] MEDS: allopurinoL 100 MG TABLET PO SCH (08:50)
[2020-05-01] MEDS: *HR* Amiodarone 200 MG TABLET PO SCH (08:50)
[2020-05-01] MEDS: Renal Vitamin 1 CAP CAPSULE PO SCH (08:50)
[2020-05-01] MEDS: Aspirin 81 MG TAB.CHEW PO SCH (08:50)
[2020-05-01] MEDS: Multivit/Ca/Min/Fe/FA 1 TAB TABLET PO SCH (08:51)
[2020-05-01] MEDS: Sennosides 8.6 MG TABLET PO SCH (08:51)
[2020-05-01] MEDS: Insulin LISPRO 300 UNITS/3 ML VIAL SQ SCH ×4 (08:51→21:00)
[2020-05-01] MEDS: polyethylene glycoL 3350 17 GM POWD.PACK PO SCH (08:51)
[2020-05-01] MEDS: Mirtazapine 15 MG TABLET PO SCH (08:51)
[2020-05-01] MEDS: carvediloL 6.25 MG TABLET PO SCH ×2 (08:51→17:40)
[2020-05-01] MEDS ORDERED: Perit. Dialysis with Dex 2.5 % 12,000 ML PERITONEAL SCH (09:00)
[2020-05-01 10:29] LABS: Basophils % 0.4 %; Eosinophils # 0.2 K/mcL (0.0-0.6); Eosinophils % 3.3 %; Hematocrit 28.3 % (35.3-44.9); Hemoglobin 9.2 g/dL (11.5-15.4); Immature Granulocytes % 0.4 % (0-4); Lymphocytes # 1.5 K/mcL (0.6-4.6); Lymphocytes % 28.4 %; Mean Corpuscular HGB Conc 32.5 g/dL (31.6-35.5); Mean Corpuscular Hemoglobin 35.2 pg (28.0-33.3); Mean Corpuscular Volume 108.4 fL (83.0-100.0); Mean Platelet Volume 10.1 fL (9.4-12.4); Monocytes # 0.5 K/mcL (0.0-1.3); Monocytes % 8.3 %; Neutrophils # 3.2 K/mcL (1.6-8.9); Platelet Count 153 K/mcL (140-400); Red Blood Count 2.61 M/mcL (3.82-4.97); Red Cell Distribution Width 15.6 % (11.5-14.5); Segmented Neutrophils % 59.2 %; White Blood Count 5.4 K/mcL (4.3-11.1)
[2020-05-01 10:49] LABS: Calcium 7.7 mg/dL (8.6-10.3); Magnesium 1.7 mg/dL (1.6-2.6); Potassium 4.2 mEq/L (3.5-5.1)
[2020-05-02 01:03] LABS: Basophils % 0.4 %; Eosinophils # 0.2 K/mcL (0.0-0.6); Eosinophils % 3.1 %; Hematocrit 26.2 % (35.3-44.9); Hemoglobin 8.7 g/dL (11.5-15.4); Immature Granulocytes % 0.4 % (0-4); Lymphocytes # 1.8 K/mcL (0.6-4.6); Lymphocytes % 34.5 %; Mean Corpuscular HGB Conc 33.2 g/dL (31.6-35.5); Mean Corpuscular Hemoglobin 36.4 pg (28.0-33.3); Mean Corpuscular Volume 109.6 fL (83.0-100.0); Mean Platelet Volume 10.1 fL (9.4-12.4); Monocytes # 0.6 K/mcL (0.0-1.3); Monocytes % 10.5 %; Neutrophils # 2.7 K/mcL (1.6-8.9); Platelet Count 133 K/mcL (140-400); Red Blood Count 2.39 M/mcL (3.82-4.97); Red Cell Distribution Width 15.3 % (11.5-14.5); Segmented Neutrophils % 51.1 %; White Blood Count 5.2 K/mcL (4.3-11.1)
[2020-05-02 01:11] LABS: Calcium 7.5 mg/dL (8.6-10.3); Potassium 3.7 mEq/L (3.5-5.1)
[2020-05-02 01:12] LABS: Magnesium 1.7 mg/dL (1.6-2.6); Phosphorous 3.6 mg/dL (2.7-4.5)
[2020-05-02] MEDS: *HR* Heparin 5,000 UNIT/ML VIAL SQ SCH (05:50)
[2020-05-02] MEDS: Insulin LISPRO 300 UNITS/3 ML VIAL SQ SCH ×2 (10:37→11:11)
[2020-05-02] MEDS: Renal Vitamin 1 CAP CAPSULE PO SCH (10:38)
[2020-05-02] MEDS: Aspirin 81 MG TAB.CHEW PO SCH (10:38)
[2020-05-02] MEDS: Sennosides 8.6 MG TABLET PO SCH (10:38)
[2020-05-02] MEDS: *HR* Amiodarone 200 MG TABLET PO SCH (10:38)
[2020-05-02] MEDS: allopurinoL 100 MG TABLET PO SCH (10:39)
[2020-05-02] MEDS: Cholecalciferol (D-3) 1,000 UNIT (25MCG) TABLET PO SCH (10:39)
[2020-05-02] MEDS: carvediloL 6.25 MG TABLET PO SCH (10:39)
[2020-05-02] MEDS: Mirtazapine 15 MG TABLET PO SCH (10:39)
[2020-05-02] MEDS: Multivit/Ca/Min/Fe/FA 1 TAB TABLET PO SCH (10:39)
[2020-05-02] MEDS: polyethylene glycoL 3350 17 GM POWD.PACK PO SCH (10:45)
[2020-05-02 15:30] LABS: Adenovirus Not Detected (Not Detect); Bordetella Pertussis Not Detected (Not Detect); Chlamydophila pneumoniae Not Detected (Not Detect); Coronavirus 229E Not Detected (Not Detect); Coronavirus HKU1 Not Detected (Not Detect); Coronavirus NL63 Not Detected (Not Detect); Coronavirus OC43 Not Detected (Not Detect); Human Metapneumovirus Not Detected (Not Detect); Human Rhinovirus/Enterovirus Not Detected (Not Detect); Influenza A Subtype 2009 H1 Not Detected (Not Detect); Influenza B Not Detected (Not Detect); Mycoplasma pneumoniae Not Detected (Not Detect); Parainfluenza Virus 1 Not Detected (Not Detect); Parainfluenza Virus 2 Not Detected (Not Detect); Parainfluenza Virus 3 Not Detected (Not Detect); Parainfluenza Virus 4 Not Detected (Not Detect); Respiratory Syncytial Virus Not Detected (Not Detect); SARS-CoV-2 Not Detected (Not Detect)
[2020-05-02 15:41] VITALS: BP 128/74
== END 2020-05-02 17:00 | DRG 640 ==
LOC: 2ANU 17:24 → EMEROOARM 17:24 → SUATTDRO 22:36 → 2ANU 23:31
PROVIDERS: ADMIT Internal Medicine; ATTEND Pharmacist